=== PATIENT | female | born 1985 | race American Indian/Alaskan Native ===

== ENCOUNTER 2021-03-06 17:48 | Inpatient (IN) | payer OTHER ==
[2021-03-06] MEDS ORDERED: ONDANSETRON 4 MG/2 ML INJ IV PRN (21:37)
[2021-03-06] MEDS ORDERED: DOCUSATE SODIUM 100 MG CAP PO PRN (21:37)
[2021-03-06] MEDS ORDERED: SODIUM CHLORIDE NASAL SPRAY 44ML NS PRN (21:37)
[2021-03-06] MEDS ORDERED: ACETAMINOPHEN 325 MG TAB PO PRN (21:37)
[2021-03-06 21:55] LABS: Hematocrit 35.9 % (30.3-42.9); Hemoglobin 11.5 gm/dl (10.1-14.3); Mean Corpuscular HGB Conc 32 % (30-34); Mean Corpuscular Volume 86 fl (79-97); Platelet Count 247 K/mm3 (140-440); Red Blood Count 4.17 M/mm3 (3.65-5.03); Red Cell Distribution Width 14.1 % (13.2-15.2)
[2021-03-06] MEDS ORDERED: LACTATED RINGERS 1,000 ML IV SCH (22:00)
[2021-03-06 22:14] LABS: Alanine Aminotransferase 9 units/L (7-56); Uric Acid 4.7 mg/dL (3.5-7.6)
[2021-03-06] MEDS ORDERED: LACTATED RINGERS 500 ML IV ONE (22:22)
--- NOTE | 2021-03-06 22:29 | History and Physical Report ---
History of Present Illness Date of examination: 03/06/21 Chief complaint: Pt sent from office d/t elevated blood pressures in severe range History of present illness: EDC Confirmation: 05/01/2021 Past History : 3 Term Births: 1 Premature Births: 0 Living Children: 1 Para: 1 Mult. Births: 0 Prev : 1 Aborta: 0 Elect. Ab: 1 Spont. Ab: 0 Ectopics: 0 # 1 Delivery date: 2005 Weeks Gestation: 11 wks labor: no Delivery type: SAB Comments: Bleeding. D&C, no complications # 2 Delivery date: 2013 Weeks Gestation: 37 labor: no Delivery type: Hours of labor: ? Anesthesia type: general Delivery location: [place] Infant Sex: Female weight: ? Comments: Emergency , don't remeber the details. High blood pressure, Was in the ICU. Past Medical History: Reviewed and updated today: Hypertension Past Surgical History: Reviewed and updated today: negative Family History Summary: Mother - Has Family History of Stomach Cancer - Entered On: 11/09/2020 Father - Has Family History of CVA or Stroke - Entered On: 11/09/2020 Social History: Patient is single Smoking History: Patient has never smoked. Risk Factors: Smoked Tobacco Use: Never smoker Smokeless Tobacco Use: Never Counseled to Quit/Cut Down: yes Passive Smoke Exposure: no HIV High Risk Behavior: no Exercise: no Seatbelt Use: preg-christian counselor % No Dietary Counseling Reason: pn yes PAP Smear History: Date of Last PAP Smear: 11/10/2019 Results: Normal Alcohol Use: no Drug Use: no Past Medical History Anesthesia Complications: negative Anemia: negative Autoimmune Disorder: negative Bleeding Disorder: negative Blood Transfusions: negative Breast Disease: negative Diabetes: negative Heart Disease: negative Hypertension: positive Hepatitis/Liver Disease: negative Kidney Disease/UTI: negative Neurologic/Epilepsy/Migraines: negative Phlebitis/Varicosities: negative Psychiatric: negative Pulmonary Disease/Asthma: negative Thyroid Disease: negative Hospitalizations: negative 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 Infection History Hx of STD: none HIV Risk Eval: no Hepatitis B Risk Eval: low risk Personal hx. of genital herpes: no Partner hx. of genital herpes: no Rash, Viral, or Febrile illness since last LMP? no Varicella/Chicken Pox Status: Previous Disease TB Risk: no Genetic History Congenital Heart Defect: Mom: no Dad: no Mily Disease: Mom: no Dad: no Thalassemia Mom: no Dad: no Neural Tube Defect Mom: no Dad: no Down's Syndrome Mom: no Dad: no Joce-Sachs Mom: no Dad: no Sickle Cell Disease/Trait Mom: no Dad: no Hemophilia Mom: no Dad: no Muscular Dystrophy Mom: no Dad: no Cystic Fibrosis Mom: no Dad: no [place] Chorea Mom: no Dad: no Mental Retardation Mom: no Dad: no Fragile X Mom: no Dad: no Other Genetic/Chromosomal Disorder Mom: no Dad: no Child w/other defect Mom: no Dad: no Enviromental Exposures Xray Exposure: no Medication, drug, or alcohol use since LMP: no Chemical/Other Exposure: no Exposure to Cat Liter: no Hx of Parvovirus (Fifth Disease): no Occupational Exposure to Children: none Laboratory Results Past History Past Medical History: other (see HPI) Past Surgical History: other (see HPI) 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) Family/Genetic History: other (see HPI) - Obstetrical History Expected Date of Delivery: 05/01/21 Actual Gestation: 32 Week(s) 1 Day(s) : 3 Para: 1 Hx # Term Pregnancies: 1 Number of Pregnancies: 0 Spontaneous Abortions: 1 Induced : 0 Number of Living Children: 1 Medications and Allergies Allergies Allergy/AdvReac Type Severity Reaction Status Date / Time No Known Allergies Allergy Unverified 03/06/21 20:34 Active Meds: Active Medications Acetaminophen (Acetaminophen 325 Mg Tab) 650 mg PO Q4H PRN PRN Reason: Pain MILD(1-3)/Fever >100.5/WELLS Docusate Sodium (Docusate Sodium 100 Mg Cap) 100 mg PO Q12H PRN PRN Reason: Constipation Lactated Ringer's (Lactated Ringers) 500 mls @ 999 mls/hr IV BOLUS ONE Stop: 03/06/21 22:52 Lactated Ringer's (Lactated Ringers) 1,000 mls @ 125 mls/hr IV DIRECT JOSÉ MIGUEL Labetalol HCl (Labetalol 200 Mg Tab) 200 mg PO BID JOSÉ MIGUEL Multivitamins/Iron/Calcium ( Tud60-Cf Fumarate-Folic Acid Vit Tab) 1 each PO QDAY JOSÉ MIGUEL Ondansetron HCl (Ondansetron 4 Mg/2 Ml Inj) 4 mg IV Q6H PRN PRN Reason: Nausea And Vomiting Sodium Chloride (Sodium Chloride Nasal [place] 44ml) 2 spray NS Q4H PRN PRN Reason: Congestion Review of Systems All systems: negative - Vital Signs Vital signs: Vital Signs Pulse BP 100 H 153/92 03/06/21 20:17 03/06/21 20:17 Temp Pulse Resp BP Pulse Ox 98 F 97 H 17 142/76 03/06/21 20:19 03/06/21 21:57 03/06/21 20:19 03/06/21 21:57 - Physical Exam Cardiovascular: Regular rate Lungs: Positive: Normal air movement Abdomen: Positive: normal appearance, soft Extremities: Positive: normal Deep Tendon Reflex Grade: Normal +2 - Obstetrical FHR: auscultation normal Uterine Contraction Monitor Mode: External Uterine Contraction Pattern: Absent Uterine Tone Measurement Phase: Resting Results Result Diagrams: 03/06/21 21:30 03/06/21 21:30 All other labs normal. Assessment and Plan 35 y/o @ 32 weeks sent to [facility] from office where she was seen for an appointment. b/p at appointment in office was 150/100. She was counseled on r isks of uncontrolled htn in and pt refuses medication to management htn. Of note, patient has not been compliant with keeping appointments and has yet to do 1hGTT, she has only had 2 other visits prior today (one in October and one in November). Pt has been seen by [facility], last visit 02/26/2021 - efw 18th%. While in triage for pre-e labs, several severely elevated blood pressures recorded. pt denies WELLS/visual changes/epigastric pain. Plan to admit patient for b/p control and 24hr urine collection to evaluate for superimposed pre-e on existing htn. If b/p continue to be in severe range, will start magnesium sulfate for neuro protection. - Patient Problems (1) 32 weeks gestation of Current Visit: Yes Status: Acute (2) HTN (hypertension) Current Visit: Yes Status: Acute Qualifiers: Hypertension type: primary hypertension Qualified Code(s): I10 - Essential (primary) hypertension (3) Non compliance with medical treatment Current Visit: Yes Status: Acute (4) Previous section Current Visit: Yes Status: Acute
--- NOTE | 2021-03-06 23:48 | Ultrasound Report ---
ULTRASOUND OBSTETRIC LIMITED ULTRASOUND BIOPHYSICAL PROFILE INDICATION / CLINICAL INFORMATION: wellbeing, noncompliance with treatment. - Clinical Gestational Age (GA) in weeks, days: 32, 0 TECHNIQUE: Transabdominal. COMPARISON: None available. FINDINGS: BREATHING MOVEMENT = 2 GROSS BODY MOVEMENT = 2 TONE = 2 QUALITATIVE AMNIOTIC FLUID VOLUME = 2 TOTAL BIOPHYSICAL SCORE = 8/8 HEART RATE (beats per minute): 158 PRESENTATION: Cephalic. ADDITIONAL FINDINGS: None. IMPRESSION: 1. Biophysical Score = 8/8 Signer Name: José Luis Galaviz MD Signed: 03/06/2021 11:44 PM Workstation Name: [id number]
[2021-03-06 23:58] LABS: Bilirubin,Urine NEG (Negative); Blood,Urine NEG (Negative); Color,Urine Yellow (Yellow); Mucus,Urine FEW /HPF; Protein,Urine <15 mg/dL mg/dL (Negative); RBC,Urine < 1.0 /HPF (0.0-6.0); Urobilinogen,Urine < 2.0 mg/dL (<2.0); WBC,Urine < 1.0 /HPF (0.0-6.0)
[2021-03-07] MEDS ORDERED: ALUM-MAG HYDROXIDE-SIMETHICONE 200-200-20MG/5ML ORAL LIQD 30 ML PO PRN (00:15)
[2021-03-07] MEDS ORDERED: hydrALAZINE 20 MG/1 ML INJ IV ONE (00:35)
[2021-03-07] MEDS: PRENATAL VIT27-FE FUMARATE-FOLIC ACID VIT TAB PO SCH (11:50)
--- NOTE | 2021-03-07 19:48 | Progress Note ---
Assessment and Plan A: 35 y.o. @ 32.1 wks with cHTN. - Patient Problems (1) HTN (hypertension) Current Visit: Yes Status: Acute Qualifiers: Hypertension type: primary hypertension Qualified Code(s): I10 - Essential (primary) hypertension Plan to address problem: Continue with Labetalol 200mg BID. 24 hr urine in process. Due to be completed @ 0100 on 03/08. Continue with monitoring of blood pressures as ordered. Monitor for s/sx of pre eclampsia. Subjective - Subjective Date of service: 03/07/21 Principal diagnosis: IUP @ 32.1 wks, elevated blood pressures, insufficient care Interval history: Pt denies WELLS, blurred vision spots before her eyes, chest pain, shortness of breath, upper abdominal pain, shortness of breath, ctxs, LOF, and vaginal bleeding. Patient reports: movement normal, no new complaints, no loss of fluid, no vaginal bleeding, no contractions Objective - Vital Signs Vital Signs: Vital Signs - 12hr 03/07/21 03/07/21 03/07/21 07:41 07:45 07:46 Pulse Rate 88 89 Blood Pressure 120/69 O2 Sat by Pulse 98 98 Oximetry O2 Sat by Pulse 99 Oximetry [ Bilateral Throughout] 03/07/21 03/07/21 03/07/21 07:51 07:55 07:56 Pulse Rate 93 H 51 L 35 L Blood Pressure O2 Sat by Pulse 98 91 92 Oximetry O2 Sat by Pulse Oximetry [ Bilateral Throughout] 03/07/21 03/07/21 03/07/21 08:02 08:07 08:12 Pulse Rate 61 89 94 H Blood Pressure O2 Sat by Pulse 86 97 99 Oximetry O2 Sat by Pulse Oximetry [ Bilateral Throughout] 03/07/21 03/07/21 03/07/21 08:16 08:17 08:22 Pulse Rate 90 83 85 Blood Pressure 138/87 O2 Sat by Pulse 99 99 Oximetry O2 Sat by Pulse Oximetry [ Bilateral Throughout] 03/07/21 03/07/21 03/07/21 08:27 08:32 08:37 Pulse Rate 92 H 100 H 103 H Blood Pressure O2 Sat by Pulse 99 99 97 Oximetry O2 Sat by Pulse Oximetry [ Bilateral Throughout] 03/07/21 03/07/21 03/07/21 08:42 08:46 08:48 Pulse Rate 91 H 86 93 H Blood Pressure 134/75 O2 Sat by Pulse 97 98 Oximetry O2 Sat by Pulse Oximetry [ Bilateral Throughout] 03/07/21 03/07/21 03/07/21 08:52 08:58 09:02 Pulse Rate 88 91 H 91 H Blood Pressure O2 Sat by Pulse 98 98 98 Oximetry O2 Sat by Pulse Oximetry [ Bilateral Throughout] 03/07/21 03/07/21 03/07/21 09:07 09:12 09:19 Pulse Rate 88 94 H Blood Pressure O2 Sat by Pulse 98 89 93 Oximetry O2 Sat by Pulse Oximetry [ Bilateral Throughout] 03/07/21 03/07/21 03/07/21 09:20 09:25 09:29 Pulse Rate 88 62 Blood Pressure O2 Sat by Pulse 89 79 L 80 L Oximetry O2 Sat by Pulse Oximetry [ Bilateral Throughout] 03/07/21 03/07/21 03/07/21 09:30 09:36 09:41 Pulse Rate 96 H 65 Blood Pressure O2 Sat by Pulse 87 74 L 81 L Oximetry O2 Sat by Pulse Oximetry [ Bilateral Throughout] 03/07/21 03/07/21 03/07/21 09:46 09:47 09:48 Pulse Rate 96 H 33 L Blood Pressure 149/83 O2 Sat by Pulse 86 86 Oximetry O2 Sat by Pulse Oximetry [ Bilateral Throughout] 03/07/21 03/07/21 03/07/21 09:55 09:56 10:02 Pulse Rate 87 68 Blood Pressure O2 Sat by Pulse 80 L 83 L 85 Oximetry O2 Sat by Pulse Oximetry [ Bilateral Throughout] 03/07/21 03/07/21 03/07/21 10:10 10:15 10:16 Pulse Rate 97 H Blood Pressure 125/82 O2 Sat by Pulse 85 81 L Oximetry O2 Sat by Pulse Oximetry [ Bilateral Throughout] 03/07/21 03/07/21 03/07/21 10:17 10:28 10:33 Pulse Rate 53 L 56 L Blood Pressure O2 Sat by Pulse 80 L 80 L 79 L Oximetry O2 Sat by Pulse Oximetry [ Bilateral Throughout] 03/07/21 03/07/21 03/07/21 10:42 10:43 10:47 Pulse Rate 94 H 61 33 L Blood Pressure O2 Sat by Pulse 68 L 76 L 79 L Oximetry O2 Sat by Pulse Oximetry [ Bilateral Throughout] 03/07/21 03/07/21 03/07/21 11:02 11:15 11:20 Pulse Rate 174 H Blood Pressure O2 Sat by Pulse 79 L 86 70 L Oximetry O2 Sat by Pulse Oximetry [ Bilateral Throughout] 03/07/21 03/07/21 03/07/21 11:25 11:46 11:49 Pulse Rate 82 86 95 H Blood Pressure 133/83 119/69 120/67 O2 Sat by Pulse Oximetry O2 Sat by Pulse Oximetry [ Bilateral Throughout] 03/07/21 03/07/21 03/07/21 12:16 12:46 13:16 Pulse Rate 80 83 80 Blood Pressure 133/77 137/83 127/80 O2 Sat by Pulse Oximetry O2 Sat by Pulse Oximetry [ Bilateral Throughout] 03/07/21 03/07/21 03/07/21 14:17 15:16 15:46 Pulse Rate 90 87 87 Blood Pressure 177/97 139/78 128/76 O2 Sat by Pulse Oximetry O2 Sat by Pulse Oximetry [ Bilateral Throughout] 03/07/21 03/07/21 03/07/21 16:16 16:46 18:16 Pulse Rate 83 89 96 H Blood Pressure 136/70 114/57 140/77 O2 Sat by Pulse Oximetry O2 Sat by Pulse Oximetry [ Bilateral Throughout] 03/07/21 03/07/21 03/07/21 18:18 18:23 18:28 Pulse Rate 98 H 100 H 100 H Blood Pressure O2 Sat by Pulse 99 98 99 Oximetry O2 Sat by Pulse Oximetry [ Bilateral Throughout] 03/07/21 03/07/21 03/07/21 18:33 18:38 18:43 Pulse Rate 100 H 101 H 98 H Blood Pressure O2 Sat by Pulse 98 99 97 Oximetry O2 Sat by Pulse Oximetry [ Bilateral Throughout] 03/07/21 03/07/21 03/07/21 18:46 18:48 18:53 Pulse Rate 98 H 101 H 100 H Blood Pressure 147/82 O2 Sat by Pulse 97 98 Oximetry O2 Sat by Pulse Oximetry [ Bilateral Throughout] 03/07/21 03/07/21 03/07/21 18:58 19:03 19:08 Pulse Rate 91 H 94 H 97 H Blood Pressure O2 Sat by Pulse 98 97 97 Oximetry O2 Sat by Pulse Oximetry [ Bilateral Throughout] 03/07/21 03/07/21 03/07/21 19:13 19:16 19:18 Pulse Rate 101 H 96 H 96 H Blood Pressure 134/73 O2 Sat by Pulse 97 95 98 Oximetry O2 Sat by Pulse Oximetry [ Bilateral Throughout] 03/07/21 03/07/21 03/07/21 19:23 19:28 19:33 Pulse Rate 96 H 97 H 98 H Blood Pressure O2 Sat by Pulse 98 97 97 Oximetry O2 Sat by Pulse Oximetry [ Bilateral Throughout] 03/07/21 19:36 Pulse Rate 100 H Blood Pressure O2 Sat by Pulse 83 L Oximetry O2 Sat by Pulse Oximetry [ Bilateral Throughout] - Exam Narrative Exam: Blood pressure ranges have been mostly in the 120-130's/60-70's. There is one severe range blood pressure recorded when patient was moving around in the bed. Cardiovascular: Normal S1, Normal S2 Lungs: Clear to auscultation Abdomen: Present: normal appearance, soft FHR: category 1 Uterine Contraction Monitor Mode: External Uterine Contraction Pattern: Absent Extremities: normal Deep Tendon Reflex Grade: Normal +2 - Labs Labs: Laboratory Results - last 24 hr 03/06/21 03/06/21 03/06/21 21:30 21:30 23:00 WBC 8.7 RBC 4.17 Hgb 11.5 Hct 35.9 MCV 86 MCH 28 MCHC 32 RDW 14.1 Plt Count 247 Creatinine 0.7 Estimated GFR > 60 Uric Acid 4.7 AST 9 ALT 9 Lactate Dehydrogenase 124 Urine Color Yellow Urine Turbidity Clear Urine pH 6.0 Ur Specific [place] 1.009 Urine Protein <15 mg/dl Urine Glucose (UA) Neg Urine Ketones Neg Urine Blood Neg Urine Nitrite Neg Urine Bilirubin Neg Urine Urobilinogen < 2.0 Ur Leukocyte Esterase Neg Urine WBC (Auto) < 1.0 Urine RBC (Auto) < 1.0 U Epithel Cells (Auto) 4.0 Urine Mucus Few SARS-CoV-2 (PCR) Blood Type Antibody Screen 03/07/21 03/07/21 01:30 09:30 WBC RBC Hgb Hct MCV MCH MCHC RDW Plt Count Creatinine Estimated GFR Uric Acid AST ALT Lactate Dehydrogenase Urine Color Urine Turbidity Urine pH Ur Specific [place] Urine Protein Urine Glucose (UA) Urine Ketones Urine Blood Urine Nitrite Urine Bilirubin Urine Urobilinogen Ur Leukocyte Esterase Urine WBC (Auto) Urine RBC (Auto) U Epithel Cells (Auto) Urine Mucus SARS-CoV-2 (PCR) Negative Blood Type O POSITIVE Antibody Screen Negative
--- NOTE | 2021-03-08 06:21 | Event Note ---
Date: 03/08/21 Pt 24 hour urine in mild range for pre E. Baseline 24hruine was <300. Will Consult [facility] this am to see if inpt or out managment is recommended at this time.
--- NOTE | 2021-03-08 08:05 | Progress Note ---
<YOELRADHA Ulises - Last Filed: 03/08/21 08:04> Assessment and Plan - Patient Problems (1) 32 weeks gestation of Current Visit: Yes Status: Acute (2) HTN (hypertension) Current Visit: Yes Status: Acute Qualifiers: Hypertension type: primary hypertension Qualified Code(s): I10 - Essential (primary) hypertension (3) Non compliance with medical treatment Current Visit: Yes Status: Acute (4) Previous section Current Visit: Yes Status: Acute (5) Pre-eclampsia superimposed on chronic hypertension Current Visit: Yes Status: Acute Subjective - Subjective Date of service: 03/08/21 Principal diagnosis: IUP @ 32.2 wks; Pre-e, insufficient care Interval history: EDC Confirmation: 05/01/2021 Past History : 3 Term Births: 1 Premature Births: 0 Living Children: 1 Para: 1 Mult. Births: 0 Prev : 1 Aborta: 0 Elect. Ab: 1 Spont. Ab: 0 Ectopics: 0 # 1 Delivery date: 2005 Weeks Gestation: 11 wks labor: no Delivery type: SAB Comments: Bleeding. D&C, no complications # 2 Delivery date: 2013 Weeks Gestation: 37 labor: no Delivery type: Hours of labor: ? Anesthesia type: general Delivery location: [facility] Sex: Female weight: ? Comments: Emergency , don't remeber the details. High blood pressure, Was in the ICU. Past Medical History: Reviewed and updated today: Hypertension Past Surgical History: Reviewed and updated today: negative Family History Summary: Mother - Has Family History of Stomach Cancer - Entered On: 11/09/2020 Father - Has Family History of CVA or Stroke - Entered On: 11/09/2020 Social History: Patient is single Smoking History: Patient has never smoked. Risk Factors: Smoked Tobacco Use: Never smoker Smokeless Tobacco Use: Never Counseled to Quit/Cut Down: yes Passive Smoke Exposure: no HIV High Risk Behavior: no Exercise: no Seatbelt Use: preg-relationship counselor % No Dietary Counseling Reason: pn yes PAP Smear History: Date of Last PAP Smear: 11/10/2019 Results: Normal Alcohol Use: no Drug Use: no Past Medical History Anesthesia Complications: negative Anemia: negative Autoimmune Disorder: negative Bleeding Disorder: negative Blood Transfusions: negative Breast Disease: negative Diabetes: negative Heart Disease: negative Hypertension: positive Hepatitis/Liver Disease: negative Kidney Disease/UTI: negative Neurologic/Epilepsy/Migraines: negative Phlebitis/Varicosities: negative Psychiatric: negative Pulmonary Disease/Asthma: negative Thyroid Disease: negative Hospitalizations: negative Surgery (Non-tail trimmer): negative Abnormal PAP: negative LINH Exposure: negative Infertility: negative Uterine Anomaly: negative Uterine Surgery (not C/S): negative Other Gynecologic Problems: negative Social Hx: Patient is single Smoking History: Patient has never smoked. Infection History Hx of STD: none HIV Risk Eval: no Hepatitis B Risk Eval: low risk Personal hx. of genital herpes: no Partner hx. of genital herpes: no Rash, Viral, or Febrile illness since last LMP? no Varicella/Chicken Pox Status: Previous Disease TB Risk: no Genetic History Congenital Heart Defect: Mom: no Dad: no Mily Disease: Mom: no Dad: no Thalassemia Mom: no Dad: no Neural Tube Defect Mom: no Dad: no Down's Syndrome Mom: no Dad: no Joce-Sachs Mom: no Dad: no Sickle Cell Disease/Trait Mom: no Dad: no Hemophilia Mom: no Dad: no Muscular Dystrophy Mom: no Dad: no Cystic Fibrosis Mom: no Dad: no [place] Chorea Mom: no Dad: no Mental Retardation Mom: no Dad: no Fragile X Mom: no Dad: no Other Genetic/Chromosomal Disorder Mom: no Dad: no Child w/other defect Mom: no Dad: no Enviromental Exposures Xray Exposure: no Medication, drug, or alcohol use since LMP: no Chemical/Other Exposure: no Exposure to Cat Liter: no Hx of Parvovirus (Fifth Disease): no Occupational Exposure to Children: none Laboratory Results Patient reports: movement normal, no new complaints, no loss of fluid, no vaginal bleeding, no contractions Objective - Vital Signs Vital Signs: Vital Signs - 12hr 03/07/21 03/07/21 03/07/21 20:07 20:12 20:16 Temperature Pulse Rate 101 H 100 H 90 Blood Pressure 125/70 O2 Sat by Pulse 99 99 Oximetry O2 Sat by Pulse Oximetry [ Bilateral Throughout] 03/07/21 03/07/21 03/07/21 20:17 20:22 20:27 Temperature Pulse Rate 92 H 92 H 94 H Blood Pressure O2 Sat by Pulse 98 99 98 Oximetry O2 Sat by Pulse Oximetry [ Bilateral Throughout] 03/07/21 03/07/21 03/07/21 20:32 20:37 20:42 Temperature Pulse Rate 93 H 94 H 96 H Blood Pressure O2 Sat by Pulse 99 99 99 Oximetry O2 Sat by Pulse Oximetry [ Bilateral Throughout] 03/07/21 03/07/21 03/07/21 20:46 20:47 20:52 Temperature Pulse Rate 91 H 92 H 91 H Blood Pressure 110/66 O2 Sat by Pulse 95 97 97 Oximetry O2 Sat by Pulse Oximetry [ Bilateral Throughout] 03/07/21 03/07/21 03/07/21 20:57 21:02 21:07 Temperature Pulse Rate 83 85 88 Blood Pressure O2 Sat by Pulse 97 98 98 Oximetry O2 Sat by Pulse Oximetry [ Bilateral Throughout] 03/07/21 03/07/21 03/07/21 21:12 21:16 21:17 Temperature Pulse Rate 88 88 90 Blood Pressure 112/56 O2 Sat by Pulse 98 97 Oximetry O2 Sat by Pulse Oximetry [ Bilateral Throughout] 03/07/21 03/07/21 03/07/21 21:22 21:27 21:32 Temperature Pulse Rate 90 89 88 Blood Pressure O2 Sat by Pulse 97 97 97 Oximetry O2 Sat by Pulse Oximetry [ Bilateral Throughout] 03/07/21 03/07/21 03/07/21 21:37 21:42 21:46 Temperature Pulse Rate 87 88 82 Blood Pressure 145/81 O2 Sat by Pulse 97 97 Oximetry O2 Sat by Pulse Oximetry [ Bilateral Throughout] 03/07/21 03/07/21 03/07/21 21:47 21:52 21:57 Temperature Pulse Rate 83 80 84 Blood Pressure O2 Sat by Pulse 98 98 98 Oximetry O2 Sat by Pulse Oximetry [ Bilateral Throughout] 03/07/21 03/07/21 03/07/21 22:02 22:07 22:12 Temperature Pulse Rate 84 82 84 Blood Pressure O2 Sat by Pulse 98 98 98 Oximetry O2 Sat by Pulse Oximetry [ Bilateral Throughout] 03/07/21 03/07/21 03/07/21 22:16 22:17 22:22 Temperature Pulse Rate 90 86 85 Blood Pressure 137/82 O2 Sat by Pulse 95 99 99 Oximetry O2 Sat by Pulse Oximetry [ Bilateral Throughout] 03/07/21 03/07/21 03/07/21 22:27 22:52 22:53 Temperature Pulse Rate 91 H 94 H 101 H Blood Pressure 129/75 O2 Sat by Pulse 98 98 Oximetry O2 Sat by Pulse Oximetry [ Bilateral Throughout] 03/07/21 03/07/21 03/07/21 22:58 23:03 23:08 Temperature Pulse Rate 90 88 89 Blood Pressure O2 Sat by Pulse 99 99 100 Oximetry O2 Sat by Pulse Oximetry [ Bilateral Throughout] 03/07/21 03/07/21 03/07/21 23:13 23:16 23:18 Temperature Pulse Rate 94 H 94 H 91 H Blood Pressure 138/75 O2 Sat by Pulse 100 99 Oximetry O2 Sat by Pulse Oximetry [ Bilateral Throughout] 03/07/21 03/07/21 03/07/21 23:23 23:28 23:33 Temperature Pulse Rate 96 H 102 H 94 H Blood Pressure O2 Sat by Pulse 99 100 99 Oximetry O2 Sat by Pulse Oximetry [ Bilateral Throughout] 03/07/21 03/07/21 03/07/21 23:38 23:43 23:46 Temperature Pulse Rate 91 H 89 99 H Blood Pressure 154/79 O2 Sat by Pulse 98 99 Oximetry O2 Sat by Pulse Oximetry [ Bilateral Throughout] 03/07/21 03/07/21 03/07/21 23:48 23:53 23:58 Temperature Pulse Rate 106 H 96 H 98 H Blood Pressure O2 Sat by Pulse 99 97 98 Oximetry O2 Sat by Pulse Oximetry [ Bilateral Throughout] 03/08/21 03/08/21 03/08/21 00:00 00:03 00:08 Temperature 98.6 F Pulse Rate 88 88 Blood Pressure O2 Sat by Pulse 98 98 Oximetry O2 Sat by Pulse Oximetry [ Bilateral Throughout] 03/08/21 03/08/21 03/08/21 00:13 00:16 00:18 Temperature Pulse Rate 93 H 93 H 93 H Blood Pressure 130/74 O2 Sat by Pulse 98 98 Oximetry O2 Sat by Pulse Oximetry [ Bilateral Throughout] 03/08/21 03/08/21 03/08/21 00:23 00:28 00:35 Temperature Pulse Rate 93 H 96 H Blood Pressure O2 Sat by Pulse 98 91 80 L Oximetry O2 Sat by Pulse Oximetry [ Bilateral Throughout] 03/08/21 03/08/21 03/08/21 00:38 00:41 00:45 Temperature Pulse Rate 122 H 111 H Blood Pressure O2 Sat by Pulse 62 L 67 L 89 Oximetry O2 Sat by Pulse Oximetry [ Bilateral Throughout] 03/08/21 03/08/21 03/08/21 00:49 00:50 00:55 Temperature Pulse Rate 90 91 H 87 Blood Pressure 142/87 O2 Sat by Pulse 99 99 Oximetry O2 Sat by Pulse Oximetry [ Bilateral Throughout] 03/08/21 03/08/21 03/08/21 01:00 01:05 01:10 Temperature Pulse Rate 87 94 H 91 H Blood Pressure O2 Sat by Pulse 98 99 99 Oximetry O2 Sat by Pulse Oximetry [ Bilateral Throughout] 03/08/21 03/08/21 03/08/21 01:15 01:16 01:20 Temperature Pulse Rate 86 88 86 Blood Pressure 137/78 O2 Sat by Pulse 98 99 Oximetry O2 Sat by Pulse Oximetry [ Bilateral Throughout] 03/08/21 03/08/21 03/08/21 01:25 01:30 01:35 Temperature Pulse Rate 89 92 H 85 Blood Pressure O2 Sat by Pulse 98 98 97 Oximetry O2 Sat by Pulse Oximetry [ Bilateral Throughout] 03/08/21 03/08/21 03/08/21 01:40 01:45 01:46 Temperature Pulse Rate 93 H 92 H 88 Blood Pressure 123/71 O2 Sat by Pulse 99 98 Oximetry O2 Sat by Pulse Oximetry [ Bilateral Throughout] 03/08/21 03/08/21 03/08/21 01:50 01:55 02:00 Temperature Pulse Rate 90 88 95 H Blood Pressure O2 Sat by Pulse 98 98 99 Oximetry O2 Sat by Pulse Oximetry [ Bilateral Throughout] 03/08/21 03/08/21 03/08/21 02:05 02:10 02:36 Temperature Pulse Rate 100 H 94 H 57 L Blood Pressure O2 Sat by Pulse 100 100 93 Oximetry O2 Sat by Pulse Oximetry [ Bilateral Throughout] 03/08/21 03/08/21 03/08/21 02:37 02:38 02:42 Temperature Pulse Rate 79 82 84 Blood Pressure 162/87 O2 Sat by Pulse 98 99 Oximetry O2 Sat by Pulse Oximetry [ Bilateral Throughout] 03/08/21 03/08/21 03/08/21 02:46 02:47 02:52 Temperature Pulse Rate 86 85 86 Blood Pressure 132/69 O2 Sat by Pulse 98 99 Oximetry O2 Sat by Pulse Oximetry [ Bilateral Throughout] 03/08/21 03/08/2122 02:57 03:02 03:07 Temperature Pulse Rate 89 88 84 Blood Pressure O2 Sat by Pulse 99 98 99 Oximetry O2 Sat by Pulse Oximetry [ Bilateral Throughout] 03/08/21 03/08/21 03/08/21 03:12 03:16 03:17 Temperature Pulse Rate 85 90 88 Blood Pressure 131/68 O2 Sat by Pulse 99 99 Oximetry O2 Sat by Pulse Oximetry [ Bilateral Throughout] 03/08/21 03/08/21 03/08/21 03:22 03:27 03:32 Temperature Pulse Rate 88 84 85 Blood Pressure O2 Sat by Pulse 98 99 98 Oximetry O2 Sat by Pulse Oximetry [ Bilateral Throughout] 03/08/21 03/08/21 03/08/21 03:37 03:42 03:46 Temperature Pulse Rate 94 H 87 89 Blood Pressure 119/67 O2 Sat by Pulse 97 98 Oximetry O2 Sat by Pulse Oximetry [ Bilateral Throughout] 03/08/21 03/08/21 03/08/21 03:47 03:52 03:57 Temperature Pulse Rate 89 92 H 83 Blood Pressure O2 Sat by Pulse 98 97 98 Oximetry O2 Sat by Pulse Oximetry [ Bilateral Throughout] 03/08/21 03/08/21 03/08/21 04:02 04:06 04:07 Temperature Pulse Rate 85 65 61 Blood Pressure O2 Sat by Pulse 97 78 L 90 Oximetry O2 Sat by Pulse Oximetry [ Bilateral Throughout] 03/08/21 03/08/21 03/08/21 04:11 04:12 04:16 Temperature Pulse Rate 91 H 99 H 86 Blood Pressure 122/56 O2 Sat by Pulse 94 99 Oximetry O2 Sat by Pulse Oximetry [ Bilateral Throughout] 03/08/21 03/08/21 03/08/21 04:17 04:22 04:27 Temperature Pulse Rate 87 90 95 H Blood Pressure O2 Sat by Pulse 98 99 99 Oximetry O2 Sat by Pulse Oximetry [ Bilateral Throughout] 03/08/21 03/08/21 03/08/21 04:32 04:37 04:42 Temperature Pulse Rate 86 78 83 Blood Pressure O2 Sat by Pulse 98 99 99 Oximetry O2 Sat by Pulse Oximetry [ Bilateral Throughout] 03/08/21 03/08/21 03/08/21 04:46 04:47 04:52 Temperature Pulse Rate 84 82 83 Blood Pressure 117/58 O2 Sat by Pulse 99 99 Oximetry O2 Sat by Pulse Oximetry [ Bilateral Throughout] 03/08/21 03/08/21 03/08/21 04:57 05:02 05:07 Temperature Pulse Rate 81 85 88 Blood Pressure O2 Sat by Pulse 99 98 98 Oximetry O2 Sat by Pulse Oximetry [ Bilateral Throughout] 03/08/21 03/08/21 03/08/21 05:12 05:16 05:17 Temperature Pulse Rate 90 87 88 Blood Pressure 138/65 O2 Sat by Pulse 99 98 Oximetry O2 Sat by Pulse Oximetry [ Bilateral Throughout] 03/08/21 03/08/21 03/08/21 05:22 05:27 05:32 Temperature Pulse Rate 81 79 86 Blood Pressure O2 Sat by Pulse 98 97 98 Oximetry O2 Sat by Pulse Oximetry [ Bilateral Throughout] 03/08/21 03/08/21 03/08/21 05:37 05:42 05:46 Temperature Pulse Rate 97 H 83 95 H Blood Pressure 133/66 O2 Sat by Pulse 98 98 Oximetry O2 Sat by Pulse Oximetry [ Bilateral Throughout] 03/08/21 03/08/21 03/08/21 05:47 05:52 05:57 Temperature Pulse Rate 86 81 80 Blood Pressure O2 Sat by Pulse 98 97 97 Oximetry O2 Sat by Pulse Oximetry [ Bilateral Throughout] 03/08/21 03/08/21 03/08/21 06:02 06:07 06:12 Temperature Pulse Rate 82 81 84 Blood Pressure O2 Sat by Pulse 98 97 97 Oximetry O2 Sat by Pulse Oximetry [ Bilateral Throughout] 03/08/21 03/08/21 03/08/21 06:16 06:17 06:22 Temperature Pulse Rate 85 88 81 Blood Pressure 121/70 O2 Sat by Pulse 95 97 98 Oximetry O2 Sat by Pulse Oximetry [ Bilateral Throughout] 03/08/21 03/08/21 03/08/21 06:23 06:27 06:29 Temperature Pulse Rate 84 82 87 Blood Pressure O2 Sat by Pulse 90 98 95 Oximetry O2 Sat by Pulse Oximetry [ Bilateral Throughout] 03/08/21 03/08/21 03/08/21 06:32 06:36 06:37 Temperature Pulse Rate 97 H 81 79 Blood Pressure O2 Sat by Pulse 97 93 100 Oximetry O2 Sat by Pulse Oximetry [ Bilateral Throughout] 03/08/21 03/08/21 03/08/21 06:42 06:46 06:47 Temperature Pulse Rate 98 H 74 77 Blood Pressure 116/55 O2 Sat by Pulse 97 98 Oximetry O2 Sat by Pulse Oximetry [ Bilateral Throughout] 03/08/21 03/08/21 03/08/21 06:52 06:57 07:02 Temperature Pulse Rate 76 82 79 Blood Pressure O2 Sat by Pulse 98 99 99 Oximetry O2 Sat by Pulse Oximetry [ Bilateral Throughout] 03/08/21 03/08/21 03/08/21 07:07 07:12 07:16 Temperature Pulse Rate 77 83 77 Blood Pressure 128/61 O2 Sat by Pulse 99 99 Oximetry O2 Sat by Pulse Oximetry [ Bilateral Throughout] 03/08/21 03/08/21 03/08/21 07:17 07:22 07:27 Temperature Pulse Rate 81 77 80 Blood Pressure O2 Sat by Pulse 98 99 99 Oximetry O2 Sat by Pulse Oximetry [ Bilateral Throughout] 03/08/21 03/08/21 03/08/21 07:32 07:35 07:39 Temperature Pulse Rate 86 84 133 H Blood Pressure O2 Sat by Pulse 100 92 91 Oximetry O2 Sat by Pulse Oximetry [ Bilateral Throughout] 03/08/21 03/08/21 03/08/21 07:44 07:45 07:46 Temperature 98.2 F Pulse Rate 84 86 Blood Pressure 152/83 O2 Sat by Pulse 94 Oximetry O2 Sat by Pulse 97 Oximetry [ Bilateral Throughout] 03/08/21 03/08/21 03/08/21 07:49 07:54 07:59 Temperature Pulse Rate 82 81 100 H Blood Pressure O2 Sat by Pulse 98 97 99 Oximetry O2 Sat by Pulse Oximetry [ Bilateral Throughout] - Exam Breasts: normal Cardiovascular: Regular rate Lungs: Clear to auscultation, Normal air movement Abdomen: Present: normal appearance, soft Uterus: Present: normal, fundal height above umbilicus FHR: auscultation normal, category 1 Uterine Contraction Monitor Mode: External Uterine Contraction Pattern: Absent Uterine Tone Measurement Phase: Resting Extremities: normal Deep Tendon Reflex Grade: Normal +2 - Labs Labs: Abnormal Labs 03/08/21 01:29 Ur Total Protein 24 Hr 320.00 H Laboratory Results - last 24 hr 03/07/21 03/08/21 09:30 01:29 Urine Total Volume 4000 Ur Total Protein 24 Hr 320.00 H Urine Total Protein 8 SARS-CoV-2 (PCR) Negative <VERONICA MIN - Last Filed: 03/08/21 09:24> Assessment and Plan Diagnoses and plan of care explained. Attempt to educate her on Preeclampsia, risks and consequences discussed. Continue current care MFM consult pending Objective - Vital Signs Vital Signs: Vital Signs - 12hr 03/07/21 03/07/21 03/07/21 21:22 21:27 21:32 Temperature Pulse Rate 90 89 88 Blood Pressure O2 Sat by Pulse 97 97 97 Oximetry O2 Sat by Pulse Oximetry [ Bilateral Throughout] 03/07/21 03/07/21 03/07/21 21:37 21:42 21:46 Temperature Pulse Rate 87 88 82 Blood Pressure 145/81 O2 Sat by Pulse 97 97 Oximetry O2 Sat by Pulse Oximetry [ Bilateral Throughout] 03/07/21 03/07/21 03/07/21 21:47 21:52 21:57 Temperature Pulse Rate 83 80 84 Blood Pressure O2 Sat by Pulse 98 98 98 Oximetry O2 Sat by Pulse Oximetry [ Bilateral Throughout] 03/07/21 03/07/21 03/07/21 22:02 22:07 22:12 Temperature Pulse Rate 84 82 84 Blood Pressure O2 Sat by Pulse 98 98 98 Oximetry O2 Sat by Pulse Oximetry [ Bilateral Throughout] 03/07/21 03/07/21 03/07/21 22:16 22:17 22:22 Temperature Pulse Rate 90 86 85 Blood Pressure 137/82 O2 Sat by Pulse 95 99 99 Oximetry O2 Sat by Pulse Oximetry [ Bilateral Throughout] 03/07/21 03/07/21 03/07/21 22:27 22:52 22:53 Temperature Pulse Rate 91 H 94 H 101 H Blood Pressure 129/75 O2 Sat by Pulse 98 98 Oximetry O2 Sat by Pulse Oximetry [ Bilateral Throughout] 03/07/21 03/07/21 03/07/21 22:58 23:03 23:08 Temperature Pulse Rate 90 88 89 Blood Pressure O2 Sat by Pulse 99 99 100 Oximetry O2 Sat by Pulse Oximetry [ Bilateral Throughout] 03/07/21 03/07/21 03/07/21 23:13 23:16 23:18 Temperature Pulse Rate 94 H 94 H 91 H Blood Pressure 138/75 O2 Sat by Pulse 100 99 Oximetry O2 Sat by Pulse Oximetry [ Bilateral Throughout] 0103/07/21 03/07/21 23:23 23:28 23:33 Temperature Pulse Rate 96 H 102 H 94 H Blood Pressure O2 Sat by Pulse 99 100 99 Oximetry O2 Sat by Pulse Oximetry [ Bilateral Throughout] 03/07/21 03/07/21 03/07/21 23:38 23:43 23:46 Temperature Pulse Rate 91 H 89 99 H Blood Pressure 154/79 O2 Sat by Pulse 98 99 Oximetry O2 Sat by Pulse Oximetry [ Bilateral Throughout] 03/07/21 03/07/21 03/07/21 23:48 23:53 23:58 Temperature Pulse Rate 106 H 96 H 98 H Blood Pressure O2 Sat by Pulse 99 97 98 Oximetry O2 Sat by Pulse Oximetry [ Bilateral Throughout] 03/08/21 03/08/21 03/08/21 00:00 00:03 00:08 Temperature 98.6 F Pulse Rate 88 88 Blood Pressure O2 Sat by Pulse 98 98 Oximetry O2 Sat by Pulse Oximetry [ Bilateral Throughout] 03/08/21 03/08/21 03/08/21 00:13 00:16 00:18 Temperature Pulse Rate 93 H 93 H 93 H Blood Pressure 130/74 O2 Sat by Pulse 98 98 Oximetry O2 Sat by Pulse Oximetry [ Bilateral Throughout] 03/08/21 03/08/21 03/08/21 00:23 00:28 00:35 Temperature Pulse Rate 93 H 96 H Blood Pressure O2 Sat by Pulse 98 91 80 L Oximetry O2 Sat by Pulse Oximetry [ Bilateral Throughout] 03/08/21 03/08/21 03/08/21 00:38 00:41 00:45 Temperature Pulse Rate 122 H 111 H Blood Pressure O2 Sat by Pulse 62 L 67 L 89 Oximetry O2 Sat by Pulse Oximetry [ Bilateral Throughout] 03/08/21 03/08/21 03/08/21 00:49 00:50 00:55 Temperature Pulse Rate 90 91 H 87 Blood Pressure 142/87 O2 Sat by Pulse 99 99 Oximetry O2 Sat by Pulse Oximetry [ Bilateral Throughout] 03/08/21 03/08/21 03/08/21 01:00 01:05 01:10 Temperature Pulse Rate 87 94 H 91 H Blood Pressure O2 Sat by Pulse 98 99 99 Oximetry O2 Sat by Pulse Oximetry [ Bilateral Throughout] 03/08/21 03/08/21 03/08/21 01:15 01:16 01:20 Temperature Pulse Rate 86 88 86 Blood Pressure 137/78 O2 Sat by Pulse 98 99 Oximetry O2 Sat by Pulse Oximetry [ Bilateral Throughout] 03/08/21 03/08/21 03/08/21 01:25 01:30 01:35 Temperature Pulse Rate 89 92 H 85 Blood Pressure O2 Sat by Pulse 98 98 97 Oximetry O2 Sat by Pulse Oximetry [ Bilateral Throughout] 03/08/21 03/08/21 03/08/21 01:40 01:45 01:46 Temperature Pulse Rate 93 H 92 H 88 Blood Pressure 123/71 O2 Sat by Pulse 99 98 Oximetry O2 Sat by Pulse Oximetry [ Bilateral Throughout] 03/08/21 03/08/21 03/08/21 01:50 01:55 02:00 Temperature Pulse Rate 90 88 95 H Blood Pressure O2 Sat by Pulse 98 98 99 Oximetry O2 Sat by Pulse Oximetry [ Bilateral Throughout] 03/08/21 03/08/21 03/08/21 02:05 02:10 02:36 Temperature Pulse Rate 100 H 94 H 57 L Blood Pressure O2 Sat by Pulse 100 100 93 Oximetry O2 Sat by Pulse Oximetry [ Bilateral Throughout] 03/08/21 03/08/21 03/08/21 02:37 02:38 02:42 Temperature Pulse Rate 79 82 84 Blood Pressure 162/87 O2 Sat by Pulse 98 99 Oximetry O2 Sat by Pulse Oximetry [ Bilateral Throughout] 03/08/21 03/08/21 03/08/21 02:46 02:47 02:52 Temperature Pulse Rate 86 85 86 Blood Pressure 132/69 O2 Sat by Pulse 98 99 Oximetry O2 Sat by Pulse Oximetry [ Bilateral Throughout] 03/08/21 03/08/21 03/08/21 02:57 03:02 03:07 Temperature Pulse Rate 89 88 84 Blood Pressure O2 Sat by Pulse 99 98 99 Oximetry O2 Sat by Pulse Oximetry [ Bilateral Throughout] 03/08/21 03/08/21 03/08/21 03:12 03:16 03:17 Temperature Pulse Rate 85 90 88 Blood Pressure 131/68 O2 Sat by Pulse 99 99 Oximetry O2 Sat by Pulse Oximetry [ Bilateral Throughout] 03/08/21 03/08/21 03/08/21 03:22 03:27 03:32 Temperature Pulse Rate 88 84 85 Blood Pressure O2 Sat by Pulse 98 99 98 Oximetry O2 Sat by Pulse Oximetry [ Bilateral Throughout] 03/08/21 03/08/21 03/08/21 03:37 03:42 03:46 Temperature Pulse Rate 94 H 87 89 Blood Pressure 119/67 O2 Sat by Pulse 97 98 Oximetry O2 Sat by Pulse Oximetry [ Bilateral Throughout] 03/08/21 03/08/21 03/08/21 03:47 03:52 03:57 Temperature Pulse Rate 89 92 H 83 Blood Pressure O2 Sat by Pulse 98 97 98 Oximetry O2 Sat by Pulse Oximetry [ Bilateral Throughout] 03/08/21 03/08/21 03/08/21 04:02 04:06 04:07 Temperature Pulse Rate 85 65 61 Blood Pressure O2 Sat by Pulse 97 78 L 90 Oximetry O2 Sat by Pulse Oximetry [ Bilateral Throughout] 03/08/21 03/08/21 03/08/21 04:11 04:12 04:16 Temperature Pulse Rate 91 H 99 H 86 Blood Pressure 122/56 O2 Sat by Pulse 94 99 Oximetry O2 Sat by Pulse Oximetry [ Bilateral Throughout] 03/08/21 03/08/21 03/08/21 04:17 04:22 04:27 Temperature Pulse Rate 87 90 95 H Blood Pressure O2 Sat by Pulse 98 99 99 Oximetry O2 Sat by Pulse Oximetry [ Bilateral Throughout] 03/08/21 03/08/21 03/08/21 04:32 04:37 04:42 Temperature Pulse Rate 86 78 83 Blood Pressure O2 Sat by Pulse 98 99 99 Oximetry O2 Sat by Pulse Oximetry [ Bilateral Throughout] 03/08/21 03/08/21 03/08/21 04:46 04:47 04:52 Temperature Pulse Rate 84 82 83 Blood Pressure 117/58 O2 Sat by Pulse 99 99 Oximetry O2 Sat by Pulse Oximetry [ Bilateral Throughout] 03/08/21 03/08/21 03/08/21 04:57 05:02 05:07 Temperature Pulse Rate 81 85 88 Blood Pressure O2 Sat by Pulse 99 98 98 Oximetry O2 Sat by Pulse Oximetry [ Bilateral Throughout] 03/08/21 03/08/21 03/08/21 05:12 05:16 05:17 Temperature Pulse Rate 90 87 88 Blood Pressure 138/65 O2 Sat by Pulse 99 98 Oximetry O2 Sat by Pulse Oximetry [ Bilateral Throughout] 03/08/21 03/08/21 03/08/21 05:22 05:27 05:32 Temperature Pulse Rate 81 79 86 Blood Pressure O2 Sat by Pulse 98 97 98 Oximetry O2 Sat by Pulse Oximetry [ Bilateral Throughout] 03/08/21 03/08/21 03/08/21 05:37 05:42 05:46 Temperature Pulse Rate 97 H 83 95 H Blood Pressure 133/66 O2 Sat by Pulse 98 98 Oximetry O2 Sat by Pulse Oximetry [ Bilateral Throughout] 03/08/21 03/08/21 03/08/21 05:47 05:52 05:57 Temperature Pulse Rate 86 81 80 Blood Pressure O2 Sat by Pulse 98 97 97 Oximetry O2 Sat by Pulse Oximetry [ Bilateral Throughout] 03/08/21 03/08/21 03/08/21 06:02 06:07 06:12 Temperature Pulse Rate 82 81 84 Blood Pressure O2 Sat by Pulse 98 97 97 Oximetry O2 Sat by Pulse Oximetry [ Bilateral Throughout] 03/08/21 03/08/21 03/08/21 06:16 06:17 06:22 Temperature Pulse Rate 85 88 81 Blood Pressure 121/70 O2 Sat by Pulse 95 97 98 Oximetry O2 Sat by Pulse Oximetry [ Bilateral Throughout] 03/08/21 03/08/21 03/08/21 06:23 06:27 06:29 Temperature Pulse Rate 84 82 87 Blood Pressure O2 Sat by Pulse 90 98 95 Oximetry O2 Sat by Pulse Oximetry [ Bilateral Throughout] 03/08/21 03/08/21 03/08/21 06:32 06:36 06:37 Temperature Pulse Rate 97 H 81 79 Blood Pressure O2 Sat by Pulse 97 93 100 Oximetry O2 Sat by Pulse Oximetry [ Bilateral Throughout] 03/08/21 03/08/21 03/08/21 06:42 06:46 06:47 Temperature Pulse Rate 98 H 74 77 Blood Pressure 116/55 O2 Sat by Pulse 97 98 Oximetry O2 Sat by Pulse Oximetry [ Bilateral Throughout] 03/08/21 03/08/21 03/08/21 06:52 06:57 07:02 Temperature Pulse Rate 76 82 79 Blood Pressure O2 Sat by Pulse 98 99 99 Oximetry O2 Sat by Pulse Oximetry [ Bilateral Throughout] 03/08/21 03/08/21 03/08/21 07:07 07:12 07:16 Temperature Pulse Rate 77 83 77 Blood Pressure 128/61 O2 Sat by Pulse 99 99 Oximetry O2 Sat by Pulse Oximetry [ Bilateral Throughout] 03/08/21 03/08/21 03/08/21 07:17 07:22 07:27 Temperature Pulse Rate 81 77 80 Blood Pressure O2 Sat by Pulse 98 99 99 Oximetry O2 Sat by Pulse Oximetry [ Bilateral Throughout] 03/08/21 03/08/21 03/08/21 07:32 07:35 07:39 Temperature Pulse Rate 86 84 133 H Blood Pressure O2 Sat by Pulse 100 92 91 Oximetry O2 Sat by Pulse Oximetry [ Bilateral Throughout] 03/08/21 03/08/21 03/08/21 07:44 07:45 07:46 Temperature 98.2 F Pulse Rate 84 86 Blood Pressure 152/83 O2 Sat by Pulse 94 Oximetry O2 Sat by Pulse 97 Oximetry [ Bilateral Throughout] 03/08/21 03/08/21 03/08/21 07:49 07:54 07:59 Temperature Pulse Rate 82 81 100 H Blood Pressure O2 Sat by Pulse 98 97 99 Oximetry O2 Sat by Pulse Oximetry [ Bilateral Throughout] 03/08/21 03/08/21 03/08/21 08:04 08:09 08:14 Temperature Pulse Rate 87 93 H 60 Blood Pressure O2 Sat by Pulse 98 83 L 90 Oximetry O2 Sat by Pulse Oximetry [ Bilateral Throughout] 03/08/21 03/08/21 03/08/21 08:17 08:19 08:20 Temperature Pulse Rate 96 H 103 H Blood Pressure 180/83 O2 Sat by Pulse 86 86 Oximetry O2 Sat by Pulse Oximetry [ Bilateral Throughout] 03/08/21 03/08/21 03/08/21 08:25 08:26 08:46 Temperature Pulse Rate 91 H 66 91 H Blood Pressure 152/76 134/69 O2 Sat by Pulse 81 L 85 Oximetry O2 Sat by Pulse Oximetry [ Bilateral Throughout] 03/08/21 03/08/21 03/08/21 08:49 08:50 08:55 Temperature Pulse Rate 93 H 103 H Blood Pressure O2 Sat by Pulse 81 L 99 99 Oximetry O2 Sat by Pulse Oximetry [ Bilateral Throughout] 03/08/21 03/08/21 03/08/21 09:00 09:05 09:10 Temperature Pulse Rate 101 H 101 H 104 H Blood Pressure O2 Sat by Pulse 99 98 99 Oximetry O2 Sat by Pulse Oximetry [ Bilateral Throughout] 03/08/21 03/08/21 09:15 09:16 Temperature Pulse Rate 102 H 99 H Blood Pressure 140/84 O2 Sat by Pulse 99 Oximetry O2 Sat by Pulse Oximetry [ Bilateral Throughout] - Labs Labs: Abnormal Labs 03/08/21 01:29 Ur Total Protein 24 Hr 320.00 H Laboratory Results - last 24 hr 03/07/21 03/08/21 09:30 01:29 Urine Total Volume 4000 Ur Total Protein 24 Hr 320.00 H Urine Total Protein 8 SARS-CoV-2 (PCR) Negative
[2021-03-08] MEDS ORDERED: ACETAMINOPHEN 325 MG TAB PO PRN (08:59)
[2021-03-08] MEDS ORDERED: ACETAMINOPHEN 500 MG TAB PO PRN (09:30)
[2021-03-08] MEDS: PRENATAL VIT27-FE FUMARATE-FOLIC ACID VIT TAB PO SCH ×2 (09:41→15:16)
[2021-03-08] MEDS ORDERED: hydrALAZINE 20 MG/1 ML INJ ONE (15:48)
[2021-03-08 16:31] LABS: Creatinine,Urine 14.9 mg/dL (0.1-20.0); Protein/Creatinine Ratio,Urine 0.27
[2021-03-08] MEDS ORDERED: hydrALAZINE 20 MG/1 ML INJ IV ONE (16:50)
--- NOTE | 2021-03-08 18:24 | Consultation ---
Past History Past Medical History: other (see HPI) Past Surgical History: other (see HPI) CHECKER History: other (see HPI) Family/Genetic History: other (see HPI) - Obstetrical History : 3 Medications and Allergies Allergies Allergy/AdvReac Type Severity Reaction Status Date / Time No Known Allergies Allergy Unverified 03/06/21 20:34 Active Meds: Active Medications Acetaminophen (Acetaminophen 500 Mg Tab) 1,000 mg PO Q6H PRN PRN Reason: Pain MILD(1-3)/Fever >100.5/WELLS Al Hydrox/Mg Hydrox/Simethicone (Alum-Mag Hydroxide-Simethicone 300-256-60ul/5ml Oral Liqd 30 Ml) 30 ml PO Q4H PRN PRN Reason: Indigestion Docusate Sodium (Docusate Sodium 100 Mg Cap) 100 mg PO Q12H PRN PRN Reason: Constipation Famotidine (Famotidine 20 Mg Tab) 20 mg PO BID [facility] Lactated Ringer's (Lactated Ringers) 1,000 mls @ 125 mls/hr IV DIRECT [facility] Last Admin: 03/07/21 11:56 Dose: 125 mls/hr Labetalol HCl (Labetalol 200 Mg Tab) 200 mg PO BID [facility] Last Admin: 03/08/21 09:40 Dose: 200 mg Multivitamins/Iron/Calcium ( Dwq53-Fb Fumarate-Folic Acid Vit Tab) 1 each PO QDAY [facility] Last Admin: 03/08/21 15:16 Dose: Not Given Ondansetron HCl (Ondansetron 4 Mg/2 Ml Inj) 4 mg IV Q6H PRN PRN Reason: Nausea And Vomiting Sodium Chloride (Sodium Chloride Nasal [place] 44ml) 2 spray NS Q4H PRN PRN Reason: Congestion - Vital Signs Vital signs: Vital Signs Pulse BP 100 H 153/92 03/06/21 20:17 03/06/21 20:17 Temp Pulse Resp BP Pulse Ox 98.2 F 96 H 20 138/73 99 03/08/21 07:46 03/08/21 18:10 03/06/21 23:32 03/08/21 16:46 03/08/21 18:10 Results Result Diagrams: 03/06/21 21:30 03/06/21 21:30 Abnormal lab results 03/08/21 03/08/21 Range/Units 01:29 16:00 Ur Total Protein 24 Hr 320.00 H (2-200) mg/dL Urine Total Protein < 4 L (5-11.8) mg/dL All other labs normal. Assessment and Plan [facility] pt seen Full consult to follow FW
--- NOTE | 2021-03-08 20:26 | Event Note ---
Date: 03/08/21 Patient to have 1hGTT in the morning and then will start steroids for lung maturity.
[2021-03-08] MEDS: FAMOTIDINE 20 MG TAB PO SCH (21:47)
--- NOTE | 2021-03-09 07:57 | Progress Note ---
Assessment and Plan A: 35 y.o. @ 32.3 wks, Pre elcampsia superimposed on cHTN, insufficient care, previous . - Patient Problems (1) 32 weeks gestation of Current Visit: Yes Status: Acute Plan to address problem: Patient to have 1 hr gtt this AM. After 1 hr gtt, steroids to be administered. Continue to monitor status through EFM. S/p NICU consult. (2) Pre-eclampsia superimposed on chronic hypertension Current Visit: Yes Status: Acute Plan to address problem: Continue with monitoring blood pressures. Continue with monitoring for s/sx of pre eclampsia. Continue with Labetalol 200mg BID. [facility] recommendations: - Delivery @ 34 weeks - CBC & CMP 1-2 times weekly to screen for end organ damage: WNL on 03/06, ordered for today 03/09. - Twice weekly BPP: Last done on 03/06 (09/24), ordered for today 03/09 - Initiate magnesium at time of delivery. Continue 24 hours - Strict I&O to monitor for fluid overload - Immediately delivery warranted for uncontrolled hypertension, eclampsia, pulmonary edema, platelet count <100K, new onset of cerebral symptoms, PTL, NRFHT, HELLP, ARF, oliguria, non-reassuring or testing - SCDs for DVT prophylaxis - Continue NST BID. Continuous EFM advised if HTN becomes uncontrolled, and IV medication needed. - IV hydralazine PRN, for SBP greater than or equal to 160 or DBP greater than or equal to 110 - Continue Labetalol and titrate to maintain BP 120-160/80-105 (3) Previous section Current Visit: Yes Status: Acute (4) Non compliance with medical treatment Current Visit: Yes Status: Acute Plan to address problem: Will need case management after delivery. Subjective - Subjective Date of service: 03/09/21 Principal diagnosis: IUP @ 32.3 wks; pre eclampsia superimposed cHTN, insufficient care Interval history: Pt denies WELLS, blurred vision spots before her eyes, chest pain, shortness of breath, upper abdominal pain, shortness of breath, ctxs, LOF, and vaginal bleeding. Patient reports: movement normal, no new complaints, no loss of fluid, no vaginal bleeding, no contractions Objective - Vital Signs Vital Signs: Vital Signs - 12hr 03/08/21 03/08/21 03/08/21 20:00 20:01 20:04 Temperature Pulse Rate 93 H 92 H 93 H Blood Pressure 156/88 O2 Sat by Pulse 87 99 Oximetry O2 Sat by Pulse Oximetry [ Bilateral Throughout] 03/08/21 03/08/21 03/08/21 20:06 20:11 20:16 Temperature Pulse Rate 94 H 90 92 H Blood Pressure O2 Sat by Pulse 100 100 100 Oximetry O2 Sat by Pulse Oximetry [ Bilateral Throughout] 03/08/21 03/08/21 03/08/21 20:21 20:26 20:31 Temperature Pulse Rate 92 H 94 H 91 H Blood Pressure O2 Sat by Pulse 99 99 99 Oximetry O2 Sat by Pulse Oximetry [ Bilateral Throughout] 03/08/21 03/08/21 03/08/21 20:36 20:41 20:46 Temperature Pulse Rate 91 H 92 H 103 H Blood Pressure O2 Sat by Pulse 99 99 99 Oximetry O2 Sat by Pulse Oximetry [ Bilateral Throughout] 03/08/21 03/08/21 03/08/21 20:51 20:56 21:01 Temperature Pulse Rate 90 94 H 102 H Blood Pressure 169/93 O2 Sat by Pulse 99 100 100 Oximetry O2 Sat by Pulse Oximetry [ Bilateral Throughout] 03/08/21 03/08/21 03/08/21 21:06 21:11 21:16 Temperature Pulse Rate 96 H 95 H 89 Blood Pressure O2 Sat by Pulse 99 100 100 Oximetry O2 Sat by Pulse Oximetry [ Bilateral Throughout] 03/08/21 03/08/21 03/08/21 21:21 21:26 21:31 Temperature Pulse Rate 92 H 93 H 98 H Blood Pressure O2 Sat by Pulse 100 100 99 Oximetry O2 Sat by Pulse Oximetry [ Bilateral Throughout] 03/08/21 03/08/21 03/08/21 21:47 22:00 23:32 Temperature Pulse Rate 93 H 88 Blood Pressure 169/93 145/88 O2 Sat by Pulse Oximetry O2 Sat by Pulse 97 Oximetry [ Bilateral Throughout] 03/09/21 03/09/21 03/09/21 00:33 01:33 02:33 Temperature Pulse Rate 86 88 96 H Blood Pressure 117/55 147/83 121/73 O2 Sat by Pulse Oximetry O2 Sat by Pulse Oximetry [ Bilateral Throughout] 03/09/21 03/09/21 03/09/21 03:33 04:33 05:39 Temperature Pulse Rate 88 88 83 Blood Pressure 133/80 142/79 152/73 O2 Sat by Pulse Oximetry O2 Sat by Pulse Oximetry [ Bilateral Throughout] 03/09/21 03/09/21 03/09/21 06:33 06:42 07:33 Temperature Pulse Rate 82 86 87 Blood Pressure 161/84 151/79 145/85 O2 Sat by Pulse Oximetry O2 Sat by Pulse Oximetry [ Bilateral Throughout] 03/09/21 07:47 Temperature 98.3 F Pulse Rate Blood Pressure O2 Sat by Pulse Oximetry O2 Sat by Pulse 100 Oximetry [ Bilateral Throughout] - Exam Narrative Exam: Blood pressure today is 140's/80's. Breasts: deferred Cardiovascular: Regular rate Lungs: Normal air movement Abdomen: Present: normal appearance FHR: category 1 Uterine Contraction Monitor Mode: External Uterine Contraction Pattern: Absent Deep Tendon Reflex Grade: Normal +2 - Labs Labs: Abnormal Labs 03/08/21 03/08/21 01:29 16:00 Ur Total Protein 24 Hr 320.00 H Urine Total Protein < 4 L Laboratory Results - last 24 hr 03/08/21 16:00 Urine Creatinine 14.9 Protein/Creatinin Ratio 0.27 Urine Total Protein < 4 L
[2021-03-09] MEDS: PRENATAL VIT27-FE FUMARATE-FOLIC ACID VIT TAB PO SCH (10:34)
[2021-03-09] MEDS ORDERED: hydrALAZINE 20 MG/1 ML INJ ONE (16:49)
--- NOTE | 2021-03-09 17:32 | Event Note ---
Date: 03/09/21 (Gestational Diabetes) Spoke with patient regarding diagnosis after 1 hr gtt. 1 hr gtt resulted as 230. Nutrition consult placed. Diet order adjusted. Also of note blood pressure ranges this afternoon 160-170's/80-90's. Will increase Labetalol 200mg TID. Consulted with Dr. Saez regarding patient status and updates.
[2021-03-09 19:08] LABS: Hematocrit 33.9 % (30.3-42.9); Mean Corpuscular HGB Conc 33 % (30-34); Mean Corpuscular Volume 87 fl (79-97); Platelet Count 238 K/mm3 (140-440); Red Blood Count 3.91 M/mm3 (3.65-5.03)
[2021-03-09 19:30] LABS: Alanine Aminotransferase 8 units/L (7-56); Albumin 3.1 g/dL (3.9-5); Blood Urea Nitrogen 5 mg/dL (7-17); Calcium 8.2 mg/dL (8.4-10.2); Hemolysis Index 2
[2021-03-09 19:32] LABS: BUN/Creatinine Ratio 7
[2021-03-10] MEDS: PRENATAL VIT27-FE FUMARATE-FOLIC ACID VIT TAB PO SCH (09:25)
--- NOTE | 2021-03-10 13:03 | Progress Note ---
Assessment and Plan Pt and s/o sleeping, pt awakened to light touch. reports feeling well w/o complaints. 1. 32+4 weeks gestation - Twice daily NSTs as long as blood pressures are well controlled - BPP ordered for 03/13 - steroids for lung Maturity complete 03/10/2021 2. Superimposed Pre-e on CHTN - inpatient care until delivery, repeat c/s @ 34 weeks - repeat labs q3-4 days - monitor for worsening pre-e or severe features 3. GDM - dx 03/09/2021 - consistent carb diet - Nutrition consult - Accuchecks fasting, AC and HS 4. Non-compliance with care and medical treatment - Patient Problems (1) 32 weeks gestation of Current Visit: Yes Status: Acute (2) Non compliance with medical treatment Current Visit: Yes Status: Acute (3) Previous section Current Visit: Yes Status: Acute (4) Pre-eclampsia superimposed on chronic hypertension Current Visit: Yes Status: Acute Subjective - Subjective Date of service: 03/10/21 Principal diagnosis: IUP @ 32.4 wks; pre eclampsia superimposed cHTN, GDM, limited care Interval history: EDC Confirmation: 05/01/2021 Past History : 3 Term Births: 1 Premature Births: 0 Living Children: 1 Para: 1 Mult. Births: 0 Prev : 1 Aborta: 0 Elect. Ab: 1 Spont. Ab: 0 Ectopics: 0 # 1 Delivery date: 2005 Weeks Gestation: 11 wks labor: no Delivery type: SAB Comments: Bleeding. D&C, no complications # 2 Delivery date: 2013 Weeks Gestation: 37 labor: no Delivery type: Hours of labor: ? Anesthesia type: general Delivery location: [place] Infant Sex: Female weight: ? Comments: Emergency , don't remeber the details. High blood pressure, Was in the ICU. Past Medical History: Reviewed and updated today: Hypertension Past Surgical History: Reviewed and updated today: negative Family History Summary: Mother - Has Family History of Stomach Cancer - Entered On: 11/09/2020 Father - Has Family History of CVA or Stroke - Entered On: 11/09/2020 Social History: Patient is single Smoking History: Patient has never smoked. Risk Factors: Smoked Tobacco Use: Never smoker Smokeless Tobacco Use: Never Counseled to Quit/Cut Down: yes Passive Smoke Exposure: no HIV High Risk Behavior: no Exercise: no Seatbelt Use: preg-litigation counsel % No Dietary Counseling Reason: pn yes PAP Smear History: Date of Last PAP Smear: 11/10/2019 Results: Normal Alcohol Use: no Drug Use: no Past Medical History Anesthesia Complications: negative Anemia: negative Autoimmune Disorder: negative Bleeding Disorder: negative Blood Transfusions: negative Breast Disease: negative Diabetes: negative Heart Disease: negative Hypertension: positive Hepatitis/Liver Disease: negative Kidney Disease/UTI: negative Neurologic/Epilepsy/Migraines: negative Phlebitis/Varicosities: negative Psychiatric: negative Pulmonary Disease/Asthma: negative Thyroid Disease: negative Hospitalizations: negative Surgery (Non-cardiac exercise physiologist): negative Abnormal PAP: negative LINH Exposure: negative Infertility: negative Uterine Anomaly: negative Uterine Surgery (not C/S): negative Other Gynecologic Problems: negative Social Hx: Patient is single Smoking History: Patient has never smoked. Infection History Hx of STD: none HIV Risk Eval: no Hepatitis B Risk Eval: low risk Personal hx. of genital herpes: no Partner hx. of genital herpes: no Rash, Viral, or Febrile illness since last LMP? no Varicella/Chicken Pox Status: Previous Disease TB Risk: no Genetic History Congenital Heart Defect: Mom: no Dad: no Mily Disease: Mom: no Dad: no Thalassemia Mom: no Dad: no Neural Tube Defect Mom: no Dad: no Down's Syndrome Mom: no Dad: no Joce-Sachs Mom: no Dad: no Sickle Cell Disease/Trait Mom: no Dad: no Hemophilia Mom: no Dad: no Muscular Dystrophy Mom: no Dad: no Cystic Fibrosis Mom: no Dad: no Marii Chorea Mom: no Dad: no Mental Retardation Mom: no Dad: no Fragile X Mom: no Dad: no Other Genetic/Chromosomal Disorder Mom: no Dad: no Child w/other defect Mom: no Dad: no Enviromental Exposures Xray Exposure: no Medication, drug, or alcohol use since LMP: no Chemical/Other Exposure: no Exposure to Cat Liter: no Hx of Parvovirus (Fifth Disease): no Occupational Exposure to Children: none Laboratory Results Patient reports: movement normal, no new complaints, no loss of fluid, no vaginal bleeding, no contractions Objective - Vital Signs Vital Signs: Vital Signs - 12hr 03/10/21 03/10/21 03/10/21 02:28 04:28 06:28 Temperature Pulse Rate 83 92 H 88 Respiratory Rate Blood Pressure 160/85 136/65 134/74 Blood Pressure [Left] O2 Sat by Pulse Oximetry O2 Sat by Pulse Oximetry [ Bilateral Throughout] 03/10/21 03/10/21 03/10/21 07:35 07:36 07:37 Temperature Pulse Rate 92 H 89 Respiratory Rate Blood Pressure 135/79 Blood Pressure [Left] O2 Sat by Pulse 98 Oximetry O2 Sat by Pulse 99 Oximetry [ Bilateral Throughout] 03/10/21 03/10/21 03/10/21 07:49 09:24 09:26 Temperature 98.1 F Pulse Rate 92 H 79 85 Respiratory 14 Rate Blood Pressure Blood Pressure 135/79 [Left] O2 Sat by Pulse 99 99 Oximetry O2 Sat by Pulse Oximetry [ Bilateral Throughout] - Exam Breasts: normal Cardiovascular: Regular rate Lungs: Normal air movement Abdomen: Present: normal appearance, soft Uterus: Present: normal, fundal height above umbilicus Uterine Contraction Monitor Mode: Palpation Uterine Tone Measurement Phase: Resting Extremities: normal Deep Tendon Reflex Grade: Normal +2 - Labs Labs: Abnormal Labs 03/08/21 03/08/21 03/09/21 01:29 16:00 18:50 Chloride 108.1 H Carbon Dioxide 19 L BUN 5 L Glucose 182 H Calcium 8.2 L Albumin 3.1 L Ur Total Protein 24 Hr 320.00 H Urine Total Protein < 4 L Laboratory Results - last 24 hr 03/09/21 03/09/21 03/10/21 18:50 18:50 07:30 WBC 8.1 RBC 3.91 Hgb 11.0 Hct 33.9 MCV 87 MCH 28 MCHC 33 RDW 14.0 Plt Count 238 Sodium 140 Potassium 3.9 Chloride 108.1 H Carbon Dioxide 19 L Anion Gap 17 BUN 5 L Creatinine 0.7 Estimated GFR > 60 BUN/Creatinine Ratio 7 Glucose 182 H POC Glucose 98 Calcium 8.2 L Total Bilirubin < 0.20 AST 8 ALT 8 Alkaline Phosphatase 109 Total Protein 6.6 Albumin 3.1 L Albumin/Globulin Ratio 0.9
--- NOTE | 2021-03-10 14:08 | Progress Note ---
Assessment and Plan 1. IUP at 32 4/7 weeks' 2. Superimposed preeclampsia, severe 3. GDM 1. Continue expectant management, serial PIH labs, BPP q 3-4 days, EFW q 2 weeks 2. 3 meal/3 snack ADA diet 3. Accucheks qid 4. Deliver by 34 0/7 weeks' Subjective - Subjective Date of service: 03/10/21 Principal diagnosis: IUP @ 32.4 wks; pre eclampsia superimposed cHTN, GDM, limited care Interval history: Feeling well, fetus active; denied WELLS, scotomata, epigastric pain Patient reports: movement normal, no new complaints, no loss of fluid, no vaginal bleeding, no contractions Objective - Vital Signs Vital Signs: Vital Signs - 12hr 03/10/21 03/10/21 03/10/21 02:28 04:28 06:28 Temperature Pulse Rate 83 92 H 88 Respiratory Rate Blood Pressure 160/85 136/65 134/74 Blood Pressure [Left] O2 Sat by Pulse Oximetry O2 Sat by Pulse Oximetry [ Bilateral Throughout] 03/10/21 03/10/21 03/10/21 07:35 07:36 07:37 Temperature Pulse Rate 92 H 89 Respiratory Rate Blood Pressure 135/79 Blood Pressure [Left] O2 Sat by Pulse 98 Oximetry O2 Sat by Pulse 99 Oximetry [ Bilateral Throughout] 03/10/21 03/10/21 03/10/21 07:49 09:24 09:26 Temperature 98.1 F Pulse Rate 92 H 79 85 Respiratory 14 Rate Blood Pressure Blood Pressure 135/79 [Left] O2 Sat by Pulse 99 99 Oximetry O2 Sat by Pulse Oximetry [ Bilateral Throughout] - Exam Narrative Exam: Abd soft, nontender; FHT's reassuring; RGS 230 mg%; FBS today 98 mg% - Labs Labs: Abnormal Labs 03/08/21 03/08/21 03/09/21 01:29 16:00 18:50 Chloride 108.1 H Carbon Dioxide 19 L BUN 5 L Glucose 182 H Calcium 8.2 L Albumin 3.1 L Ur Total Protein 24 Hr 320.00 H Urine Total Protein < 4 L Laboratory Results - last 24 hr 03/09/21 03/09/21 03/10/21 18:50 18:50 07:30 WBC 8.1 RBC 3.91 Hgb 11.0 Hct 33.9 MCV 87 MCH 28 MCHC 33 RDW 14.0 Plt Count 238 Sodium 140 Potassium 3.9 Chloride 108.1 H Carbon Dioxide 19 L Anion Gap 17 BUN 5 L Creatinine 0.7 Estimated GFR > 60 BUN/Creatinine Ratio 7 Glucose 182 H POC Glucose 98 Calcium 8.2 L Total Bilirubin < 0.20 AST 8 ALT 8 Alkaline Phosphatase 109 Total Protein 6.6 Albumin 3.1 L Albumin/Globulin Ratio 0.9
[2021-03-10] MEDS: FAMOTIDINE 20 MG TAB PO SCH ×2 (18:47→18:51)
[2021-03-10] MEDS: BETAMET ACET/BETAMET NA PH 6 MG/ML INJ 5 ML MDV IM SCH (18:48)
--- NOTE | 2021-03-10 20:00 | Event Note ---
Date: 03/10/21 First dose of steroids given this evening, not yesterday as ordered. Pt will received second dose tomorrow to complete the course. Discussed expectations of elevated blood sugars with patient and nurse.
[2021-03-10] MEDS ORDERED: hydrALAZINE 20 MG/1 ML INJ ONE (22:21)
[2021-03-11] MEDS ORDERED: hydrALAZINE 20 MG/1 ML INJ IV ONE (00:30)
[2021-03-11] MEDS: FAMOTIDINE 20 MG TAB PO SCH ×3 (03:46→14:05)
--- NOTE | 2021-03-11 05:12 | Progress Note ---
Assessment and Plan Pt awake and w/o complaints, reports feeling well. reviewed plan of care for day. All questions addressed. 1. 32+5 weeks gestation - Twice daily NSTs as long as blood pressures are well controlled - BPP ordered for 03/13 - steroids for lung Maturity first dose 03/10, second dose due today 2. Superimposed Pre-e on CHTN - inpatient care until delivery, repeat c/s @ 34 weeks - repeat labs q3-4 days - monitor for worsening pre-e or severe features 3. GDM - dx 03/09/2021 - consistent carb (ADA) diet - Nutrition consult - Accuchecks fasting, AC and HS 4. Non-compliance with care and medical treatment - Patient Problems (1) 32 weeks gestation of Current Visit: Yes Status: Acute (2) Non compliance with medical treatment Current Visit: Yes Status: Acute (3) Previous section Current Visit: Yes Status: Acute (4) Pre-eclampsia superimposed on chronic hypertension Current Visit: Yes Status: Acute Subjective - Subjective Date of service: 03/11/21 Principal diagnosis: IUP @ 32.5 wks; pre eclampsia superimposed cHTN, GDM, limited care Interval history: EDC Confirmation: 05/01/2021 Past History : 3 Term Births: 1 Premature Births: 0 Living Children: 1 Para: 1 Mult. Births: 0 Prev : 1 Aborta: 0 Elect. Ab: 1 Spont. Ab: 0 Ectopics: 0 # 1 Delivery date: 2005 Weeks Gestation: 11 wks labor: no Delivery type: SAB Comments: Bleeding. D&C, no complications # 2 Delivery date: 2013 Weeks Gestation: 37 labor: no Delivery type: Hours of labor: ? Anesthesia type: general Delivery location: [place] Sex: Female weight: ? Comments: Emergency , don't remeber the details. High blood pressure, Was in the ICU. Past Medical History: Reviewed and updated today: Hypertension Past Surgical History: Reviewed and updated today: negative Family History Summary: Mother - Has Family History of Stomach Cancer - Entered On: 11/09/2020 Father - Has Family History of CVA or Stroke - Entered On: 11/09/2020 Social History: Patient is single Smoking History: Patient has never smoked. Risk Factors: Smoked Tobacco Use: Never smoker Smokeless Tobacco Use: Never Counseled to Quit/Cut Down: yes Passive Smoke Exposure: no HIV High Risk Behavior: no Exercise: no Seatbelt Use: preg-staff counselor % No Dietary Counseling Reason: pn yes PAP Smear History: Date of Last PAP Smear: 11/10/2019 Results: Normal Alcohol Use: no Drug Use: no Past Medical History Anesthesia Complications: negative Anemia: negative Autoimmune Disorder: negative Bleeding Disorder: negative Blood Transfusions: negative Breast Disease: negative Diabetes: negative Heart Disease: negative Hypertension: positive Hepatitis/Liver Disease: negative Kidney Disease/UTI: negative Neurologic/Epilepsy/Migraines: negative Phlebitis/Varicosities: negative Psychiatric: negative Pulmonary Disease/Asthma: negative Thyroid Disease: negative Hospitalizations: negative Surgery (Non-director non profit): negative Abnormal PAP: negative LINH Exposure: negative Infertility: negative Uterine Anomaly: negative Uterine Surgery (not C/S): negative Other Gynecologic Problems: negative Social Hx: Patient is single Smoking History: Patient has never smoked. Infection History Hx of STD: none HIV Risk Eval: no Hepatitis B Risk Eval: low risk Personal hx. of genital herpes: no Partner hx. of genital herpes: no Rash, Viral, or Febrile illness since last LMP? no Varicella/Chicken Pox Status: Previous Disease TB Risk: no Genetic History Congenital Heart Defect: Mom: no Dad: no Mily Disease: Mom: no Dad: no Thalassemia Mom: no Dad: no Neural Tube Defect Mom: no Dad: no Down's Syndrome Mom: no Dad: no Joce-Sachs Mom: no Dad: no Sickle Cell Disease/Trait Mom: no Dad: no Hemophilia Mom: no Dad: no Muscular Dystrophy Mom: no Dad: no Cystic Fibrosis Mom: no Dad: no [place] Chorea Mom: no Dad: no Mental Retardation Mom: no Dad: no Fragile X Mom: no Dad: no Other Genetic/Chromosomal Disorder Mom: no Dad: no Child w/other defect Mom: no Dad: no Enviromental Exposures Xray Exposure: no Medication, drug, or alcohol use since LMP: no Chemical/Other Exposure: no Exposure to Cat Liter: no Hx of Parvovirus (Fifth Disease): no Occupational Exposure to Children: none Laboratory Results Patient reports: movement normal, no new complaints, no loss of fluid, no vaginal bleeding, no contractions Objective - Vital Signs Vital Signs: Vital Signs - 12hr 03/10/21 03/10/21 03/10/21 18:18 18:19 18:22 Pulse Rate 91 H 85 79 Blood Pressure 196/103 163/81 O2 Sat by Pulse 94 Oximetry O2 Sat by Pulse Oximetry [ Bilateral Throughout] 03/10/21 03/10/21 03/10/21 18:23 18:28 18:29 Pulse Rate 85 92 H 91 H Blood Pressure O2 Sat by Pulse 100 91 97 Oximetry O2 Sat by Pulse Oximetry [ Bilateral Throughout] 03/10/21 03/10/21 03/10/21 18:34 18:37 18:38 Pulse Rate 87 89 60 Blood Pressure 168/99 O2 Sat by Pulse 99 89 Oximetry O2 Sat by Pulse Oximetry [ Bilateral Throughout] 03/10/21 03/10/21 03/10/21 18:39 18:41 20:10 Pulse Rate 79 94 H 83 Blood Pressure 159/86 175/98 O2 Sat by Pulse 84 92 Oximetry O2 Sat by Pulse Oximetry [ Bilateral Throughout] 03/10/21 03/10/21 03/10/21 20:12 20:15 20:20 Pulse Rate 85 93 H 85 Blood Pressure 175/98 O2 Sat by Pulse 98 96 Oximetry O2 Sat by Pulse Oximetry [ Bilateral Throughout] 03/10/21 03/10/21 03/10/21 20:25 20:28 20:30 Pulse Rate 80 88 68 Blood Pressure 160/82 O2 Sat by Pulse 96 91 91 Oximetry O2 Sat by Pulse Oximetry [ Bilateral Throughout] 03/10/21 03/10/21 03/10/21 20:35 20:40 20:45 Pulse Rate 77 83 87 Blood Pressure 164/92 O2 Sat by Pulse 99 97 100 Oximetry O2 Sat by Pulse Oximetry [ Bilateral Throughout] 03/10/21 03/10/21 03/10/21 20:50 20:55 21:00 Pulse Rate 80 81 98 H Blood Pressure 173/93 O2 Sat by Pulse 98 97 99 Oximetry O2 Sat by Pulse Oximetry [ Bilateral Throughout] 03/10/21 03/10/21 03/10/21 21:05 21:10 21:12 Pulse Rate 75 80 85 Blood Pressure O2 Sat by Pulse 98 98 93 Oximetry O2 Sat by Pulse Oximetry [ Bilateral Throughout] 03/10/21 03/10/21 03/10/21 21:15 21:20 21:25 Pulse Rate 85 82 83 Blood Pressure 160/95 O2 Sat by Pulse 99 98 98 Oximetry O2 Sat by Pulse Oximetry [ Bilateral Throughout] 03/10/21 03/10/21 03/10/21 21:30 21:57 22:00 Pulse Rate 95 H 76 83 Blood Pressure 161/95 197/96 163/84 O2 Sat by Pulse 99 Oximetry O2 Sat by Pulse Oximetry [ Bilateral Throughout] 03/10/21 03/10/21 03/10/21 22:03 22:06 22:25 Pulse Rate 85 86 73 Blood Pressure 170/88 181/95 181/84 O2 Sat by Pulse Oximetry O2 Sat by Pulse Oximetry [ Bilateral Throughout] 03/10/21 03/10/21 03/10/21 22:26 22:31 22:37 Pulse Rate 73 80 89 Blood Pressure 181/84 169/76 133/67 O2 Sat by Pulse Oximetry O2 Sat by Pulse Oximetry [ Bilateral Throughout] 03/10/21 03/10/21 03/10/21 22:42 22:47 22:52 Pulse Rate 90 86 90 Blood Pressure 134/68 135/76 134/69 O2 Sat by Pulse Oximetry O2 Sat by Pulse Oximetry [ Bilateral Throughout] 03/10/21 03/10/21 03/11/21 22:57 23:02 01:40 Pulse Rate 88 87 Blood Pressure 136/69 135/63 O2 Sat by Pulse Oximetry O2 Sat by Pulse 98 Oximetry [ Bilateral Throughout] 03/11/21 03/11/21 01:57 03:58 Pulse Rate 103 H 102 H Blood Pressure 127/62 130/75 O2 Sat by Pulse Oximetry O2 Sat by Pulse Oximetry [ Bilateral Throughout] - Labs Labs: Abnormal Labs 03/08/21 03/08/21 03/09/21 01:29 16:00 18:50 Chloride 108.1 H Carbon Dioxide 19 L BUN 5 L Glucose 182 H POC Glucose Calcium 8.2 L Albumin 3.1 L Ur Total Protein 24 Hr 320.00 H Urine Total Protein < 4 L 03/10/21 03/10/21 14:14 18:25 Chloride Carbon Dioxide BUN Glucose POC Glucose 122 H 130 H Calcium Albumin Ur Total Protein 24 Hr Urine Total Protein Laboratory Results - last 24 hr 03/10/21 03/10/21 03/10/21 07:30 14:14 18:25 POC Glucose 98 122 H 130 H
--- NOTE | 2021-03-11 09:35 | Event Note ---
Date: 03/11/21 Agree with paper cup machine tender exam and note. Will con't current management. Provider at bedside with pt. Questions were encouraged. Pt states she has no questions at this time and is resting quietly in bed.
[2021-03-11] MEDS: PRENATAL VIT27-FE FUMARATE-FOLIC ACID VIT TAB PO SCH (10:23)
[2021-03-11] MEDS: BETAMET ACET/BETAMET NA PH 6 MG/ML INJ 5 ML MDV IM SCH (18:48)
[2021-03-12] MEDS: PRENATAL VIT27-FE FUMARATE-FOLIC ACID VIT TAB PO SCH (08:47)
--- NOTE | 2021-03-12 11:14 | Progress Note ---
Assessment and Plan BPs with elevations overnight. Pt denies WELLS, vision changes, and abdominal pain; reports +FM. POC d/w pt. All questions and concerns addressed. Pt verbalizes understanding and agrees to POC. AMFM to consult this am. 1. 32+6 weeks gestation - Twice daily NSTs as long as blood pressures are well controlled - BPP ordered for 03/13 - steroids completed for lung Maturity (03/10 & 03/11) 2. Superimposed Pre-e on CHTN - Labetalol 200mg TID - inpatient care until delivery, repeat c/s @ 34 weeks - repeat labs q3-4 days ordered next for 03/13 - monitor for worsening pre-e or severe features 3. GDM - dx 03/09/2021 - consistent carb (ADA) diet - Nutrition consult - Accuchecks fasting, AC and HS 4. Non-compliance with care and medical treatment - Patient Problems (1) 32 weeks gestation of Current Visit: Yes Status: Acute (2) Gestational diabetes mellitus (GDM) Current Visit: Yes Status: Acute (3) Non compliance with medical treatment Current Visit: Yes Status: Acute (4) Pre-eclampsia superimposed on chronic hypertension Current Visit: Yes Status: Acute (5) Previous section Current Visit: Yes Status: Acute Subjective - Subjective Date of service: 03/12/21 Principal diagnosis: IUP @ 32.6 wks; pre eclampsia superimposed cHTN, GDM, limited care Patient reports: movement normal, no new complaints, no loss of fluid, no vaginal bleeding, no contractions Objective - Vital Signs Vital Signs: Vital Signs - 12hr 03/12/21 03/12/21 03/12/21 00:00 00:29 00:31 Temperature 98.7 F Pulse Rate 75 88 Respiratory 16 Rate Blood Pressure 178/85 163/78 O2 Sat by Pulse Oximetry O2 Sat by Pulse Oximetry [ Bilateral Throughout] 03/12/21 03/12/21 03/12/21 00:33 00:38 01:19 Temperature Pulse Rate 83 88 96 H Respiratory Rate Blood Pressure 161/72 163/82 131/74 O2 Sat by Pulse Oximetry O2 Sat by Pulse Oximetry [ Bilateral Throughout] 03/12/21 03/12/21 03/12/21 03:19 04:55 05:19 Temperature 98.7 F Pulse Rate 80 75 Respiratory Rate Blood Pressure 138/76 132/70 O2 Sat by Pulse Oximetry O2 Sat by Pulse Oximetry [ Bilateral Throughout] 03/12/21 03/12/21 03/12/21 07:29 07:35 07:36 Temperature 98.3 F Pulse Rate 81 Respiratory 19 Rate Blood Pressure 141/73 O2 Sat by Pulse Oximetry O2 Sat by Pulse 98 Oximetry [ Bilateral Throughout] 03/12/21 03/12/21 07:39 09:41 Temperature Pulse Rate 86 87 Respiratory Rate Blood Pressure 118/61 O2 Sat by Pulse 98 Oximetry O2 Sat by Pulse Oximetry [ Bilateral Throughout] - Exam Breasts: deferred Cardiovascular: Regular rate Lungs: Normal air movement Abdomen: Present: normal appearance, soft. Absent: distention, tenderness FHR comments: RN at bedside during CNM exam, placing external monitors and giving am meds Uterine Contraction Monitor Mode: Palpation Uterine Contraction Pattern: Absent Uterine Tone Measurement Phase: Resting Extremities: normal - Labs Labs: Abnormal Labs 03/08/21 03/08/21 03/09/21 01:29 16:00 18:50 Chloride 108.1 H Carbon Dioxide 19 L BUN 5 L Glucose 182 H POC Glucose Calcium 8.2 L Albumin 3.1 L Ur Total Protein 24 Hr 320.00 H Urine Total Protein < 4 L 03/10/21 03/10/21 03/11/21 14:14 18:25 06:12 Chloride Carbon Dioxide BUN Glucose POC Glucose 122 H 130 H 133 H Calcium Albumin Ur Total Protein 24 Hr Urine Total Protein 03/11/21 03/11/21 03/12/21 13:17 21:33 07:35 Chloride Carbon Dioxide BUN Glucose POC Glucose 148 H 182 H 126 H Calcium Albumin Ur Total Protein 24 Hr Urine Total Protein 03/12/21 10:27 Chloride Carbon Dioxide BUN Glucose POC Glucose 130 H Calcium Albumin Ur Total Protein 24 Hr Urine Total Protein Laboratory Results - last 24 hr 03/11/21 03/11/21 03/12/21 13:17 21:33 07:35 POC Glucose 148 H 182 H 126 H 03/12/21 10:27 POC Glucose 130 H
[2021-03-12] MEDS: FAMOTIDINE 20 MG TAB PO SCH (11:54)
--- NOTE | 2021-03-12 13:26 | Progress Note ---
Assessment and Plan 1. IUP at 32 4/7 weeks' 2. Superimposed preeclampsia, severe 3. GDM 1. Continue expectant management, serial PIH labs, BPP q 3-4 days, EFW q 2 weeks 2. 3 meal/3 snack ADA diet 3. Accucheks qid 4. Start sliding scale insulin, moderate dose; increase to high dose if sugars remain elevated 5. Deliver by 34 0/7 weeks' Subjective - Subjective Date of service: 03/12/21 Principal diagnosis: IUP @ 32.6 wks; pre eclampsia superimposed cHTN, GDM, limited care Interval history: Feeling well, fetus active; denied WELLS, scotomata, epigastric pain Patient reports: movement normal, no new complaints, no loss of fluid, no vaginal bleeding, no contractions Objective - Vital Signs Vital Signs: Vital Signs - 12hr 03/12/21 03/12/21 03/12/21 03:19 04:55 05:19 Temperature 98.7 F Pulse Rate 80 75 Respiratory Rate Blood Pressure 138/76 132/70 O2 Sat by Pulse Oximetry O2 Sat by Pulse Oximetry [ Bilateral Throughout] 03/12/21 03/12/21 03/12/21 07:29 07:35 07:36 Temperature 98.3 F Pulse Rate 81 Respiratory 19 Rate Blood Pressure 141/73 O2 Sat by Pulse Oximetry O2 Sat by Pulse 98 Oximetry [ Bilateral Throughout] 03/12/21 03/12/21 03/12/21 07:39 09:41 11:19 Temperature Pulse Rate 86 87 93 H Respiratory Rate Blood Pressure 118/61 140/81 O2 Sat by Pulse 98 Oximetry O2 Sat by Pulse Oximetry [ Bilateral Throughout] - Exam Narrative Exam: Abd soft, nontender; FHT's reassuring; RGS 230 mg%; FBS today 98 mg%; Accucheks reviewed; all elevated - Labs Labs: Abnormal Labs 03/08/21 03/08/21 03/09/21 01:29 16:00 18:50 Chloride 108.1 H Carbon Dioxide 19 L BUN 5 L Glucose 182 H POC Glucose Calcium 8.2 L Albumin 3.1 L Ur Total Protein 24 Hr 320.00 H Urine Total Protein < 4 L 03/10/21 03/10/21 03/11/21 14:14 18:25 06:12 Chloride Carbon Dioxide BUN Glucose POC Glucose 122 H 130 H 133 H Calcium Albumin Ur Total Protein 24 Hr Urine Total Protein 03/11/21 03/11/21 03/12/21 13:17 21:33 07:35 Chloride Carbon Dioxide BUN Glucose POC Glucose 148 H 182 H 126 H Calcium Albumin Ur Total Protein 24 Hr Urine Total Protein 03/12/21 10:27 Chloride Carbon Dioxide BUN Glucose POC Glucose 130 H Calcium Albumin Ur Total Protein 24 Hr Urine Total Protein Laboratory Results - last 24 hr 03/11/21 03/11/21 03/12/21 13:17 21:33 07:35 POC Glucose 148 H 182 H 126 H 03/12/21 10:27 POC Glucose 130 H
[2021-03-12] MEDS ORDERED: DEXTROSE 50% IN WATER (25GM) 50 ML SYRINGE IV PRN (14:01)
--- NOTE | 2021-03-12 14:06 | Event Note ---
Date: 03/12/21 POC d/w Dr. Figueroa at nurses station. Orders placed for moderate dosing SS insulin qACHS per Dr. Figueroa verbal order. Dr. Saez made aware.
[2021-03-12] MEDS ORDERED: DEXTROSE 10% *Hypoglycemia IV PRN (14:08)
--- NOTE | 2021-03-13 07:55 | Ultrasound Report ---
Biophysical profile Ultrasound HISTORY: Well Being, Pre E. TECHNIQUE: Grayscale and color imaging performed. COMPARISON: 03/06/2021 FINDINGS: Fetus received a score of 2 out of 2 for breathing, movement, posture/tone, and WILL. Total score was 8 out of 8. Heart rate during the exam was 149 bpm. Cephalic presentation. IMPRESSION: Normal biophysical profile. Signer Name: Sean Miranda MD Signed: 03/13/2021 7:51 AM Workstation Name: [id number]
--- NOTE | 2021-03-13 08:05 | Progress Note ---
Assessment and Plan pt resting, no concerns. denies WELLS/visual changes/epigastric pain. 1. 33+0 weeks gestation - Twice daily NSTs as long as blood pressures are well controlled - BPP ordered for 03/13 - steroids for lung Maturity, completed 03/11 2. Superimposed Pre-e on CHTN - inpatient care until delivery, repeat c/s @ 34 weeks - repeat labs q3-4 days - monitor for worsening pre-e or severe features 3. GDM - dx 03/09/2021 - consistent carb (ADA) diet - Nutrition consult - Accuchecks fasting, AC and HS -Start sliding scale insulin, moderate dose; increase to high dose if sugars remain elevated 4. Non-compliance with care and medical treatment - Patient Problems (1) Non compliance with medical treatment Current Visit: Yes Status: Acute (2) Previous section Current Visit: Yes Status: Acute (3) Pre-eclampsia superimposed on chronic hypertension Current Visit: Yes Status: Acute (4) 33 weeks gestation of Current Visit: Yes Status: Acute (5) Gestational diabetes mellitus (GDM) Current Visit: Yes Status: Acute Qualifiers: Gestational diabetes mellitus control: insulin-controlled Trimester: third trimester Qualified Code(s): O24.414 - Gestational diabetes mellitus in , insulin controlled Subjective - Subjective Date of service: 03/13/21 Principal diagnosis: IUP @ 33+0 wks; pre eclampsia superimposed cHTN, GDM- insulin, limited care Interval history: EDC Confirmation: 05/01/2021 Past History : 3 Term Births: 1 Premature Births: 0 Living Children: 1 Para: 1 Mult. Births: 0 Prev : 1 Aborta: 0 Elect. Ab: 1 Spont. Ab: 0 Ectopics: 0 # 1 Delivery date: 2005 Weeks Gestation: 11 wks labor: no Delivery type: SAB Comments: Bleeding. D&C, no complications # 2 Delivery date: 2013 Weeks Gestation: 37 labor: no Delivery type: Hours of labor: ? Anesthesia type: general Delivery location: [place] Inf[place] Sex: Female weight: ? Comments: Emergency , don't remeber the details. High blood pressure, Was in the ICU. Past Medical History: Reviewed and updated today: Hypertension Past Surgical History: Reviewed and updated today: negative Family History Summary: Mother - Has Family History of Stomach Cancer - Entered On: 11/09/2020 Father - Has Family History of CVA or Stroke - Entered On: 11/09/2020 Social History: Patient is single Smoking History: Patient has never smoked. Risk Factors: Smoked Tobacco Use: Never smoker Smokeless Tobacco Use: Never Counseled to Quit/Cut Down: yes Passive Smoke Exposure: no HIV High Risk Behavior: no Exercise: no Seatbelt Use: preg-disability counselor % No Dietary Counseling Reason: pn yes PAP Smear History: Date of Last PAP Smear: 11/10/2019 Results: Normal Alcohol Use: no Drug Use: no Past Medical History Anesthesia Complications: negative Anemia: negative Autoimmune Disorder: negative Bleeding Disorder: negative Blood Transfusions: negative Breast Disease: negative Diabetes: negative Heart Disease: negative Hypertension: positive Hepatitis/Liver Disease: negative Kidney Disease/UTI: negative Neurologic/Epilepsy/Migraines: negative Phlebitis/Varicosities: negative Psychiatric: negative Pulmonary Disease/Asthma: negative Thyroid Disease: negative Hospitalizations: negative Surgery (Non-car wash attendant automatic): negative Abnormal PAP: negative LINH Exposure: negative Infertility: negative Uterine Anomaly: negative Uterine Surgery (not C/S): negative Other Gynecologic Problems: negative Social Hx: Patient is single Smoking History: Patient has never smoked. Infection History Hx of STD: none HIV Risk Eval: no Hepatitis B Risk Eval: low risk Personal hx. of genital herpes: no Partner hx. of genital herpes: no Rash, Viral, or Febrile illness since last LMP? no Varicella/Chicken Pox Status: Previous Disease TB Risk: no Genetic History Congenital Heart Defect: Mom: no Dad: no Mily Disease: Mom: no Dad: no Thalassemia Mom: no Dad: no Neural Tube Defect Mom: no Dad: no Down's Syndrome Mom: no Dad: no Joce-Sachs Mom: no Dad: no Sickle Cell Disease/Trait Mom: no Dad: no Hemophilia Mom: no Dad: no Muscular Dystrophy Mom: no Dad: no Cystic Fibrosis Mom: no Dad: no [place] Chorea Mom: no Dad: no Mental Retardation Mom: no Dad: no Fragile X Mom: no Dad: no Other Genetic/Chromosomal Disorder Mom: no Dad: no Child w/other defect Mom: no Dad: no Enviromental Exposures Xray Exposure: no Medication, drug, or alcohol use since LMP: no Chemical/Other Exposure: no Exposure to Cat Liter: no Hx of Parvovirus (Fifth Disease): no Occupational Exposure to Children: none Laboratory Results Patient reports: movement normal, no new complaints, no loss of fluid, no vaginal bleeding, no contractions Objective - Vital Signs Vital Signs: Vital Signs - 12hr 03/12/21 03/12/21 03/12/21 20:08 20:13 20:18 Temperature Pulse Rate 88 90 83 Blood Pressure O2 Sat by Pulse 99 100 98 Oximetry 03/12/21 03/12/21 03/12/21 20:23 20:28 20:33 Temperature Pulse Rate 89 87 81 Blood Pressure O2 Sat by Pulse 99 98 99 Oximetry 03/12/21 03/12/21 03/12/21 20:38 20:43 20:48 Temperature Pulse Rate 82 86 80 Blood Pressure O2 Sat by Pulse 99 99 98 Oximetry 03/12/21 03/12/21 03/12/21 20:53 20:57 21:02 Temperature Pulse Rate 81 63 99 H Blood Pressure O2 Sat by Pulse 98 85 88 Oximetry 03/12/21 03/12/21 03/12/21 21:20 21:26 21:57 Temperature Pulse Rate 82 98 H Blood Pressure 137/75 137/75 O2 Sat by Pulse 86 Oximetry 03/12/21 03/12/21 03/13/21 21:58 23:20 01:20 Temperature Pulse Rate 76 83 Blood Pressure 134/69 162/87 O2 Sat by Pulse 84 Oximetry 03/13/21 03/13/21 03/13/21 01:37 03:00 03:02 Temperature 98.5 F Pulse Rate 81 72 Blood Pressure 143/73 129/69 O2 Sat by Pulse Oximetry 03/13/21 03/13/21 05:04 07:04 Temperature Pulse Rate 82 81 Blood Pressure 140/68 151/79 O2 Sat by Pulse Oximetry - Exam Breasts: normal Cardiovascular: Regular rate Lungs: Normal air movement Abdomen: Present: normal appearance, soft Vulva: both: normal Uterus: Present: normal, fundal height above umbilicus FHR: auscultation normal Uterine Contraction Pattern: Absent Uterine Tone Measurement Phase: Resting Extremities: normal Deep Tendon Reflex Grade: Normal +2 - Labs Labs: Abnormal Labs 03/08/21 03/08/21 03/09/21 01:29 16:00 18:50 Chloride 108.1 H Carbon Dioxide 19 L BUN 5 L Glucose 182 H POC Glucose Calcium 8.2 L Albumin 3.1 L Ur Total Protein 24 Hr 320.00 H Urine Total Protein < 4 L 03/10/21 03/10/21 03/11/21 14:14 18:25 06:12 Chloride Carbon Dioxide BUN Glucose POC Glucose 122 H 130 H 133 H Calcium Albumin Ur Total Protein 24 Hr Urine Total Protein 03/11/21 03/11/21 03/12/21 13:17 21:33 07:35 Chloride Carbon Dioxide BUN Glucose POC Glucose 148 H 182 H 126 H Calcium Albumin Ur Total Protein 24 Hr Urine Total Protein 03/12/21 03/12/21 03/12/21 10:27 16:12 20:28 Chloride Carbon Dioxide BUN Glucose POC Glucose 130 H 109 H 135 H Calcium Albumin Ur Total Protein 24 Hr Urine Total Protein Laboratory Results - last 24 hr 03/12/21 03/12/21 03/12/21 10:27 16:12 20:28 POC Glucose 130 H 109 H 135 H
--- NOTE | 2021-03-13 09:46 | Ultrasound Report ---
ULTRASOUND OBSTETRIC LIMITED ULTRASOUND BIOPHYSICAL PROFILE INDICATION / CLINICAL INFORMATION: Evaluate well-being, preeclampsia. COMPARISON: OB ultrasound with biophysical profile performed on 03/09/2021. FINDINGS: BREATHING MOVEMENT = 0 GROSS BODY MOVEMENT = 2 TONE = 2 QUALITATIVE AMNIOTIC FLUID VOLUME = 2 TOTAL BIOPHYSICAL SCORE = 6/8 AMNIOTIC FLUID INDEX (cm) = not measured PRESENTATION: Cephalic. HEART RATE (beats per minute): 147 ADDITIONAL FINDINGS: None. IMPRESSION: 1. Biophysical Score = 6/8 Signer Name: Ron Olivarez MD Signed: 03/13/2021 9:41 AM Workstation Name: [id number]
[2021-03-13 11:50] LABS: Hematocrit 32.4 % (30.3-42.9); Hemoglobin 10.6 gm/dl (10.1-14.3); Mean Corpuscular HGB Conc 33 % (30-34); Mean Corpuscular Volume 87 fl (79-97); Platelet Count 242 K/mm3 (140-440); Red Blood Count 3.73 M/mm3 (3.65-5.03); Red Cell Distribution Width 14.2 % (13.2-15.2)
--- NOTE | 2021-03-13 12:04 | Consultation ---
History of Present Illness Consult date: 03/13/21 Reason for consult: prematurity History of present illness: INDICATIONS FOR CONSULT: Potential premature delivery Maternal Hx: 35 yo female GA: 33 and 0/7 wk care with: Non-compliance with care and medical treatment Hx: Super-imposed pre-eclampsia. Limited care, GDM - insulin dependent. PMHx: CHTN, Obesity Family Hx: Noncontributory. Social Hx: ETOH: No, Illegal Drugs: Yes, former marijuana. Smoking: No meds: Betamethasone - completed course 03/11, labetolol, insulin, PNV with Fe. Labs, if available: Blood type: O+ AntiBody screen: Negative HBsAg: Negative RPR: Neg Rubella: Immune GBS: Unknown HIV: NR CH/GC: Unknown Consulted to see this mom who is at 33 weeks with mother (father in the room however was sleeping during consult). Mother was admitted at 32 weeks to [facility] from office where she was seen for an appointment. She was noted to have an elevated blood pressure. Of note, patient has not been compliant with keeping appointments, she has only had 3 visits. Pt has been seen by [facility], last visit 02/26/2021 - efw 18th%. She was admitted for b/p control and to evaluate for superimposed pre-e on existing htn. Current plan is for repeat c- section at 34 weeks. During the consult with this patient she was advised of all the standard procedures done to babies born at 33 weeks gestation including admission to NICU. She was also advised of all the possible complications associated with premature . These complications include, but are not limited to IVH, RDS, CV Instability, Sepsis, Anemia of prematurity, Feeding problems, NEC, ROP, , etc. All her questions and concerns were addressed, and she was advised to follow the recommendations from her physicians. She was also encouraged to call for us in case of more questions. Thanks for this consultation. TOTAL TIME SPENT DURING THIS CONSULTATION WAS: 30 minutes. [place] Documentation - Maternal Info Infant Delivery Method: Repeat Section - information: Delivery Date 03/09/21 Delivery Time 13:51 Gestational Age 39 Birthweight 2.81 kg Height 1.65 m Medications and Allergies Allergies Allergy/AdvReac Type Severity Reaction Status Date / Time No Known Allergies Allergy Unverified 03/06/21 20:34 Active Meds: Active Medications Acetaminophen (Acetaminophen 500 Mg Tab) 1,000 mg PO Q6H PRN PRN Reason: Pain MILD(1-3)/Fever >100.5/WELLS Last Admin: 03/10/21 22:58 Dose: 1,000 mg Al Hydrox/Mg Hydrox/Simethicone (Alum-Mag Hydroxide-Simethicone [phone]/5ml Oral Liqd 30 Ml) 30 ml PO Q4H PRN PRN Reason: Indigestion Betamethasone Acet/Betameth SodPhos (Betamet Acet/Betamet Na Ph 6 Mg/Ml Inj 5 Ml Mdv) 12 mg IM Q24HR [facility] Last Admin: 03/11/21 18:48 Dose: 12 mg Dextrose (Dextrose 10% *Hypoglycemia) 0 ml IV PRN PRN PRN Reason: Hypoglycemia Docusate Sodium (Docusate Sodium 100 Mg Cap) 100 mg PO Q12H PRN PRN Reason: Constipation Famotidine (Famotidine 20 Mg Tab) 20 mg PO BID [facility] Last Admin: 03/12/21 11:54 Dose: 20 mg Lactated Ringer's (Lactated Ringers) 1,000 mls @ 125 mls/hr IV DIRECT [facility] Last Admin: 03/07/21 11:56 Dose: 125 mls/hr Insulin Human Regular (Insulin Regular, Human 100 Units/1 Ml) 0 units SUB-Q ACHS [facility]; Protocol Labetalol HCl (Labetalol 200 Mg Tab) 200 mg PO TID [facility] Last Admin: 03/13/21 08:23 Dose: 200 mg Multivitamins/Iron/Calcium ( Izu39-Go Fumarate-Folic Acid Vit Tab) 1 each PO QDAY [facility] Last Admin: 03/12/21 08:47 Dose: 1 each Ondansetron HCl (Ondansetron 4 Mg/2 Ml Inj) 4 mg IV Q6H PRN PRN Reason: Nausea And Vomiting Sodium Chloride (Sodium Chloride Nasal [place] 44ml) 2 spray NS Q4H PRN PRN Reason: Congestion Exam Vital Signs Pulse BP 100 H 153/92 03/06/21 20:17 03/06/21 20:17 Temp Pulse Resp BP Pulse Ox 98.6 F 75 20 168/78 98 03/13/21 08:07 03/13/21 08:23 03/12/21 16:17 03/13/21 08:23 03/13/21 08:07 Results - Laboratory Findings 03/13/21 11:25 03/09/21 18:50 Abnormal lab results 03/12/21 03/12/21 Range/Units 16:12 20:28 POC Glucose 109 H 135 H (70-105) mg/dL
[2021-03-13 12:11] LABS: Albumin 3.2 g/dL (3.9-5); Blood Urea Nitrogen 8 mg/dL (7-17); Calcium 8.6 mg/dL (8.4-10.2); Hemolysis Index 7
[2021-03-13 12:12] LABS: Alanine Aminotransferase < 5 units/L (7-56); BUN/Creatinine Ratio 13
--- NOTE | 2021-03-13 12:30 | Progress Note ---
Assessment and Plan A: 1. IUP at 33 0/7 weeks gestation s/p BMZ and NICU consult 2. Superimposed Pre-e on CHTN for repeat vitals Monitor for severe HTN Titrate Labetalol to maintain BP 120-160/80-105mmhg CBC/CMP q 3-4 days delivery at 34 0/7 weeks 3. GDM continue fasting and 2 hr PP accuchecks -Start sliding scale insulin, moderate dose increase to high dose if sugars remain elevated Subjective - Subjective Date of service: 03/13/21 Principal diagnosis: IUP @ 33+0 wks; pre eclampsia superimposed cHTN, GDM- insulin, limited care Interval history: Denied WELLS, visual changes, CP, RUQ pain Patient reports: movement normal, no new complaints, no loss of fluid, no vaginal bleeding, no contractions Objective - Vital Signs Vital Signs: Vital Signs - 12hr 03/13/21 03/13/21 03/13/21 01:20 01:37 03:00 Temperature 98.5 F Pulse Rate 83 81 Blood Pressure 162/87 143/73 O2 Sat by Pulse Oximetry [ Bilateral Throughout] 03/13/21 03/13/21 03/13/21 03:02 05:04 07:04 Temperature Pulse Rate 72 82 81 Blood Pressure 129/69 140/68 151/79 O2 Sat by Pulse Oximetry [ Bilateral Throughout] 03/13/21 03/13/21 03/13/21 08:07 08:15 08:23 Temperature 98.6 F Pulse Rate 75 75 Blood Pressure 168/78 168/78 O2 Sat by Pulse 98 Oximetry [ Bilateral Throughout] - Exam Narrative Exam: NAD laying in bed comfortably Abdomen: Present: normal appearance FHR: auscultation normal Extremities: normal - Labs Labs: Abnormal Labs 03/08/21 03/08/21 03/09/21 01:29 16:00 18:50 Chloride 108.1 H Carbon Dioxide 19 L BUN 5 L Glucose 182 H POC Glucose Calcium 8.2 L ALT Albumin 3.1 L Ur Total Protein 24 Hr 320.00 H Urine Total Protein < 4 L 03/10/21 03/10/21 03/11/21 14:14 18:25 06:12 Chloride Carbon Dioxide BUN Glucose POC Glucose 122 H 130 H 133 H Calcium ALT Albumin Ur Total Protein 24 Hr Urine Total Protein 03/11/21 03/11/21 03/12/21 13:17 21:33 07:35 Chloride Carbon Dioxide BUN Glucose POC Glucose 148 H 182 H 126 H Calcium ALT Albumin Ur Total Protein 24 Hr Urine Total Protein 03/12/21 03/12/21 03/12/21 10:27 16:12 20:28 Chloride Carbon Dioxide BUN Glucose POC Glucose 130 H 109 H 135 H Calcium ALT Albumin Ur Total Protein 24 Hr Urine Total Protein 03/13/21 11:25 Chloride Carbon Dioxide 20 L BUN Glucose 138 H POC Glucose Calcium ALT < 5 L Albumin 3.2 L Ur Total Protein 24 Hr Urine Total Protein Laboratory Results - last 24 hr 03/12/21 03/12/21 03/13/21 16:12 20:28 08:22 WBC RBC Hgb Hct MCV MCH MCHC RDW Plt Count Sodium Potassium Chloride Carbon Dioxide Anion Gap BUN Creatinine Estimated GFR BUN/Creatinine Ratio Glucose POC Glucose 109 H 135 H 96 Calcium Total Bilirubin AST ALT Alkaline Phosphatase Total Protein Albumin Albumin/Globulin Ratio 03/13/21 03/13/21 03/13/21 11:25 11:25 12:19 WBC 9.1 RBC 3.73 Hgb 10.6 Hct 32.4 MCV 87 MCH 28 MCHC 33 RDW 14.2 Plt Count 242 Sodium 139 Potassium 3.7 Chloride 106.0 Carbon Dioxide 20 L Anion Gap 17 BUN 8 Creatinine 0.6 Estimated GFR > 60 BUN/Creatinine Ratio 13 Glucose 138 H POC Glucose 98 Calcium 8.6 Total Bilirubin < 0.20 AST 9 ALT < 5 L Alkaline Phosphatase 96 Total Protein 6.3 Albumin 3.2 L Albumin/Globulin Ratio 1.0
[2021-03-13] MEDS: FAMOTIDINE 20 MG TAB PO SCH (13:53)
[2021-03-14] MEDS ORDERED: OXYTOCIN DRIP 30,000 MILLIUNITS/500 ML BAG IV ONE (04:08)
--- NOTE | 2021-03-14 07:17 | Event Note ---
Date: 03/14/21 reviewed patient's blood pressures overnight with Amparo Degroot RN. Pt had 2 hours of b/p's in severe range without a call to a provider or intervention. Nurse states she was caring for an emergency and she made her charge nurse aware Dr. Weir aware. Day shift PRASANNA Alamo also made aware.
[2021-03-14] MEDS: INSULIN REGULAR, HUMAN 100 UNITS/1 ML SUB-Q SCH ×4 (08:17→21:49)
[2021-03-14] MEDS: FAMOTIDINE 20 MG TAB PO SCH ×2 (08:18→09:36)
[2021-03-14] MEDS: PRENATAL VIT27-FE FUMARATE-FOLIC ACID VIT TAB PO SCH ×3 (08:19→09:39)
--- NOTE | 2021-03-14 08:48 | Progress Note ---
Assessment and Plan BPs with elevations overnight. Pt reports she was wearing her robe under the cuff and once she took it off her blood pressures were normal. Pt denies WELLS, vision changes, and abdominal pain; reports +FM. POC d/w pt. Pt verbalizes understanding and agrees to POC. Will continue to follow POC as recommended. 1. 33 1/7 weeks gestation - Twice daily NSTs as long as blood pressures are well controlled - BPP q3-4 days ordered for 03/17 - steroids completed for lung Maturity (03/10 & 03/11) - NICU consult completed 2. Superimposed Pre-e on CHTN - Labetalol 300mg TID - Titrate Labetalol to maintain BP 120-160/80-105mmhg - inpatient care until delivery, repeat c/s @ 34 weeks - repeat labs q3-4 days ordered next for 03/17 - monitor for worsening pre-e or severe features 3. GDM - dx 03/09/2021 - consistent carb (ADA) diet - Nutrition consult - continue fasting and 2 hr PP accuchecks -Start sliding scale insulin, moderate dose increase to high dose if sugars remain elevated 4. Non-compliance with care and medical treatment - Patient Problems (1) 32 weeks gestation of Current Visit: Yes Status: Acute (2) Gestational diabetes mellitus (GDM) Current Visit: Yes Status: Acute Qualifiers: Gestational diabetes mellitus control: insulin-controlled Trimester: third trimester Qualified Code(s): O24.414 - Gestational diabetes mellitus in , insulin controlled (3) Non compliance with medical treatment Current Visit: Yes Status: Acute (4) Pre-eclampsia superimposed on chronic hypertension Current Visit: Yes Status: Acute (5) Previous section Current Visit: Yes Status: Acute Subjective - Subjective Date of service: 03/14/21 Principal diagnosis: IUP @ 33+1 wks; pre eclampsia superimposed cHTN, GDM- insulin, limited care Patient reports: movement normal, no new complaints, no loss of fluid, no vaginal bleeding, no contractions Objective - Vital Signs Vital Signs: Vital Signs - 12hr 03/13/21 03/13/21 03/13/21 20:54 20:55 20:58 Pulse Rate 86 86 Blood Pressure 141/77 141/77 O2 Sat by Pulse 82 L Oximetry O2 Sat by Pulse Oximetry [ Bilateral Throughout] 03/13/21 03/13/21 03/13/21 20:59 21:03 21:04 Pulse Rate 86 81 82 Blood Pressure 136/72 O2 Sat by Pulse 99 99 Oximetry O2 Sat by Pulse Oximetry [ Bilateral Throughout] 03/13/21 03/13/21 03/13/21 21:09 21:14 21:19 Pulse Rate 85 92 H 88 Blood Pressure O2 Sat by Pulse 99 99 99 Oximetry O2 Sat by Pulse Oximetry [ Bilateral Throughout] 03/13/21 03/13/21 03/13/21 21:24 21:29 21:34 Pulse Rate 88 89 86 Blood Pressure O2 Sat by Pulse 99 98 98 Oximetry O2 Sat by Pulse Oximetry [ Bilateral Throughout] 03/13/21 03/13/21 03/13/21 21:39 21:44 21:49 Pulse Rate 85 85 87 Blood Pressure O2 Sat by Pulse 98 99 98 Oximetry O2 Sat by Pulse Oximetry [ Bilateral Throughout] 03/13/21 03/13/21 03/13/21 21:54 21:59 22:04 Pulse Rate 89 84 84 Blood Pressure O2 Sat by Pulse 98 98 99 Oximetry O2 Sat by Pulse Oximetry [ Bilateral Throughout] 03/13/21 03/13/21 03/13/21 22:07 22:13 22:18 Pulse Rate 69 Blood Pressure O2 Sat by Pulse 96 94 Oximetry O2 Sat by Pulse 98 Oximetry [ Bilateral Throughout] 03/13/21 03/13/21 03/13/21 22:21 22:26 22:37 Pulse Rate 70 Blood Pressure O2 Sat by Pulse 96 93 93 Oximetry O2 Sat by Pulse Oximetry [ Bilateral Throughout] 03/13/21 03/13/21 03/13/21 22:52 22:58 23:08 Pulse Rate 68 67 Blood Pressure O2 Sat by Pulse 96 95 95 Oximetry O2 Sat by Pulse Oximetry [ Bilateral Throughout] 03/13/21 03/13/21 03/13/21 23:10 23:17 23:45 Pulse Rate 68 61 Blood Pressure O2 Sat by Pulse 91 95 94 Oximetry O2 Sat by Pulse Oximetry [ Bilateral Throughout] 03/13/21 03/13/21 03/13/21 23:49 23:55 23:58 Pulse Rate 69 Blood Pressure O2 Sat by Pulse 95 94 93 Oximetry O2 Sat by Pulse Oximetry [ Bilateral Throughout] 03/14/21 03/14/21 03/14/21 00:03 00:17 00:20 Pulse Rate 69 74 Blood Pressure 135/68 O2 Sat by Pulse 93 96 Oximetry O2 Sat by Pulse Oximetry [ Bilateral Throughout] 03/14/21 03/14/21 03/14/21 02:07 02:45 02:47 Pulse Rate 68 75 73 Blood Pressure 245/141 172/79 159/76 O2 Sat by Pulse Oximetry O2 Sat by Pulse Oximetry [ Bilateral Throughout] 03/14/21 03/14/21 03/14/21 03:49 03:51 03:54 Pulse Rate 84 85 83 Blood Pressure 186/90 184/88 174/79 O2 Sat by Pulse Oximetry O2 Sat by Pulse Oximetry [ Bilateral Throughout] 03/14/21 03/14/21 03/14/21 04:00 04:06 04:15 Pulse Rate 77 75 73 Blood Pressure 199/96 168/76 167/78 O2 Sat by Pulse Oximetry O2 Sat by Pulse Oximetry [ Bilateral Throughout] 03/14/21 03/14/21 03/14/21 06:11 06:47 07:47 Pulse Rate 77 80 71 Blood Pressure 149/71 139/67 142/72 O2 Sat by Pulse Oximetry O2 Sat by Pulse Oximetry [ Bilateral Throughout] 03/14/21 03/14/21 03/14/21 08:10 08:19 08:20 Pulse Rate 70 Blood Pressure O2 Sat by Pulse 85 85 84 Oximetry O2 Sat by Pulse Oximetry [ Bilateral Throughout] 03/14/21 03/14/21 08:25 08:30 Pulse Rate 141 H Blood Pressure O2 Sat by Pulse 79 L Oximetry O2 Sat by Pulse 98 Oximetry [ Bilateral Throughout] - Exam Breasts: deferred Cardiovascular: Regular rate Lungs: Normal air movement Abdomen: Present: normal appearance, soft. Absent: distention, tenderness, guarding Uterus: Present: other (gravid). Absent: tenderness Uterine Contraction Monitor Mode: Palpation Uterine Contraction Pattern: Absent Uterine Tone Measurement Phase: Resting Extremities: normal - Labs Labs: Abnormal Labs 03/08/21 03/08/21 03/09/21 01:29 16:00 18:50 Chloride 108.1 H Carbon Dioxide 19 L BUN 5 L Glucose 182 H POC Glucose Calcium 8.2 L ALT Albumin 3.1 L Ur Total Protein 24 Hr 320.00 H Urine Total Protein < 4 L 03/10/21 03/10/21 03/11/21 14:14 18:25 06:12 Chloride Carbon Dioxide BUN Glucose POC Glucose 122 H 130 H 133 H Calcium ALT Albumin Ur Total Protein 24 Hr Urine Total Protein 03/11/21 03/11/21 03/12/21 13:17 21:33 07:35 Chloride Carbon Dioxide BUN Glucose POC Glucose 148 H 182 H 126 H Calcium ALT Albumin Ur Total Protein 24 Hr Urine Total Protein 03/12/21 03/12/21 03/12/21 10:27 16:12 20:28 Chloride Carbon Dioxide BUN Glucose POC Glucose 130 H 109 H 135 H Calcium ALT Albumin Ur Total Protein 24 Hr Urine Total Protein 03/13/21 03/13/21 03/14/21 11:25 22:04 00:19 Chloride Carbon Dioxide 20 L BUN Glucose 138 H POC Glucose 175 H 106 H Calcium ALT < 5 L Albumin 3.2 L Ur Total Protein 24 Hr Urine Total Protein Laboratory Results - last 24 hr 03/13/21 03/13/21 03/13/21 11:25 11:25 12:19 WBC 9.1 RBC 3.73 Hgb 10.6 Hct 32.4 MCV 87 MCH 28 MCHC 33 RDW 14.2 Plt Count 242 Sodium 139 Potassium 3.7 Chloride 106.0 Carbon Dioxide 20 L Anion Gap 17 BUN 8 Creatinine 0.6 Estimated GFR > 60 BUN/Creatinine Ratio 13 Glucose 138 H POC Glucose 98 Calcium 8.6 Total Bilirubin < 0.20 AST 9 ALT < 5 L Alkaline Phosphatase 96 Total Protein 6.3 Albumin 3.2 L Albumin/Globulin Ratio 1.0 03/13/21 03/13/21 03/14/21 19:31 22:04 00:19 WBC RBC Hgb Hct MCV MCH MCHC RDW Plt Count Sodium Potassium Chloride Carbon Dioxide Anion Gap BUN Creatinine Estimated GFR BUN/Creatinine Ratio Glucose POC Glucose 103 175 H 106 H Calcium Total Bilirubin AST ALT Alkaline Phosphatase Total Protein Albumin Albumin/Globulin Ratio 03/14/21 08:06 WBC RBC Hgb Hct MCV MCH MCHC RDW Plt Count Sodium Potassium Chloride Carbon Dioxide Anion Gap BUN Creatinine Estimated GFR BUN/Creatinine Ratio Glucose POC Glucose 93 Calcium Total Bilirubin AST ALT Alkaline Phosphatase Total Protein Albumin Albumin/Globulin Ratio
[2021-03-14] MEDS ORDERED: hydrALAZINE 20 MG/1 ML INJ IV ONE (17:15)
[2021-03-14] MEDS ORDERED: hydrALAZINE 20 MG/1 ML INJ ONE (17:16)
[2021-03-14] MEDS ORDERED: SODIUM CHLORIDE 0.9% 1000 ML 1,000 ML ONE (17:17)
[2021-03-15] MEDS: INSULIN REGULAR, HUMAN 100 UNITS/1 ML SUB-Q SCH ×4 (07:30→21:16)
--- NOTE | 2021-03-15 08:47 | Progress Note ---
Assessment and Plan pt comfortable in bed, denies pain, headache, or blurred vision. Father of child question plan of delivery. Reviewed rationals and reasoning why delivery is recommended. Both pt and significant encouraged to ask questions when AMFM come to round. 1. 33 2/7 weeks gestation - Twice daily NSTs as long as blood pressures are well controlled - BPP q3-4 days ordered for 03/17 - steroids completed for lung Maturity (03/10 & 03/11) - NICU consult completed 2. Superimposed Pre-e on CHTN - Labetalol 300mg TID - Titrate Labetalol to maintain BP 120-160/80-105mmhg - inpatient care until delivery, repeat c/s @ 34 weeks - repeat labs q3-4 days ordered next for 03/17 - monitor for worsening pre-e or severe features 3. GDM - dx 03/09/2021 - consistent carb (ADA) diet - Nutrition consult - continue fasting and 2 hr PP accuchecks -Start sliding scale insulin, moderate dose increase to high dose if sugars remain elevated 4. Non-compliance with care and medical treatment - Patient Problems (1) Non compliance with medical treatment Current Visit: Yes Status: Acute (2) Previous section Current Visit: Yes Status: Acute (3) Pre-eclampsia superimposed on chronic hypertension Current Visit: Yes Status: Acute (4) 33 weeks gestation of Current Visit: Yes Status: Acute (5) Gestational diabetes mellitus (GDM) Current Visit: Yes Status: Acute Qualifiers: Gestational diabetes mellitus control: insulin-controlled Trimester: third trimester Qualified Code(s): O24.414 - Gestational diabetes mellitus in , insulin controlled Subjective - Subjective Date of service: 03/15/21 Principal diagnosis: IUP @ 33+2 wks; pre eclampsia superimposed cHTN, GDM- insulin, limited care Interval history: EDC Confirmation: 05/01/2021 Past History : 3 Term Births: 1 Premature Births: 0 Living Children: 1 Para: 1 Mult. Births: 0 Prev : 1 Aborta: 0 Elect. Ab: 1 Spont. Ab: 0 Ectopics: 0 # 1 Delivery date: 2005 Weeks Gestation: 11 wks labor: no Delivery type: SAB Comments: Bleeding. D&C, no complications # 2 Delivery date: 2013 Weeks Gestation: 37 labor: no Delivery type: Hours of labor: ? Anesthesia type: general Delivery location: [place] Sex: Female weight: ? Comments: Emergency , don't remeber the details. High blood pressure, Was in the ICU. Past Medical History: Reviewed and updated today: Hypertension Past Surgical History: Reviewed and updated today: negative Family History Summary: Mother - Has Family History of Stomach Cancer - Entered On: 11/09/2020 Father - Has Family History of CVA or Stroke - Entered On: 11/09/2020 Social History: Patient is single Smoking History: Patient has never smoked. Risk Factors: Smoked Tobacco Use: Never smoker Smokeless Tobacco Use: Never Counseled to Quit/Cut Down: yes Passive Smoke Exposure: no HIV High Risk Behavior: no Exercise: no Seatbelt Use: preg-halfway house counselor % No Dietary Counseling Reason: pn yes PAP Smear History: Date of Last PAP Smear: 11/10/2019 Results: Normal Alcohol Use: no Drug Use: no Past Medical History Anesthesia Complications: negative Anemia: negative Autoimmune Disorder: negative Bleeding Disorder: negative Blood Transfusions: negative Breast Disease: negative Diabetes: negative Heart Disease: negative Hypertension: positive Hepatitis/Liver Disease: negative Kidney Disease/UTI: negative Neurologic/Epilepsy/Migraines: negative Phlebitis/Varicosities: negative Psychiatric: negative Pulmonary Disease/Asthma: negative Thyroid Disease: negative Hospitalizations: negative Surgery (Non-warehouse associate driver): negative Abnormal PAP: negative LINH Exposure: negative Infertility: negative Uterine Anomaly: negative Uterine Surgery (not C/S): negative Other Gynecologic Problems: negative Social Hx: Patient is single Smoking History: Patient has never smoked. Infection History Hx of STD: none HIV Risk Eval: no Hepatitis B Risk Eval: low risk Personal hx. of genital herpes: no Partner hx. of genital herpes: no Rash, Viral, or Febrile illness since last LMP? no Varicella/Chicken Pox Status: Previous Disease TB Risk: no Genetic History Congenital Heart Defect: Mom: no Dad: no Mily Disease: Mom: no Dad: no Thalassemia Mom: no Dad: no Neural Tube Defect Mom: no Dad: no Down's Syndrome Mom: no Dad: no Joce-Sachs Mom: no Dad: no Sickle Cell Disease/Trait Mom: no Dad: no Hemophilia Mom: no Dad: no Muscular Dystrophy Mom: no Dad: no Cystic Fibrosis Mom: no Dad: no [place] Chorea Mom: no Dad: no Mental Retardation Mom: no Dad: no Fragile X Mom: no Dad: no Other Genetic/Chromosomal Disorder Mom: no Dad: no Child w/other defect Mom: no Dad: no Enviromental Exposures Xray Exposure: no Medication, drug, or alcohol use since LMP: no Chemical/Other Exposure: no Exposure to Cat Liter: no Hx of Parvovirus (Fifth Disease): no Occupational Exposure to Children: none Laboratory Results Patient reports: movement normal, no new complaints, no loss of fluid, no vaginal bleeding, no contractions Objective - Vital Signs Vital Signs: Vital Signs - 12hr 03/14/21 03/14/21 03/14/21 21:02 21:11 21:12 Temperature Pulse Rate 81 53 L 81 Respiratory Rate Blood Pressure 117/59 Blood Pressure [Right] O2 Sat by Pulse 84 90 Oximetry O2 Sat by Pulse Oximetry [ Bilateral Throughout] 03/14/21 03/14/21 03/14/21 21:13 21:16 21:17 Temperature 97.3 F L Pulse Rate 78 79 Respiratory 20 Rate Blood Pressure Blood Pressure 117/59 [Right] O2 Sat by Pulse 99 99 Oximetry O2 Sat by Pulse 98 Oximetry [ Bilateral Throughout] 03/14/21 03/14/21 03/14/21 21:33 22:02 23:24 Temperature Pulse Rate 18 L 73 75 Respiratory Rate Blood Pressure 117/59 141/80 141/101 Blood Pressure [Right] O2 Sat by Pulse Oximetry O2 Sat by Pulse Oximetry [ Bilateral Throughout] 03/14/21 03/14/21 03/15/21 23:27 23:29 00:23 Temperature Pulse Rate 89 76 74 Respiratory Rate Blood Pressure 132/91 133/83 123/76 Blood Pressure [Right] O2 Sat by Pulse Oximetry O2 Sat by Pulse Oximetry [ Bilateral Throughout] 03/15/21 03/15/21 03/15/21 03:41 05:42 06:20 Temperature 98.5 F Pulse Rate 73 100 H Respiratory 18 Rate Blood Pressure 123/68 137/80 Blood Pressure [Right] O2 Sat by Pulse Oximetry O2 Sat by Pulse Oximetry [ Bilateral Throughout] 03/15/21 03/15/21 03/15/21 08:04 08:05 08:34 Temperature Pulse Rate 75 80 Respiratory Rate Blood Pressure 175/86 175/86 122/68 Blood Pressure [Right] O2 Sat by Pulse Oximetry O2 Sat by Pulse Oximetry [ Bilateral Throughout] - Exam Breasts: normal Abdomen: Present: normal appearance, soft FHR: auscultation normal - Labs Labs: Abnormal Labs 03/08/21 03/08/21 03/09/21 01:29 16:00 18:50 Chloride 108.1 H Carbon Dioxide 19 L BUN 5 L Glucose 182 H POC Glucose Calcium 8.2 L ALT Albumin 3.1 L Ur Total Protein 24 Hr 320.00 H Urine Total Protein < 4 L 03/10/21 03/10/21 03/11/21 14:14 18:25 06:12 Chloride Carbon Dioxide BUN Glucose POC Glucose 122 H 130 H 133 H Calcium ALT Albumin Ur Total Protein 24 Hr Urine Total Protein 03/11/21 03/11/21 03/12/21 13:17 21:33 07:35 Chloride Carbon Dioxide BUN Glucose POC Glucose 148 H 182 H 126 H Calcium ALT Albumin Ur Total Protein 24 Hr Urine Total Protein 03/12/21 03/12/21 03/12/21 10:27 16:12 20:28 Chloride Carbon Dioxide BUN Glucose POC Glucose 130 H 109 H 135 H Calcium ALT Albumin Ur Total Protein 24 Hr Urine Total Protein 03/13/21 03/13/21 03/14/21 11:25 22:04 00:19 Chloride Carbon Dioxide 20 L BUN Glucose 138 H POC Glucose 175 H 106 H Calcium ALT < 5 L Albumin 3.2 L Ur Total Protein 24 Hr Urine Total Protein 03/14/21 21:41 Chloride Carbon Dioxide BUN Glucose POC Glucose 157 H Calcium ALT Albumin Ur Total Protein 24 Hr Urine Total Protein Laboratory Results - last 24 hr 03/14/21 03/14/21 03/14/21 12:13 17:08 21:41 POC Glucose 99 87 157 H 03/15/21 06:23 POC Glucose 96
[2021-03-15] MEDS: FAMOTIDINE 20 MG TAB PO SCH ×2 (10:15→21:05)
[2021-03-15] MEDS: PRENATAL VIT27-FE FUMARATE-FOLIC ACID VIT TAB PO SCH (10:16)
--- NOTE | 2021-03-15 18:46 | Progress Note ---
Assessment and Plan 1. 33 2/7 weeks gestation - - steroids completed for lung Maturity (03/10 & 03/11) - NICU consult completed 2. Superimposed Pre-e on CHTN - Labetalol 300mg TID - Titrate Labetalol to maintain BP 120-160/80-105mmhg - inpatient care until delivery, repeat c/s @ 34 weeks - repeat labs q3-4 days ordered next for 03/17 - monitor for worsening pre-e or severe features 3. GDM - dx 03/09/2021 - consistent carb (ADA) diet - continue fasting and 2 hr PP accuchecks , sliding scale insulin Subjective - Subjective Principal diagnosis: IUP @ 33+2 wks; pre eclampsia superimposed cHTN, GDM- insulin, limited care Interval history: Denied WELLS, visual changes, CP, RUQ pain US at bedside for BPP Patient reports: movement normal, no new complaints, no loss of fluid, no vaginal bleeding, no contractions Objective - Vital Signs Vital Signs: Vital Signs - 12hr 03/15/21 03/15/21 03/15/21 08:04 08:05 08:34 Pulse Rate 75 80 Blood Pressure 175/86 175/86 122/68 O2 Sat by Pulse Oximetry [ Bilateral Throughout] 03/15/21 03/15/21 03/15/21 11:10 12:10 13:56 Pulse Rate 83 86 Blood Pressure 131/61 148/79 O2 Sat by Pulse 98 Oximetry [ Bilateral Throughout] - Exam Narrative Exam: sitting in bed NAD Abdomen: Present: soft - Labs Labs: Abnormal Labs 03/08/21 03/08/21 03/09/21 01:29 16:00 18:50 Chloride 108.1 H Carbon Dioxide 19 L BUN 5 L Glucose 182 H POC Glucose Calcium 8.2 L ALT Albumin 3.1 L Ur Total Protein 24 Hr 320.00 H Urine Total Protein < 4 L 03/10/21 03/10/21 03/11/21 14:14 18:25 06:12 Chloride Carbon Dioxide BUN Glucose POC Glucose 122 H 130 H 133 H Calcium ALT Albumin Ur Total Protein 24 Hr Urine Total Protein 03/11/21 03/11/21 03/12/21 13:17 21:33 07:35 Chloride Carbon Dioxide BUN Glucose POC Glucose 148 H 182 H 126 H Calcium ALT Albumin Ur Total Protein 24 Hr Urine Total Protein 0103/12/21 03/12/21 10:27 16:12 20:28 Chloride Carbon Dioxide BUN Glucose POC Glucose 130 H 109 H 135 H Calcium ALT Albumin Ur Total Protein 24 Hr Urine Total Protein 03/13/21 03/13/21 03/14/21 11:25 22:04 00:19 Chloride Carbon Dioxide 20 L BUN Glucose 138 H POC Glucose 175 H 106 H Calcium ALT < 5 L Albumin 3.2 L Ur Total Protein 24 Hr Urine Total Protein 03/14/21 03/15/21 21:41 12:11 Chloride Carbon Dioxide BUN Glucose POC Glucose 157 H 141 H Calcium ALT Albumin Ur Total Protein 24 Hr Urine Total Protein Laboratory Results - last 24 hr 03/14/21 03/15/21 03/15/21 21:41 06:23 12:11 POC Glucose 157 H 96 141 H 03/15/21 16:29 POC Glucose 98 - Results US- obstetric: pending
--- NOTE | 2021-03-15 19:17 | Ultrasound Report ---
ULTRASOUND BIOPHYSICAL PROFILE INDICATION: well being. COMPARISON: Ultrasound 2 days prior FINDINGS: breathing movement = 2 Gross body movement = 2 tone = 2 Qualitative amniotic fluid volume = 2 Total biophysical score = / Presentation is Cephalic. heart rate is 167 beats per minute. IMPRESSION: biophysical profile = 09/24 Signer Name: Alden Aggarwal MD Signed: 03/15/2021 7:13 PM Workstation Name: [id number]
[2021-03-16] MEDS: FAMOTIDINE 20 MG TAB PO SCH ×2 (01:21→23:28)
--- NOTE | 2021-03-16 08:26 | Progress Note ---
Assessment and Plan VSSAF; Pt denies WELLS, vision changes, and abdominal pain; reports +FM. POC d/w pt. Pt verbalizes understanding and agrees to POC at this time. Pt asking for consult with delivering physician. Will continue to follow POC as recommended. Dr. Robins made aware. 33 3/7 weeks gestation - Twice daily NSTs as long as blood pressures are well controlled - last BPP 8/8 on 03/15, next ordered for 03/17 with growth scan - steroids completed for lung Maturity (03/10 & 03/11) - NICU consult completed -anesthesia consult completed, per pt 2. Superimposed Pre-e on CHTN - Labetalol 300mg TID - Titrate Labetalol to maintain BP 120-160/80-105mmhg - inpatient care until delivery, repeat c/s scheduled @ [address] Robins - repeat labs q3-4 days ordered next for 03/17 - monitor for worsening pre-e or severe features 3. GDM - dx 03/09/2021 - consistent carb (ADA) diet - Nutrition consult - continue fasting and 2 hr PP accuchecks - Sliding scale insulin, moderate dose increase to high dose if sugars consistently elevated 4. Non-compliance with care and medical treatment - Patient Problems (1) Gestational diabetes mellitus (GDM) Current Visit: Yes Status: Acute Qualifiers: Gestational diabetes mellitus control: insulin-controlled Trimester: third trimester Qualified Code(s): O24.414 - Gestational diabetes mellitus in , insulin controlled (2) Non compliance with medical treatment Current Visit: Yes Status: Acute (3) Pre-eclampsia superimposed on chronic hypertension Current Visit: Yes Status: Acute (4) Previous section Current Visit: Yes Status: Acute (5) 33 weeks gestation of Current Visit: Yes Status: Acute Subjective - Subjective Date of service: 03/16/21 Principal diagnosis: IUP @ 33+3 wks; pre eclampsia superimposed cHTN, GDM- insulin Patient reports: movement normal, no new complaints, no loss of fluid, no vaginal bleeding, no contractions Objective - Vital Signs Vital Signs: Vital Signs - 12hr 03/15/21 03/16/21 03/16/21 23:55 04:02 08:12 Pulse Rate 76 65 78 Blood Pressure 136/71 148/71 139/81 - Exam Breasts: deferred Cardiovascular: Regular rate Lungs: Normal air movement Abdomen: Present: normal appearance, soft. Absent: distention, tenderness, guarding Uterus: Present: normal, other (gravid @33wks, growth scan scheduled for tomorrow) Uterine Contraction Monitor Mode: Palpation Uterine Contraction Pattern: Absent Uterine Tone Measurement Phase: Resting Extremities: normal - Labs Labs: Abnormal Labs 03/08/21 03/08/21 03/09/21 01:29 16:00 18:50 Chloride 108.1 H Carbon Dioxide 19 L BUN 5 L Glucose 182 H POC Glucose Calcium 8.2 L ALT Albumin 3.1 L Ur Total Protein 24 Hr 320.00 H Urine Total Protein < 4 L 03/10/21 03/10/21 03/11/21 14:14 18:25 06:12 Chloride Carbon Dioxide BUN Glucose POC Glucose 122 H 130 H 133 H Calcium ALT Albumin Ur Total Protein 24 Hr Urine Total Protein 03/11/21 03/11/21 03/12/21 13:17 21:33 07:35 Chloride Carbon Dioxide BUN Glucose POC Glucose 148 H 182 H 126 H Calcium ALT Albumin Ur Total Protein 24 Hr Urine Total Protein 03/12/21 03/12/21 03/12/21 10:27 16:12 20:28 Chloride Carbon Dioxide BUN Glucose POC Glucose 130 H 109 H 135 H Calcium ALT Albumin Ur Total Protein 24 Hr Urine Total Protein 03/13/21 03/13/21 03/14/21 11:25 22:04 00:19 Chloride Carbon Dioxide 20 L BUN Glucose 138 H POC Glucose 175 H 106 H Calcium ALT < 5 L Albumin 3.2 L Ur Total Protein 24 Hr Urine Total Protein 03/14/21 03/15/21 03/16/21 21:41 12:11 08:09 Chloride Carbon Dioxide BUN Glucose POC Glucose 157 H 141 H 116 H Calcium ALT Albumin Ur Total Protein 24 Hr Urine Total Protein Laboratory Results - last 24 hr 03/15/21 03/15/21 03/15/21 12:11 16:29 21:03 POC Glucose 141 H 98 99 03/16/21 08:09 POC Glucose 116 H
[2021-03-16] MEDS: PRENATAL VIT27-FE FUMARATE-FOLIC ACID VIT TAB PO SCH (10:27)
--- NOTE | 2021-03-16 11:43 | Event Note ---
Date: 03/16/21 Pt seen and evaluated this am no new c/o. She has several questions regarding timing of delivery and technique used for closing the skin as she has had kelloids in the past. Pt was advised that the recommendation is that she delivers at 34 weeks as per [facility] notes on yesterday and throughout hospitalization. "Yes but she said vashti can't make me have a to Friday." I advised that she is correct and she would need to give consent for the c/s but that this is the recommendation and if she does not have the c/s at 34 wks she will likely be admitted until deliver. She expressed understanding confirming that [facility] provider had discussed this with her on yesterday as well. Pt advised of skin closure technique of this provider as I am scheduled to do her section on FridayMar 20 when she will be 34.0 week. All questions were addressed and answered. Pt expressed understanding.
[2021-03-17] MEDS: FAMOTIDINE 20 MG TAB PO SCH (10:28)
[2021-03-17] MEDS: PRENATAL VIT27-FE FUMARATE-FOLIC ACID VIT TAB PO SCH (10:28)
--- NOTE | 2021-03-17 11:59 | Progress Note ---
Assessment and Plan - Patient Problems (1) Gestational diabetes mellitus (GDM) Current Visit: Yes Status: Acute Qualifiers: Gestational diabetes mellitus control: insulin-controlled Trimester: third trimester Qualified Code(s): O24.414 - Gestational diabetes mellitus in , insulin controlled Plan to address problem: We will continue sliding scale insulin. Blood glucoses are acceptable, will we will continue to monitor and adjust insulin dose if needed. (2) HTN (hypertension) Current Visit: Yes Status: Acute Qualifiers: Hypertension type: primary hypertension Qualified Code(s): I10 - Essential (primary) hypertension (3) Pre-eclampsia superimposed on chronic hypertension Current Visit: Yes Status: Acute Plan to address problem: Blood pressures for the most part are reasonable patient without any symptoms of headache visual disturbances or abdominal pain. Again discussed with the patient the plan on delivering at 34 weeks patient states that she is okay with proceeding. We will continue to monitor for signs and symptoms of worsening preeclampsia. Biophysical profile scheduled for today. Appreciate lateral maternal medicine help Dr. Murrlel to do a phone visit with the patient later today (4) Previous section Current Visit: Yes Status: Acute Plan to address problem: Repeat scheduled for March 20 Subjective - Subjective Principal diagnosis: IUP @ 33+3 wks; pre eclampsia superimposed cHTN, GDM- insulin Interval history: No complants no questions on boaed with renan Murrell later Patient reports: movement normal, no new complaints, no loss of fluid, no vaginal bleeding, no contractions Objective - Vital Signs Vital Signs: Vital Signs - 12hr 03/17/21 03/17/21 03/17/21 00:09 04:17 04:18 Temperature Pulse Rate 74 78 75 Blood Pressure 140/75 158/76 151/74 O2 Sat by Pulse Oximetry O2 Sat by Pulse Oximetry [ Bilateral Throughout] 03/17/21 03/17/21 03/17/21 07:52 08:07 08:08 Temperature 98.5 F Pulse Rate 80 80 Blood Pressure 152/76 O2 Sat by Pulse Oximetry O2 Sat by Pulse 100 Oximetry [ Bilateral Throughout] 03/17/21 03/17/21 03/17/21 10:38 10:43 10:48 Temperature Pulse Rate 72 84 88 Blood Pressure O2 Sat by Pulse 95 97 96 Oximetry O2 Sat by Pulse Oximetry [ Bilateral Throughout] 03/17/21 03/17/21 03/17/21 10:53 10:58 11:03 Temperature Pulse Rate 82 93 H 80 Blood Pressure O2 Sat by Pulse 95 98 96 Oximetry O2 Sat by Pulse Oximetry [ Bilateral Throughout] 03/17/21 03/17/21 03/17/21 11:08 11:13 11:18 Temperature Pulse Rate 78 79 87 Blood Pressure O2 Sat by Pulse 95 97 97 Oximetry O2 Sat by Pulse Oximetry [ Bilateral Throughout] 03/17/21 03/17/21 03/17/21 11:23 11:29 11:33 Temperature Pulse Rate 83 86 80 Blood Pressure O2 Sat by Pulse 96 96 97 Oximetry O2 Sat by Pulse Oximetry [ Bilateral Throughout] 03/17/21 03/17/21 03/17/21 11:38 11:44 11:48 Temperature Pulse Rate 82 75 80 Blood Pressure O2 Sat by Pulse 96 97 96 Oximetry O2 Sat by Pulse Oximetry [ Bilateral Throughout] 03/17/21 03/17/21 11:53 11:56 Temperature Pulse Rate 83 87 Blood Pressure O2 Sat by Pulse 100 93 Oximetry O2 Sat by Pulse Oximetry [ Bilateral Throughout] - Exam Breasts: deferred Cardiovascular: Regular rate Lungs: Normal air movement Abdomen: Present: normal appearance Uterus: Present: fundal height above umbilicus FHR: category 1 Uterine Contraction Pattern: Absent Uterine Tone Measurement Phase: Resting - Labs Labs: Abnormal Labs 03/08/21 03/08/21 03/09/21 01:29 16:00 18:50 Chloride 108.1 H Carbon Dioxide 19 L BUN 5 L Glucose 182 H POC Glucose Calcium 8.2 L ALT Albumin 3.1 L Ur Total Protein 24 Hr 320.00 H Urine Total Protein < 4 L 03/10/21 03/10/21 03/11/21 14:14 18:25 06:12 Chloride Carbon Dioxide BUN Glucose POC Glucose 122 H 130 H 133 H Calcium ALT Albumin Ur Total Protein 24 Hr Urine Total Protein 03/11/21 03/11/21 03/12/21 13:17 21:33 07:35 Chloride Carbon Dioxide BUN Glucose POC Glucose 148 H 182 H 126 H Calcium ALT Albumin Ur Total Protein 24 Hr Urine Total Protein 03/12/21 03/12/21 03/12/21 10:27 16:12 20:28 Chloride Carbon Dioxide BUN Glucose POC Glucose 130 H 109 H 135 H Calcium ALT Albumin Ur Total Protein 24 Hr Urine Total Protein 0103/13/21 03/14/21 11:25 22:04 00:19 Chloride Carbon Dioxide 20 L BUN Glucose 138 H POC Glucose 175 H 106 H Calcium ALT < 5 L Albumin 3.2 L Ur Total Protein 24 Hr Urine Total Protein 03/14/21 03/15/21 03/16/21 21:41 12:11 08:09 Chloride Carbon Dioxide BUN Glucose POC Glucose 157 H 141 H 116 H Calcium ALT Albumin Ur Total Protein 24 Hr Urine Total Protein 03/16/21 03/16/21 03/16/21 15:05 18:32 23:19 Chloride Carbon Dioxide BUN Glucose POC Glucose 122 H 143 H 115 H Calcium ALT Albumin Ur Total Protein 24 Hr Urine Total Protein Laboratory Results - last 24 hr 03/16/21 03/16/21 03/16/21 15:05 18:32 23:19 POC Glucose 122 H 143 H 115 H 03/17/21 07:47 POC Glucose 101
--- NOTE | 2021-03-17 12:51 | Progress Note ---
Assessment and Plan Assessment/ Recommendations: 1. 33 4/7 weeks gestation - steroids completed for lung Maturity (03/10 & 03/11) - NICU consult completed - overall reassuring status 2. Superimposed Pre-e on CHTN - Labetalol 300mg TID - Titrate Labetalol to maintain BP 120-160/80-105mmhg - inpatient care until delivery, repeat c/s @ 34 weeks - repeat labs q3-4 days, due today 03/17/21 - monitor for worsening pre-e or severe features 3. GDM - dx 03/09/2021 - consistent carb (ADA) diet - continue fasting and 2 hr PP accuchecks , sliding scale insulin Subjective - Subjective Principal diagnosis: IUP @ 33+3 wks; pre eclampsia superimposed cHTN, GDM- insulin Interval history: Patient rounds completed by telephone secondary to on-call MFM provider being Covid Positive. Verbal consent obtained from patient prior to proceeding with phone consultation. On-call OB provider aware. Patient reports she is doing well and has no complaints. Denies headaches, visual changes, chest pain, SOB or RUQ pain. Good movement. Patient reports: movement normal, no new complaints, no loss of fluid, no vaginal bleeding, no contractions Objective - Vital Signs Vital Signs: Vital Signs - 12hr 03/17/21 03/17/21 03/17/21 04:17 04:18 07:52 Temperature Pulse Rate 78 75 Blood Pressure 158/76 151/74 O2 Sat by Pulse Oximetry O2 Sat by Pulse 100 Oximetry [ Bilateral Throughout] 03/17/21 03/17/21 03/17/21 08:07 08:08 10:38 Temperature 98.5 F Pulse Rate 80 80 72 Blood Pressure 152/76 O2 Sat by Pulse 95 Oximetry O2 Sat by Pulse Oximetry [ Bilateral Throughout] 03/17/21 03/17/21 03/17/21 10:43 10:48 10:53 Temperature Pulse Rate 84 88 82 Blood Pressure O2 Sat by Pulse 97 96 95 Oximetry O2 Sat by Pulse Oximetry [ Bilateral Throughout] 03/17/21 03/17/21 03/17/21 10:58 11:03 11:08 Temperature Pulse Rate 93 H 80 78 Blood Pressure O2 Sat by Pulse 98 96 95 Oximetry O2 Sat by Pulse Oximetry [ Bilateral Throughout] 03/17/21 03/17/21 03/17/21 11:13 11:18 11:23 Temperature Pulse Rate 79 87 83 Blood Pressure O2 Sat by Pulse 97 97 96 Oximetry O2 Sat by Pulse Oximetry [ Bilateral Throughout] 03/17/21 03/17/21 03/17/21 11:29 11:33 11:38 Temperature Pulse Rate 86 80 82 Blood Pressure O2 Sat by Pulse 96 97 96 Oximetry O2 Sat by Pulse Oximetry [ Bilateral Throughout] 03/17/21 03/17/21 03/17/21 11:44 11:48 11:53 Temperature Pulse Rate 75 80 83 Blood Pressure O2 Sat by Pulse 97 96 100 Oximetry O2 Sat by Pulse Oximetry [ Bilateral Throughout] 03/17/21 03/17/21 03/17/21 11:56 11:59 12:04 Temperature Pulse Rate 87 81 82 Blood Pressure O2 Sat by Pulse 93 97 98 Oximetry O2 Sat by Pulse Oximetry [ Bilateral Throughout] 03/17/21 03/17/21 03/17/21 12:09 12:13 12:18 Temperature Pulse Rate 80 82 83 Blood Pressure O2 Sat by Pulse 98 98 97 Oximetry O2 Sat by Pulse Oximetry [ Bilateral Throughout] 03/17/21 03/17/21 03/17/21 12:23 12:25 12:36 Temperature Pulse Rate 89 58 L 85 Blood Pressure 145/88 O2 Sat by Pulse 98 85 Oximetry O2 Sat by Pulse Oximetry [ Bilateral Throughout] - Labs Labs: Abnormal Labs 03/08/21 03/08/21 03/09/21 01:29 16:00 18:50 Chloride 108.1 H Carbon Dioxide 19 L BUN 5 L Glucose 182 H POC Glucose Calcium 8.2 L ALT Albumin 3.1 L Ur Total Protein 24 Hr 320.00 H Urine Total Protein < 4 L 03/10/21 03/10/21 03/11/21 14:14 18:25 06:12 Chloride Carbon Dioxide BUN Glucose POC Glucose 122 H 130 H 133 H Calcium ALT Albumin Ur Total Protein 24 Hr Urine Total Protein 03/11/21 03/11/21 03/12/21 13:17 21:33 07:35 Chloride Carbon Dioxide BUN Glucose POC Glucose 148 H 182 H 126 H Calcium ALT Albumin Ur Total Protein 24 Hr Urine Total Protein 03/12/21 03/12/21 03/12/21 10:27 16:12 20:28 Chloride Carbon Dioxide BUN Glucose POC Glucose 130 H 109 H 135 H Calcium ALT Albumin Ur Total Protein 24 Hr Urine Total Protein 03/13/21 03/13/21 03/14/21 11:25 22:04 00:19 Chloride Carbon Dioxide 20 L BUN Glucose 138 H POC Glucose 175 H 106 H Calcium ALT < 5 L Albumin 3.2 L Ur Total Protein 24 Hr Urine Total Protein 03/14/21 03/15/21 03/16/21 21:41 12:11 08:09 Chloride Carbon Dioxide BUN Glucose POC Glucose 157 H 141 H 116 H Calcium ALT Albumin Ur Total Protein 24 Hr Urine Total Protein 03/16/21 03/16/21 03/16/21 15:05 18:32 23:19 Chloride Carbon Dioxide BUN Glucose POC Glucose 122 H 143 H 115 H Calcium ALT Albumin Ur Total Protein 24 Hr Urine Total Protein Laboratory Results - last 24 hr 03/16/21 03/16/21 03/16/21 15:05 18:32 23:19 POC Glucose 122 H 143 H 115 H 03/17/21 03/17/21 07:47 12:35 POC Glucose 101 87
[2021-03-17 14:39] LABS: Hemoglobin 11.4 gm/dl (10.1-14.3); Mean Corpuscular HGB Conc 33 % (30-34); Mean Corpuscular Volume 87 fl (79-97); Platelet Count 257 K/mm3 (140-440); Red Blood Count 4.01 M/mm3 (3.65-5.03); Red Cell Distribution Width 14.4 % (13.2-15.2)
[2021-03-17 15:02] LABS: Alanine Aminotransferase 11 units/L (7-56); BUN/Creatinine Ratio 9; Blood Urea Nitrogen 7 mg/dL (7-17); Calcium 8.9 mg/dL (8.4-10.2); Hemolysis Index 2
--- NOTE | 2021-03-17 17:09 | Ultrasound Report ---
ULTRASOUND BIOPHYSICAL PROFILE INDICATION: FWB. COMPARISON: 2 days prior FINDINGS: breathing movement = 2 Gross body movement = 2 tone = 2 Qualitative amniotic fluid volume = 2 Total biophysical score = 8/8 Presentation is Cephalic. heart rate is 153 beats per minute. Biparietal diameter: 8.4 cm, 33 weeks 6 days Head circumference 31.6 cm, 35 weeks 3 days Abdominal circumference 31.7 cm, 35 weeks 4 days Femur length 6.7 cm, 34 weeks 4 days Amniotic fluid index is 19.1 cm, within normal limits. IMPRESSION: biophysical profile = 8/8 Estimated weight at this time is 2605 g. Signer Name: Alden Aggarwal MD Signed: 03/17/2021 5:05 PM Workstation Name: [id number]
[2021-03-18] MEDS: PRENATAL VIT27-FE FUMARATE-FOLIC ACID VIT TAB PO SCH (09:47)
[2021-03-18] MEDS: FAMOTIDINE 20 MG TAB PO SCH (10:00)
--- NOTE | 2021-03-18 12:45 | Progress Note ---
Assessment and Plan - Patient Problems (1) Gestational diabetes mellitus (GDM) Current Visit: Yes Status: Acute Qualifiers: Gestational diabetes mellitus control: insulin-controlled Trimester: third trimester Qualified Code(s): O24.414 - Gestational diabetes mellitus in , insulin controlled Plan to address problem: Continue present management (2) HTN (hypertension) Current Visit: Yes Status: Acute Qualifiers: Hypertension type: primary hypertension Qualified Code(s): I10 - Essential (primary) hypertension (3) Pre-eclampsia superimposed on chronic hypertension Current Visit: Yes Status: Acute Plan to address problem: Blood pressures for the most part are reasonable patient without any symptoms of headache visual disturbances or abdominal pain. Again discussed with the patient the plan on delivering at 34 weeks patient states that she is okay with proceeding. We will continue to monitor for signs and symptoms of worsening preeclampsia. Biophysical profile yesterday was 8 out of 8 (4) Previous section Current Visit: Yes Status: Acute Plan to address problem: Repeat scheduled for March 20 Subjective - Subjective Date of service: 03/18/21 Principal diagnosis: IUP @ 33+4 wks; pre eclampsia superimposed cHTN, GDM- insulin Interval history: r Patient reports: movement normal, no new complaints, no loss of fluid, no vaginal bleeding, no contractions Objective - Vital Signs Vital Signs: Vital Signs - 12hr 03/18/21 03/18/21 03/18/21 02:58 07:00 07:15 Temperature 98 F Pulse Rate 73 66 67 Respiratory 16 Rate Blood Pressure 138/69 144/77 Blood Pressure 144/77 [Right] O2 Sat by Pulse 99 Oximetry O2 Sat by Pulse Oximetry [ Bilateral Throughout] 03/18/21 03/18/21 03/18/21 07:16 07:30 10:18 Temperature Pulse Rate 67 90 Respiratory Rate Blood Pressure 129/73 Blood Pressure [Right] O2 Sat by Pulse 99 Oximetry O2 Sat by Pulse 99 Oximetry [ Bilateral Throughout] 03/18/21 10:58 Temperature 98.5 F Pulse Rate Respiratory Rate Blood Pressure Blood Pressure [Right] O2 Sat by Pulse Oximetry O2 Sat by Pulse Oximetry [ Bilateral Throughout] - Exam Narrative Exam: Patient sitting in wheelchair without complaints of returning from visit to the garden. Breasts: deferred - Labs Labs: Abnormal Labs 03/08/21 03/08/21 03/09/21 01:29 16:00 18:50 Sodium Chloride 108.1 H Carbon Dioxide 19 L BUN 5 L Glucose 182 H POC Glucose Calcium 8.2 L ALT Albumin 3.1 L Ur Total Protein 24 Hr 320.00 H Urine Total Protein < 4 L 03/10/21 03/10/21 03/11/21 14:14 18:25 06:12 Sodium Chloride Carbon Dioxide BUN Glucose POC Glucose 122 H 130 H 133 H Calcium ALT Albumin Ur Total Protein 24 Hr Urine Total Protein 03/11/21 03/11/21 03/12/21 13:17 21:33 07:35 Sodium Chloride Carbon Dioxide BUN Glucose POC Glucose 148 H 182 H 126 H Calcium ALT Albumin Ur Total Protein 24 Hr Urine Total Protein 03/12/21 03/12/21 03/12/21 10:27 16:12 20:28 Sodium Chloride Carbon Dioxide BUN Glucose POC Glucose 130 H 109 H 135 H Calcium ALT Albumin Ur Total Protein 24 Hr Urine Total Protein 03/13/21 03/13/21 03/14/21 11:25 22:04 00:19 Sodium Chloride Carbon Dioxide 20 L BUN Glucose 138 H POC Glucose 175 H 106 H Calcium ALT < 5 L Albumin 3.2 L Ur Total Protein 24 Hr Urine Total Protein 03/14/21 03/15/21 03/16/21 21:41 12:11 08:09 Sodium Chloride Carbon Dioxide BUN Glucose POC Glucose 157 H 141 H 116 H Calcium ALT Albumin Ur Total Protein 24 Hr Urine Total Protein 03/16/21 03/16/21 03/16/21 15:05 18:32 23:19 Sodium Chloride Carbon Dioxide BUN Glucose POC Glucose 122 H 143 H 115 H Calcium ALT Albumin Ur Total Protein 24 Hr Urine Total Protein 03/17/21 03/17/21 13:07 19:33 Sodium 131 L D Chloride Carbon Dioxide 21 L BUN Glucose 114 H POC Glucose 120 H Calcium ALT Albumin 3.0 L Ur Total Protein 24 Hr Urine Total Protein Laboratory Results - last 24 hr 03/17/21 03/17/21 03/17/21 13:07 13:07 19:33 WBC 9.8 RBC 4.01 Hgb 11.4 Hct 35.0 MCV 87 MCH 28 MCHC 33 RDW 14.4 Plt Count 257 Sodium 131 L D Potassium 3.6 Chloride 101.2 Carbon Dioxide 21 L Anion Gap 12 BUN 7 Creatinine 0.8 Estimated GFR > 60 BUN/Creatinine Ratio 9 Glucose 114 H POC Glucose 120 H Calcium 8.9 Total Bilirubin < 0.20 AST 8 ALT 11 Alkaline Phosphatase 109 Total Protein 6.3 Albumin 3.0 L Albumin/Globulin Ratio 0.9 03/18/21 07:17 WBC RBC Hgb Hct MCV MCH MCHC RDW Plt Count Sodium Potassium Chloride Carbon Dioxide Anion Gap BUN Creatinine Estimated GFR BUN/Creatinine Ratio Glucose POC Glucose 90 Calcium Total Bilirubin AST ALT Alkaline Phosphatase Total Protein Albumin Albumin/Globulin Ratio
[2021-03-18] MEDS: INSULIN REGULAR, HUMAN 100 UNITS/1 ML SUB-Q SCH (16:19)
[2021-03-19] MEDS: FAMOTIDINE 20 MG TAB PO SCH (02:24)
--- NOTE | 2021-03-19 09:34 | Progress Note ---
Assessment and Plan VSSAF at this time, increased BP noted near when PO dose due; Pt denies WELLS, vision changes, and abdominal pain; reports +FM. POC d/w pt. Pt verbalizes understanding and agrees to POC at this time. Will continue to follow POC as recommended. Delivery discussed for tomorrow and pt agrees. Dr. Weir aware. 1. 33 6/7 weeks gestation - Twice daily NSTs as long as blood pressures are well controlled - last BPP / on 03/17 - steroids completed for lung Maturity (03/10 & 03/11) - NICU consult completed -anesthesia consult completed, per pt 2. Superimposed Pre-e on CHTN - Labetalol 300mg TID - Titrate Labetalol to maintain BP 120-160/80-105mmhg - inpatient care until delivery, repeat c/s scheduled @ [address] Selvin zhang - labs stable, repeat labs q3-4 days last completed 03/17 - monitor for worsening pre-e or severe features 3. GDM - dx 03/09/2021 - consistent carb (ADA) diet - Nutrition consult - continue fasting and 2 hr PP accuchecks - Sliding scale insulin, moderate dose increase to high dose if sugars consistently elevated 4. Non-compliance with care and medical treatment - Patient Problems (1) Gestational diabetes mellitus (GDM) Current Visit: Yes Status: Acute Qualifiers: Gestational diabetes mellitus control: insulin-controlled Trimester: third trimester Qualified Code(s): O24.414 - Gestational diabetes mellitus in , insulin controlled (2) Non compliance with medical treatment Current Visit: Yes Status: Acute (3) Pre-eclampsia superimposed on chronic hypertension Current Visit: Yes Status: Acute (4) Previous section Current Visit: Yes Status: Acute (5) 33 weeks gestation of Current Visit: Yes Status: Acute Subjective - Subjective Date of service: 03/19/21 Principal diagnosis: IUP @ 33+6 wks; pre eclampsia superimposed cHTN, GDM- insulin Patient reports: movement normal, no new complaints, no loss of fluid, no vaginal bleeding, no contractions Objective - Vital Signs Vital Signs: Vital Signs - 12hr 03/19/21 03/19/21 03/19/21 00:38 04:00 04:08 Temperature 98.8 F Pulse Rate 86 73 Respiratory 16 Rate Blood Pressure 144/79 146/87 Blood Pressure [Right] O2 Sat by Pulse Oximetry O2 Sat by Pulse Oximetry [ Bilateral Throughout] 03/19/21 03/19/21 03/19/21 07:30 08:13 08:15 Temperature 98.1 F Pulse Rate 80 71 70 Respiratory 20 Rate Blood Pressure 135/72 Blood Pressure 135/72 [Right] O2 Sat by Pulse 100 99 Oximetry O2 Sat by Pulse 100 Oximetry [ Bilateral Throughout] 03/19/21 03/19/21 08:20 08:25 Temperature Pulse Rate 66 75 Respiratory Rate Blood Pressure Blood Pressure [Right] O2 Sat by Pulse 99 100 Oximetry O2 Sat by Pulse Oximetry [ Bilateral Throughout] - Exam Breasts: deferred Cardiovascular: Regular rate Lungs: Normal air movement Abdomen: Present: normal appearance, soft. Absent: distention, tenderness, guarding Uterus: Present: normal, other (gravid) Uterine Contraction Monitor Mode: Palpation Uterine Contraction Pattern: Absent Uterine Tone Measurement Phase: Resting Extremities: normal - Labs Labs: Abnormal Labs 03/08/21 03/08/21 03/09/21 01:29 16:00 18:50 Sodium Chloride 108.1 H Carbon Dioxide 19 L BUN 5 L Glucose 182 H POC Glucose Calcium 8.2 L ALT Albumin 3.1 L Ur Total Protein 24 Hr 320.00 H Urine Total Protein < 4 L 03/10/21 03/10/21 03/11/21 14:14 18:25 06:12 Sodium Chloride Carbon Dioxide BUN Glucose POC Glucose 122 H 130 H 133 H Calcium ALT Albumin Ur Total Protein 24 Hr Urine Total Protein 03/11/21 03/11/21 03/12/21 13:17 21:33 07:35 Sodium Chloride Carbon Dioxide BUN Glucose POC Glucose 148 H 182 H 126 H Calcium ALT Albumin Ur Total Protein 24 Hr Urine Total Protein 03/12/21 03/12/21 03/12/21 10:27 16:12 20:28 Sodium Chloride Carbon Dioxide BUN Glucose POC Glucose 130 H 109 H 135 H Calcium ALT Albumin Ur Total Protein 24 Hr Urine Total Protein 03/13/21 03/13/21 03/14/21 11:25 22:04 00:19 Sodium Chloride Carbon Dioxide 20 L BUN Glucose 138 H POC Glucose 175 H 106 H Calcium ALT < 5 L Albumin 3.2 L Ur Total Protein 24 Hr Urine Total Protein 03/14/21 03/15/21 03/16/21 21:41 12:11 08:09 Sodium Chloride Carbon Dioxide BUN Glucose POC Glucose 157 H 141 H 116 H Calcium ALT Albumin Ur Total Protein 24 Hr Urine Total Protein 03/16/21 03/16/21 03/16/21 15:05 18:32 23:19 Sodium Chloride Carbon Dioxide BUN Glucose POC Glucose 122 H 143 H 115 H Calcium ALT Albumin Ur Total Protein 24 Hr Urine Total Protein 03/17/21 03/17/21 03/18/21 13:07 19:33 16:12 Sodium 131 L D Chloride Carbon Dioxide 21 L BUN Glucose 114 H POC Glucose 120 H 130 H Calcium ALT Albumin 3.0 L Ur Total Protein 24 Hr Urine Total Protein Laboratory Results - last 24 hr 03/18/21 03/19/21 16:12 08:27 POC Glucose 130 H 105
[2021-03-19 13:39] LABS: Hematocrit 33.5 % (30.3-42.9); Mean Corpuscular HGB Conc 33 % (30-34); Mean Corpuscular Volume 85 fl (79-97); Platelet Count 248 K/mm3 (140-440); Red Blood Count 3.92 M/mm3 (3.65-5.03); Red Cell Distribution Width 14.6 % (13.2-15.2)
--- NOTE | 2021-03-20 01:06 | Anesthesia Consultation ---
Anesthesia Consult and Med Hx Date of service: 03/20/21 - Airway Anesthetic Teeth Evaluation: Good ROM Head & Neck: Adequate Mental/Hyoid Distance: Adequate Mallampati Class: Class III Intubation Access Assessment: Possibly Difficult - Pulmonary Exam CTA: Yes - Cardiac Exam Cardiac Exam: RRR - Pre-Operative Health Status ASA Pre-Surgery Classification: ASA3 Proposed Anesthetic Plan: Spinal Nerve Block: TAP - Pulmonary Hx Smoking: No Hx Asthma: No COPD: No Hx Pneumonia: No Hx Sleep Apnea: No - Cardiovascular System Hx Hypertension: Yes Hx Heart Attack/AMI: No Hx Angina: No - Central Nervous System Hx Seizures: No Hx Psychiatric Problems: No - Gastrointestinal Hx Gastroesophageal Reflux Disease: No - Endocrine Hx Renal Disease: No Hx End Stage Renal Disease: No Hx Liver Disease: No Hx Insulin Dependent Diabetes: No Hx Non-Insulin Dependent Diabetes: No Hx Hypothyroidism: No Hx Hyperthyroidism: No - Hematic Hx Anemia: No Hx Sickle Cell Disease: No - Other Systems Hx Alcohol Use: Yes Hx Obesity: Yes - Additional Comments Anesthesia Medical History Comments: previous c/s
[2021-03-20] MEDS ORDERED: FAMOTIDINE 20 MG/2 ML INJ IV ONE (06:30)
[2021-03-20] MEDS ORDERED: OXYTOCIN DRIP 30 UNITS/500 ML BAG IV SCH (06:30)
[2021-03-20] MEDS ORDERED: BICITRA ORAL LIQD 30ML PO ONE (06:30)
[2021-03-20] MEDS ORDERED: METOCLOPRAMIDE 10 MG/2 ML INJ IV ONE (06:30)
[2021-03-20] MEDS ORDERED: ceFAZolin/Water 2 GM/20 ML 2 GM/20 ML SYRINGE IV NR (07:00)
--- NOTE | 2021-03-20 07:34 | Event Note ---
Date: 03/20/21 Pt voiced no c/o this am. All risk, benefits and alternatives were d/w pt and questions were addressed and answered. Consents signed and placed on the chart.
--- NOTE | 2021-03-20 08:06 | Anesthesia Day of Surgery ---
Anesthesia Day of Surgery - Day of Surgery Patient Examined: Yes Patient H&P Reviewed: Yes Patient is NPO: Yes Beta Blockers: No Cardiac Clearance: No Pulmonary Clearance: No Heber's Test: N/A
--- NOTE | 2021-03-20 08:07 | Progress Note ---
Spinal Anesthesia Block - Spinal Anesthesia Block Start Time: 07:40 Stop Time: 07:47 Performed by:: SHANA MANUEL ([facility]) Procedure: Spinal anesthesia block is being performed for [c/s]. H&P, labs have been reviewed. Patient's questions and concerns have been answered. Informed consent has been performed. Timeout has was performed. Patient in sitting position on side of bed. Sterile prep and drape was performed. 3 mL 1% lidocaine skin wheal at L [3]-L [4]. Needle introducer advanced. 25-gauge spinal needle advanced, [+] CSF [-] blood. [Marcaine 10mg and Precedex 5mcg] Spinal dose was given. All needles removed. Patient tolerated procedure well.
[2021-03-20] MEDS ORDERED: MAGNESIUM SULFATE 40GM/1000ML 40 GM/1,000 ML BAG IV ONE (08:27)
[2021-03-20] MEDS ORDERED: HYDROmorphone 1 MG/1 ML INJ IV PRN (08:30)
[2021-03-20] MEDS ORDERED: PROMETHAZINE 25 MG RECT SUPP PR PRN (09:00)
[2021-03-20] MEDS ORDERED: PROMETHAZINE 25 MG TAB PO PRN (09:00)
[2021-03-20] MEDS ORDERED: ONDANSETRON 4 MG/2 ML INJ IV PRN (09:00)
[2021-03-20] MEDS ORDERED: diphenhydrAMINE 50 MG/ML VIAL IV PRN (09:00)
[2021-03-20] MEDS ORDERED: NalbUPHINE 10 MG/1 ML INJ IV PRN (09:00)
[2021-03-20] MEDS ORDERED: NALOXONE 0.4 MG/1 ML INJ IV PRN (09:00)
--- NOTE | 2021-03-20 09:04 | Operative Report ---
Operative Report Operative Report: Date of procedure: 03/20/2021 Pre-operative diagnosis: 34 weeks gestation Chronic hypertension Superimposed severe preeclampsia Gestational diabetes Obesity Post-operative diagnosis: Same Procedure name(s): Repeat low transverse section via Pfannenstiel skin incision Surgeon: Dr. Robins Echocardiologist: AYAZ Anesthesia: Combined spinal epidural QBL: 498ml Urine output: 100 mL of clear urine out at the end of the procedure Fluids: 1500 mL Findings: Liveborn female weight 4 pounds 12 ounces Apgars of 8 and 9 at 1 and 5 minutes Grossly normal fallopian tubes and ovaries bilaterally Approximately 2 cm fibroid in the anterior lower uterine segment. Indications: Patient was admitted at approximately 28 weeks gestation due to elevated blood pressures. Patient was noted to have severe preeclampsia and remained in-house until 34 weeks gestation patient also was diagnosed with gestational diabetes during her hospital stay. Patient had previous section. All risk benefits and alternatives were discussed with the patient. Patient desired repeat section. Procedure: Patient was taking to the operating room. Patient was then prepped and draped in sterile fashion after anesthesia was found to be adequate. A low transverse skin incision was made with the scalpel through previous incisional scar and carried down to the underlying layer of fascia with the Bovie. The fascia was then incised in the midline and this incision was extended bilaterally with the Bovie. The superior aspect of the fascia was grasped with Ruddy clamps tented upward and dissected off of the anterior rectus muscles with the scalpel. In similar fashion the inferior aspect of the fascia was grasped with Ruddy clamps tented upward and dissected off of the anterior rectus muscles. The rectus muscles were then bluntly divided in the midline. The peritoneum was identified and entered into sharply. The Dusty retractor was placed. The bladder blade was replaced. A lower transverse uterine incision was made with the scalpel and extended bilaterally with the bandage scissors. Artificial rupture of membranes was performed yielding [clear amniotic fluid]. The 's head was then delivered atraumatically. The anterior shoulder and rest of delivered without difficulty. Nuchal cord x1 was noted and easily reduced. The umbilical cord was clamped x2. The cord was cut. The was then placed in sterile bassinet. [The cord blood was collected]. The placenta was manually extracted in its entirety. The uterus was exteriorized and cleared of all clots and debris. The uterine incision was closed using 0 Vicryl in a running locking fashion. Several [id number] sutures were used along incision line to secure excellent hemostasis. The posterior cul-de-sac was copiously irrigated. The uterus was returned to the abdomen. The gutters were also irrigated. The anterior rectus muscles were reapproximated using 3-0 Vicryl. The anterior rectus fascia was reapproximated using 0 Vicryl in a running fashion. The subcuticular fat was reapproximated using 2-0 Vicryl in a running fashion. The skin was reapproximated with 4-0 Monocryl in a subcuticular stitch. The patient tolerated the procedure well. Sponge lap and needle counts were all correct x3. Patient was taken to the recovery room awake and in stable condition.
[2021-03-20] MEDS ORDERED: hydrALAZINE 20 MG/1 ML INJ ONE (09:19)
[2021-03-20] MEDS: MAGNESIUM SULFATE 40GM/1000ML 40 GM/1,000 ML BAG IV SCH (09:20)
[2021-03-20] MEDS ORDERED: LANOLIN/ZINC/DIMETHICONE (LANSINOH) 7 GM TP PRN (10:00)
[2021-03-20] MEDS ORDERED: WITCH HAZEL/ GLYCERIN PAD TP PRN (10:00)
[2021-03-20] MEDS ORDERED: HYDROcodone/ACETAMINOPHEN 5-325 MG TAB PO PRN (10:00)
[2021-03-20] MEDS ORDERED: KETOROLAC 30 MG/1 ML INJ IV PRN ×2 (10:00)
[2021-03-20] MEDS ORDERED: hydrALAZINE 20 MG/1 ML INJ IV ONE (10:30)
[2021-03-20] MEDS: FAMOTIDINE 20 MG TAB PO SCH (10:35)
[2021-03-20] MEDS: ceFAZolin/NS 1 GM/50 ML 1 GM/50 ML BAG IV SCH ×2 (10:35→18:29)
[2021-03-20] MEDS: INSULIN REGULAR, HUMAN 100 UNITS/1 ML SUB-Q SCH (12:27)
[2021-03-20] MEDS: HYDROcodone/ACETAMINOPHEN 5-325 MG TAB PO PRN (18:36)
[2021-03-20] MEDS ORDERED: LACTATED RINGERS 1,000 ML ONE (21:48)
[2021-03-20 23:14] LABS: Hematocrit 36.6 % (30.3-42.9); Hemoglobin 11.9 gm/dl (10.1-14.3)
[2021-03-21] MEDS: HYDROcodone/ACETAMINOPHEN 5-325 MG TAB PO PRN ×3 (00:58→23:56)
[2021-03-21] MEDS: MAGNESIUM SULFATE 40GM/1000ML 40 GM/1,000 ML BAG IV SCH (05:49)
[2021-03-21] MEDS: IBUPROFEN 800 MG TAB PO PRN ×2 (06:42→12:00)
--- NOTE | 2021-03-21 07:36 | Progress Note ---
Assessment and Plan A: 35 y.o. s/p rpt . Pre eclampsia superimposed on cHTN. Magnesium infusion. - Patient Problems (1) Pre-eclampsia superimposed on chronic hypertension Current Visit: Yes Status: Acute Plan to address problem: Continue with mag infusion. D/t to be turned off @ 0920am. Continue to monitor blood pressures. Continue to monitor for s/sx of worsening pre eclampsia. Continue to with Labetalol 300mg TID. Transfer to mother baby once magnesium infusion discontinued. -Transfer if patient remains stable. (2) delivery delivered Onset Date: ~03/20/21 Current Visit: Yes Status: Acute Plan to address problem: Continue with care. Advance diet as tolerated. Encourage ambulation once magnesium infusion discontinued. Encourage use of incentive spirometry. Subjective - Subjective Date of service: 03/21/21 Principal diagnosis: s/p rpt , POD #1, pre e superimposed on cHTN, mag infusion Interval history: Pt denies WELLS, blurred vision spots before her eyes, chest pain, shortness of breath, upper abdominal pain, and shortness of breath. Pt states that she is in a lot of pain this AM. Patient reports: appetite normal, flatus, pain poorly controlled (Receiving IV pain medication. ) [place]: doing well, in NICU Objective - Vital Signs Latest vital signs: Vital Signs Temp Pulse Resp BP BP Pulse Ox 03/21/21 07:31 71 153/86 03/21/21 07:30 77 100 03/21/21 07:25 73 100 03/21/21 07:20 77 100 03/21/21 07:19 74 153/86 03/21/21 07:16 75 166/85 03/21/21 07:15 75 100 03/21/21 07:10 77 99 03/21/21 07:05 79 97 03/21/21 07:00 84 98 03/21/21 06:55 78 97 03/21/21 06:50 79 96 03/21/21 06:45 80 98 03/21/21 06:44 97.8 F 03/21/21 06:40 87 96 03/21/21 06:35 83 99 03/21/21 06:30 82 98 03/21/21 06:25 79 97 03/21/21 06:20 77 97 03/21/21 06:15 77 96 03/21/21 06:11 80 143/83 03/21/21 06:10 82 96 03/21/21 06:05 78 98 03/21/21 06:00 78 99 03/21/21 05:55 73 98 03/21/21 05:50 80 99 03/21/21 05:45 76 99 03/21/21 05:40 77 97 03/21/21 05:35 73 97 03/21/21 05:30 77 98 03/21/21 05:25 72 99 03/21/21 05:20 74 98 03/21/21 05:15 72 98 03/21/21 05:11 83 113/70 03/21/21 05:10 75 97 03/21/21 05:05 75 97 03/21/21 05:00 75 96 03/21/21 04:55 76 97 03/21/21 04:50 72 97 03/21/21 04:45 74 98 03/21/21 04:40 77 98 03/21/21 04:35 78 98 03/21/21 04:30 76 99 03/21/21 04:25 77 98 03/21/21 04:20 74 97 03/21/21 04:15 75 97 03/21/21 04:11 75 119/70 03/21/21 04:10 74 98 03/21/21 04:05 74 99 03/21/21 04:00 76 98 03/21/21 03:55 77 97 03/21/21 03:50 75 98 03/21/21 03:45 78 99 03/21/21 03:40 79 98 03/21/21 03:35 80 96 03/21/21 03:30 79 97 03/21/21 03:25 80 98 03/21/21 03:20 79 98 03/21/21 03:15 79 99 02 03:11 76 117/66 03/21/21 03:10 79 98 03/21/21 03:05 78 99 03/21/21 03:00 77 98 03/21/21 02:55 77 99 03/21/21 02:50 78 99 03/21/21 02:45 79 99 03/21/21 02:40 79 99 02 02:35 82 99 03/21/21 02:30 81 98 03/21/21 02:25 79 98 03/21/21 02:20 79 98 03/21/21 02:15 82 99 02 02:10 76 121/72 99 03/21/21 02:05 80 98 02 02:00 78 98 02 01:55 82 98 03/21/21 01:50 76 98 03/21/21 01:45 77 99 03/21/21 01:40 77 99 03/21/21 01:35 76 99 03/21/21 01:30 77 99 03/21/21 01:25 76 99 03/21/21 01:20 74 98 03/21/21 01:15 76 99 03/21/21 01:10 80 99 03/21/21 01:05 82 100 03/21/21 01:00 86 99 03/21/21 00:55 83 99 03/21/21 00:50 85 99 03/21/21 00:45 87 99 03/21/21 00:44 86 112/59 03/21/21 00:40 120 H 84 03/21/21 00:39 82 L 03/20/21 22:55 86 98 02 22:50 85 97 02 22:45 82 97 02 22:44 86 131/90 02 22:40 81 97 02 22:35 82 97 02 22:30 83 98 03/20/21 22:25 84 98 03/20/21 22:20 82 97 02 22:15 81 99 02 22:10 81 98 02 22:05 81 98 0201 22:00 79 98 02 21:55 81 98 0201 21:50 82 99 0201 21:45 79 127/76 98 0201 21:40 77 97 02 21:35 81 96 0201 21:30 86 98 02 21:25 78 96 02 21:20 86 95 02 21:15 87 97 02 21:10 80 96 02 21:05 80 97 02 21:00 80 97 02 20:55 77 97 03/20/21 20:50 76 98 03/20/21 20:45 78 111/67 97 03/20/21 20:40 78 97 03/20/21 20:35 78 97 03/20/21 20:30 89 99 03/20/21 20:25 88 97 03/20/21 20:24 88 03/20/21 20:20 82 97 03/20/21 20:15 81 97 03/20/21 20:10 86 98 03/20/21 20:05 85 97 03/20/21 20:00 85 98 03/20/21 19:55 87 99 03/20/21 19:50 87 97 03/20/21 19:45 82 99 03/20/21 19:44 85 127/74 03/20/21 19:40 95 H 99 03/20/21 19:39 97.7 F 03/20/21 19:35 83 98 03/20/21 19:30 85 98 03/20/21 19:25 86 98 03/20/21 19:20 84 99 03/20/21 19:15 88 99 03/20/21 19:10 85 95 03/20/21 19:05 87 96 03/20/21 19:00 87 95 03/20/21 18:55 88 96 03/20/21 18:50 84 97 03/20/21 18:45 86 97 03/20/21 18:44 84 147/86 03/20/21 18:40 88 98 03/20/21 18:35 86 97 03/20/21 18:30 93 H 99 03/20/21 18:25 91 H 99 03/20/21 18:20 88 99 03/20/21 18:15 85 98 03/20/21 18:10 89 98 03/20/21 18:05 85 97 03/20/21 18:00 96 H 99 03/20/21 17:55 87 95 03/20/21 17:50 90 98 03/20/21 17:45 85 98 03/20/21 17:44 86 137/81 02 17:40 90 99 02 17:35 90 98 03/20/21 17:30 90 100 03/20/21 17:25 88 99 03/20/21 17:20 86 99 02/22 17:15 90 98 03/20/21 17:10 85 98 03/20/21 17:05 85 97 03/20/21 17:00 90 98 03/20/21 16:55 89 99 03/20/21 16:50 88 100 03/20/21 16:45 89 97 03/20/21 16:44 82 130/79 02 16:40 91 H 99 03/20/21 16:35 88 99 03/20/21 16:30 85 98 03/20/21 16:25 86 99 03/20/21 16:20 88 99 03/20/21 16:15 86 99 03/20/21 16:10 89 97 03/20/21 16:05 89 99 03/20/21 16:00 87 99 03/20/21 15:55 86 99 03/20/21 15:50 84 98 03/20/21 15:45 84 98 03/20/21 15:44 83 137/81 03/20/21 15:40 89 98 03/20/21 15:35 89 99 03/20/21 15:30 88 98 03/20/21 15:25 83 98 03/20/21 15:20 86 99 03/20/21 15:15 89 99 03/20/21 15:10 90 98 03/20/21 15:05 101 H 98 03/20/21 15:00 86 99 03/20/21 14:55 86 99 03/20/21 14:50 85 99 03/20/21 14:45 82 121/72 97 03/20/21 14:40 86 97 03/20/21 14:35 86 96 03/20/21 14:30 85 98 03/20/21 14:25 87 99 03/20/21 14:20 83 99 03/20/21 14:18 98.1 F 03/20/21 14:15 84 98 03/20/21 14:10 76 97 03/20/21 14:05 82 98 03/20/21 14:00 83 99 03/20/21 13:55 79 98 03/20/21 13:50 83 99 03/20/21 13:45 82 130/74 99 03/20/21 13:40 83 100 03/20/21 13:35 83 97 03/20/21 13:30 76 97 03/20/21 13:25 78 98 03/20/21 13:20 78 98 03/20/21 13:15 77 98 03/20/21 13:10 80 99 03/20/21 13:05 74 99 03/20/21 13:00 74 100 03/20/21 12:55 85 99 03/20/21 12:50 78 98 03/20/21 12:45 75 99 03/20/21 12:44 73 134/74 03/20/21 12:40 85 98 03/20/21 12:35 79 100 03/20/21 12:30 80 98 03/20/21 12:25 77 99 03/20/21 12:20 80 99 03/20/21 12:15 80 100 03/20/21 12:10 81 98 03/20/21 12:05 83 99 03/20/21 12:00 78 99 03/20/21 11:55 86 98 03/20/21 11:50 75 99 03/20/21 11:45 80 136/73 99 03/20/21 11:40 72 99 03/20/21 11:35 76 99 03/20/21 11:30 74 97 03/20/21 11:25 78 99 03/20/21 11:20 81 98 03/20/21 11:15 87 98 03/20/21 11:10 80 98 03/20/21 11:05 76 98 03/20/21 11:00 83 98 03/20/21 10:55 87 99 03/20/21 10:50 80 98 03/20/21 10:45 82 98 03/20/21 10:40 71 98 03/20/21 10:35 74 98 03/20/21 10:33 71 151/82 03/20/21 10:30 78 98 03/20/21 10:28 97.6 F 75 14 141/75 141/75 98 03/20/21 10:25 77 98 03/20/21 10:00 97.6 F 75 14 141/76 98 03/20/21 09:45 97.5 F L 73 14 152/80 98 03/20/21 09:30 97.5 F L 62 16 155/85 98 03/20/21 09:15 97.5 F L 57 L 14 183/101 100 03/20/21 09:10 97.9 F 59 L 14 173/104 98 03/20/21 09:05 98.6 F 57 L 14 168/92 98 03/20/21 09:00 98.6 F 60 14 133/68 100 Intake and Output 03/20/21 03/21/21 03/21/21 22:59 06:59 14:59 Intake Total 1000 Output Total 1560 1525 Balance -1560 -525 Intake: IV 1000 MAGNESIUM SULFATE 40GM/ 1000 1000ML 40 gm In 1,000 ml @ 2 GM/HR 50 mls/hr IV DIRECT JOSÉ MIGUEL Rx#:[id number] Output: Urine 1560 1525 Indwelling Catheter 1560 1525 Other: Total, Output Amount 150 275 - Exam Narrative Exam: Blood pressure ranges have been mostly 117-140's/60-70's. Patient had two elevated blood pressures this AM (150-160's/80's). Attribute this rise in blood pressure to pain. Pt to receive IV pain medication this AM. Amor draining an adequate amount of clear yellow urine (200ml at time of assessment). Breasts: Present: deferred Cardiovascular: Present: Normal S1, Normal S2 Lungs: Present: Clear to auscultation Abdomen: Present: normal appearance, soft, other (Hypoactive bowel sounds) Vulva: both: normal Uterus: Present: normal, other (Light lochia.) Extremities: Present: normal Deep Tendon Reflex Grade: Normal +2 Incision: Present: dressed (No drainage noted.) - Labs Labs: Abnormal lab results 03/20/21 03/20/21 03/20/21 Range/Units 10:34 15:02 21:51 POC Glucose 147 H (70-105) mg/dL Magnesium 3.80 H 5.30 H (1.7-2.3) mg/dL 03/21/21 Range/Units 05:57 POC Glucose (70-105) mg/dL Magnesium 6.40 H (1.7-2.3) mg/dL
--- NOTE | 2021-03-21 10:11 | Post Anesthesia Evaluation ---
- Post Anesthesia Evaluation Patient Participated: Yes Airway Patent: Yes Stable Respiratory Function: Yes Nausea/Vomiting: No Temp > 96.8F: Yes Pain Manageable: Yes Adequeate Hydration: Yes Anesthesia Complications: No Block Receding Appropriately: Yes Patient on Ventilator: No
[2021-03-21] MEDS ORDERED: TETANUS,DIPH,PERTUSS(ACELL) VACCINE 0.5 ML SYRINGE IM ONE (10:30)
[2021-03-21] MEDS: FAMOTIDINE 20 MG TAB PO SCH ×2 (10:40→10:41)
[2021-03-21] MEDS: PRENATAL VIT27-FE FUMARATE-FOLIC ACID VIT TAB PO SCH ×2 (10:40→10:41)
--- NOTE | 2021-03-22 06:32 | Progress Note ---
Assessment and Plan Pt denies complaints this am. Reports breast pumping, ambulating, eating, and voiding without difficulty. POC d/w pt and postoperative pathway encouraged. VSSAF on PO antihypertensives, postop labs reviewed and stable. Discharge precautions reviewed and FU discussed for 1 week postoperative visit. Pt verbalizes understanding and agrees to POC. - Patient Problems (1) Gestational diabetes mellitus (GDM) Current Visit: Yes Status: Acute Qualifiers: Gestational diabetes mellitus control: insulin-controlled Trimester: third trimester Qualified Code(s): O24.414 - Gestational diabetes mellitus in , insulin controlled (2) Non compliance with medical treatment Current Visit: Yes Status: Acute (3) Pre-eclampsia superimposed on chronic hypertension Current Visit: Yes Status: Acute (4) delivery delivered Onset Date: ~03/20/21 Current Visit: Yes Status: Acute Subjective - Subjective Date of service: 03/22/21 Principal diagnosis: s/p rpt , POD #2, pre e superimposed on cHTN, s/p mag infusion Patient reports: appetite normal, voiding normally, pain well controlled, ambulating normally [place]: doing well Objective - Vital Signs Latest vital signs: Vital Signs Temp Pulse Resp BP BP Pulse Ox Pulse Ox 03/22/21 00:56 18 03/21/21 23:56 18 03/21/21 22:11 75 144/79 03/21/21 22:00 99 03/21/21 21:57 98.2 F 75 18 144/79 98 03/21/21 17:48 98.1 F 82 18 109/60 97 03/21/21 17:25 98 03/21/21 14:05 77 119/68 03/21/21 11:10 97.5 F L 79 20 108/61 96 03/21/21 10:49 100 H 82 L 03/21/21 10:44 99 H 82 L 03/21/21 10:42 81 L 03/21/21 10:37 72 85 03/21/21 10:36 80 99 03/21/21 10:31 82 97 03/21/21 10:26 74 98 03/21/21 10:21 75 97 03/21/21 10:16 77 98 03/21/21 10:11 81 120/61 100 03/21/21 10:06 79 100 03/21/21 10:00 81 99 03/21/21 09:55 83 98 02/02/22 09:50 88 99 03/21/21 09:46 69 93 03/21/21 09:45 93 H 96 03/21/21 09:40 81 98 03/21/21 09:35 80 99 03/21/21 09:30 79 99 03/21/21 09:25 72 97 03/21/21 09:20 76 96 03/21/21 09:15 75 96 03/21/21 09:11 73 122/74 03/21/21 09:10 73 99 03/21/21 09:05 70 98 03/21/21 09:00 70 98 03/21/21 08:55 75 99 03/21/21 08:50 74 99 03/21/21 08:45 78 99 03/21/21 08:40 78 99 03/21/21 08:36 77 93 03/21/21 08:35 78 98 03/21/21 08:30 81 99 03/21/21 08:25 79 99 03/21/21 08:20 83 99 03/21/21 08:15 81 98 03/21/21 08:11 74 115/69 03/21/21 08:10 78 99 03/21/21 08:05 84 100 03/21/21 08:00 83 100 03/21/21 07:55 86 99 03/21/21 07:50 86 99 03/21/21 07:45 74 99 03/21/21 07:40 83 100 03/21/21 07:35 74 99 03/21/21 07:31 71 153/86 03/21/21 07:30 77 100 100 03/21/21 07:25 73 100 03/21/21 07:20 77 100 03/21/21 07:19 74 153/86 03/21/21 07:16 75 166/85 03/21/21 07:15 98.1 F 75 18 100 03/21/21 07:10 77 99 03/21/21 07:05 79 97 03/21/21 07:00 84 98 03/21/21 06:55 78 97 03/21/21 06:50 79 96 03/21/21 06:45 80 98 03/21/21 06:44 97.8 F 03/21/21 06:40 87 96 03/21/21 06:35 83 99 Intake and Output 03/21/21 03/21/21 03/22/21 15:59 23:59 07:59 Intake Total 1080 Output Total 400 600 Balance -400 480 Intake: Oral 480 Intake, Free Water 600 Output: Urine 400 600 Indwelling Catheter 400 Void 600 Other: Total, Intake Amount 240 Total, Output Amount 100 600 # Voids Void 1 2 1 - Exam Breasts: Present: normal, Cardiovascular: Present: Regular rate Lungs: Present: Normal air movement Abdomen: Present: normal appearance, soft. Absent: distention Uterus: Present: normal, firm Extremities: Present: normal Incision: Present: dry, intact. Absent: dressed - Labs Labs: Abnormal lab results 03/21/21 Range/Units 07:59 POC Glucose 110 H (70-105) mg/dL
[2021-03-22] MEDS: PRENATAL VIT27-FE FUMARATE-FOLIC ACID VIT TAB PO SCH (08:19)
[2021-03-22] MEDS: HYDROcodone/ACETAMINOPHEN 5-325 MG TAB PO PRN ×2 (08:19→20:41)
[2021-03-22] MEDS: IBUPROFEN 800 MG TAB PO PRN (12:32)
[2021-03-23] MEDS: IBUPROFEN 800 MG TAB PO PRN (00:34)
--- NOTE | 2021-03-23 04:29 | Progress Note ---
Assessment and Plan Pt resting, reports desires to go home. BP elevated over last 24 Hrs, continue Labetolol 300mg q8h, added procardia 30mg qday. Denies WELLS or visual disturbances. Incision care reviewed. encouraged. Will consider d/c later today if BP normalize. - Patient Problems (1) Pre-eclampsia superimposed on chronic hypertension Current Visit: Yes Status: Acute Plan to address problem: Continue close monitoring of blood pressures. (2) delivery delivered Onset Date: ~03/20/21 Current Visit: Yes Status: Acute Plan to address problem: Continue postop pathway Advance activity as tolerated d/c home once b/ps are well controlled Subjective - Subjective Date of service: 03/23/21 Principal diagnosis: s/p rpt , POD #3, pre e superimposed on cHTN, s/p mag infusion Interval history: EDC Confirmation: 05/01/2021 Past History : 3 Term Births: 1 Premature Births: 0 Living Children: 1 Para: 1 Mult. Births: 0 Prev : 1 Aborta: 0 Elect. Ab: 1 Spont. Ab: 0 Ectopics: 0 # 1 Delivery date: 2005 Weeks Gestation: 11 wks labor: no Delivery type: SAB Comments: Bleeding. D&C, no complications # 2 Delivery date: 2013 Weeks Gestation: 37 labor: no Delivery type: Hours of labor: ? Anesthesia type: general Delivery location: [facility] Sex: Female weight: ? Comments: Emergency , don't remeber the details. High blood pressure, Was in the ICU. Past Medical History: Reviewed and updated today: Hypertension Past Surgical History: Reviewed and updated today: negative Family History Summary: Mother - Has Family History of Stomach Cancer - Entered On: 11/09/2020 Father - Has Family History of CVA or Stroke - Entered On: 11/09/2020 Social History: Patient is single Smoking History: Patient has never smoked. Risk Factors: Smoked Tobacco Use: Never smoker Smokeless Tobacco Use: Never Counseled to Quit/Cut Down: yes Passive Smoke Exposure: no HIV High Risk Behavior: no Exercise: no Seatbelt Use: preg-disability counselor % No Dietary Counseling Reason: pn yes PAP Smear History: Date of Last PAP Smear: 11/10/2019 Results: Normal Alcohol Use: no Drug Use: no Past Medical History Anesthesia Complications: negative Anemia: negative Autoimmune Disorder: negative Bleeding Disorder: negative Blood Transfusions: negative Breast Disease: negative Diabetes: negative Heart Disease: negative Hypertension: positive Hepatitis/Liver Disease: negative Kidney Disease/UTI: negative Neurologic/Epilepsy/Migraines: negative Phlebitis/Varicosities: negative Psychiatric: negative Pulmonary Disease/Asthma: negative Thyroid Disease: negative Hospitalizations: negative Surgery (Non-hogshead roller): negative Abnormal PAP: negative LINH Exposure: negative Infertility: negative Uterine Anomaly: negative Uterine Surgery (not C/S): negative Other Gynecologic Problems: negative Social Hx: Patient is single Smoking History: Patient has never smoked. Infection History Hx of STD: none HIV Risk Eval: no Hepatitis B Risk Eval: low risk Personal hx. of genital herpes: no Partner hx. of genital herpes: no Rash, Viral, or Febrile illness since last LMP? no Varicella/Chicken Pox Status: Previous Disease TB Risk: no Genetic History Congenital Heart Defect: Mom: no Dad: no Mily Disease: Mom: no Dad: no Thalassemia Mom: no Dad: no Neural Tube Defect Mom: no Dad: no Down's Syndrome Mom: no Dad: no Joce-Sachs Mom: no Dad: no Sickle Cell Disease/Trait Mom: no Dad: no Hemophilia Mom: no Dad: no Muscular Dystrophy Mom: no Dad: no Cystic Fibrosis Mom: no Dad: no [place] Chorea Mom: no Dad: no Mental Retardation Mom: no Dad: no Fragile X Mom: no Dad: no Other Genetic/Chromosomal Disorder Mom: no Dad: no Child w/other defect Mom: no Dad: no Enviromental Exposures Xray Exposure: no Medication, drug, or alcohol use since LMP: no Chemical/Other Exposure: no Exposure to Cat Liter: no Hx of Parvovirus (Fifth Disease): no Occupational Exposure to Children: none Laboratory Results Patient reports: appetite normal, voiding normally, flatus, ambulating normally, no dizzy ambulation, no nauseated [place]: in NICU Objective - Vital Signs Latest vital signs: Vital Signs Temp Pulse Resp BP Pulse Ox Pulse Ox 03/23/21 01:34 18 03/23/21 00:34 18 03/22/21 23:46 98.0 F 67 20 166/85 99 03/22/21 21:41 18 03/22/21 21:09 65 178/77 03/22/21 20:41 18 03/22/21 20:40 98.2 F 65 18 178/77 98 03/22/21 20:00 99 03/22/21 15:57 98.0 F 77 18 153/83 97 03/22/21 12:08 97.6 F 72 18 133/76 100 03/22/21 08:19 20 03/22/21 08:15 98 03/22/21 07:57 97.7 F 68 18 170/86 99 03/22/21 06:39 98.3 F 66 18 148/63 98 Intake and Output 03/22/21 03/22/21 03/23/21 15:59 23:59 07:59 Intake Total 360 Balance 360 Intake: Intake, Free Water 360 Other: # Voids Void 2 1 - Exam Breasts: Present: normal Lungs: Present: Normal air movement Abdomen: Present: normal appearance, soft Uterus: Present: normal, firm Extremities: Present: normal Incision: Present: normal, intact, other (steri-strips)
[2021-03-23] MEDS: HYDROcodone/ACETAMINOPHEN 5-325 MG TAB PO PRN ×2 (04:47→10:39)
[2021-03-23] MEDS: NIFEdipine XL 30 MG TAB PO SCH ×2 (04:47→10:38)
[2021-03-23] MEDS: PRENATAL VIT27-FE FUMARATE-FOLIC ACID VIT TAB PO SCH (10:38)
[2021-03-23 15:59] VITALS: BP 138/73
--- NOTE | 2021-03-23 16:10 | Discharge Summary ---
Providers - Providers Date of Admission: 03/06/21 21:37 Date of discharge: 03/23/21 (pt desires discharge home today) Attending physician: CINDY BOTELLO MD Primary care physician: CINDY BOTELLO MD Hospitalization Reason for admission: IUP - , observation Delivery: Procedure: section, repeat low transverse Episiotomy: none Laceration: none Incision: normal, dry, intact Other procedures: none complications: none Discharge diagnosis: delivery [place] baby: female Condition at discharge: Stable Disposition: 01 HOME / SELF CARE / HOMELESS - Discharge Diagnoses (1) Gestational diabetes mellitus (GDM) Status: Acute Qualifiers: Gestational diabetes mellitus control: insulin-controlled Trimester: third trimester Qualified Code(s): O24.414 - Gestational diabetes mellitus in , insulin controlled (2) Non compliance with medical treatment Status: Acute (3) Pre-eclampsia superimposed on chronic hypertension Status: Acute Comment: Pt denies WELLS, vision changes, and RUQ pain. Precautions given. Dr. Saez aware. (4) delivery delivered Status: Acute Plan - Discharge Medications Prescriptions: Docusate Sodium [Colace] 100 mg PO BID PRN #60 capsule PRN Reason: Constipation Ferrous Sulfate [Feosol 325 MG tab] 325 mg PO QDAY #60 tablet Labetalol HCl [Labetalol 300mg TAB] 300 mg PO Q8H #90 tab Ibuprofen [Motrin 800 MG tab] 800 mg PO Q8HR PRN #30 tablet PRN Reason: Pain, Moderate (4-6) oxyCODONE /ACETAMINOPHEN [Percocet 5/325] 1 tab PO Q4HR #30 tab NIFEdipine XL [Procardia Xl] 30 mg PO QDAY #30 tablet - Provider Discharge Summary Activity: routine, no sex for 6 weeks, no heavy lifting 4 weeks, no strenuous exercise Diet: routine Instructions: routine Additional instructions: [] Smoking cessation referral if applicable(refer to patient education folder for contact #) [] Refer to [facility] Booklet Call your doctor immediately for: * Fever > 100.5 * Heavy vaginal bleeding ( >1 pad per hour) * Severe persistent headache * Shortness of breath * Reddened, hot, painful area to leg or breast * Drainage or odor from incision. * Keep incision clean and dry at all times and follow doctor's instructions regarding bathing/showering Congratulations! Please call [phone] and schedule a follow up postoperative appointment for Friday03/27/21. Please check your blood pressure daily and notify [facility] if >160 for top number or >100 for bottom number. - Follow up plan Follow up: CINDY BOTELLO MD [Primary Care Provider] - 7 Days
== END 2021-03-23 18:30 | disposition home or self-care (01) | DRG 765 ==
LOC: TRG 17:48 → APU 17:50 → TRG 18:14 → APU 19:09 → TRG 21:37 → LD 21:37 → OB 03-21 10:53
PROVIDERS: ADMIT Student in an Organized Health Care Education/Training Program; ATTEND Student in an Organized Health Care Education/Training Program
PROC: 10D00Z1 Extraction of Products of Conception, Low, Open Approach (ICD-10-PCS; principal; 2021-03-20)
PROC: 3E0234Z Introduction of Serum, Toxoid and Vaccine into Muscle, Percutaneous Approach (ICD-10-PCS; 2021-03-21)
DX: O24.424 Gestational diabetes mellitus in childbirth, insulin controlled (principal); O60.14X0 Preterm labor third trimester with preterm delivery third trimester, not applicable or unspecified; O34.211 Maternal care for low transverse scar from previous cesarean delivery; Z37.0 Single live birth; Z3A.32 32 weeks gestation of pregnancy; Z23 Encounter for immunization; Z91.19 Patient's noncompliance with other medical treatment and regimen; O11.4 Pre-existing hypertension with pre-eclampsia, complicating childbirth; O99.214 Obesity complicating childbirth; Z20.822 Contact with and (suspected) exposure to COVID-19
CPT/HCPCS: 36415; 76816; 76819; 80053; 81001; 82565; 82570; 82951; 82962; 83615; 83735; 84156; 84450; 84460; 84550; 85014; 85018; 85027; 86850; 86900; 86901; 88307; 96360; G0378; J3490; J0360; J0690; J0702; J1170; J2765; J3475; J7120; U0003